=== PATIENT | female | born 1940 | race Caucasian/White ===

== ENCOUNTER → 2018-07-25 | Outpatient (CLI) | payer MEDICARE, BC ==
--- NOTE | 2018-07-26 13:23 | MM ---
Reason for exam: screening (asymptomatic). Last mammogram was performed 1 year and 11 months ago. History: Patient is postmenopausal and has history of breast cancer at age 67. Right breast biopsy 10 years ago invasive cancer. MG 3D Screening Mammo W/Cad Bilateral CC and MLO view(s) were taken. Prior study comparison: August 30, 2016, mammogram. There are scattered fibroglandular densities. No significant changes when compared with prior studies. ASSESSMENT: Benign, BI-RAD 2 RECOMMENDATION: Routine screening mammogram of both breasts in 1 year.
== END | disposition home or self-care (01) ==
LOC: RADMAMWWP 11:01
PROVIDERS: ATTEND Family Medicine
DX: Z12.31 Encounter for screening mammogram for malignant neoplasm of breast (principal)
CPT/HCPCS: 77063; 77067

== ENCOUNTER → 2019-06-04 | Outpatient (CLI) | payer BC, MEDICARE ==
--- NOTE | 2019-06-06 12:16 | P.ARTDOP ---
Arterial Doppler LOWER EXTREMITY ARTERIAL DOPPLER: DATE OF SERVICE: 06/04/2019 Reason for study: Claudication right hip and buttocks. Doppler waveforms: Multiphasic throughout on the left. Multiphasic at the right femoral popliteal as well as the dorsalis pedis. Digital waveform somewhat blunted in the right. Pulse volume recording: Digital waveforms flattened bilaterally. Pressure gradients: Above the low thigh on the right and only at the foot level on the left. Also at the foot level on the right.. Ankle-brachial indices: 0.78 on the right and one on the left.. Toe pressures: 9 on the right, 44 on the left Impression: Suggests moderate right iliofemoral disease. Toe waveforms and pressures suggest either severe vasospastic phenomenon, especially on the right or less likely distal disease. Clinical correlation recommended.
== END | disposition home or self-care (01) ==
LOC: RADUSWWP 13:18
PROVIDERS: ATTEND Family Medicine
DX: I73.9 Peripheral vascular disease, unspecified (principal)
CPT/HCPCS: 93923

== ENCOUNTER → 2019-08-26 | Outpatient (CLI) | payer MEDICARE ==
--- NOTE | 2019-08-27 11:31 | MM ---
Reason for exam: screening (asymptomatic). Last mammogram was performed 1 year and 1 month ago. History: Patient is postmenopausal and has history of breast cancer at age 67. Lumpectomy of the right breast, 2008. Radiation therapy of the right breast, 2008. Physical Findings: A clinical breast exam by your physician is recommended on an annual basis and results should be correlated with mammographic findings. MG 3D Screening Mammo W/Cad Bilateral CC and MLO view(s) were taken. Prior study comparison: July 25, 2018, bilateral MG 3d screening mammo w/cad. August 30, 2016, mammogram. The breast tissue is heterogeneously dense. This may lower the sensitivity of mammography. Finding #1: Architectural distortion in the upper outer quadrant of the right breast consistent with known lumpectomy and treatment changes. Finding #2: There are typically benign dystrophic, round calcifications in both breasts. There is no discrete abnormality. ASSESSMENT: Benign, BI-RAD 2 RECOMMENDATION: Routine screening mammogram of both breasts in 1 year. Manage on a clinical basis with regard to right nipple itching.
== END | disposition home or self-care (01) ==
LOC: RADMAMWWP 12:45
PROVIDERS: ATTEND Family Medicine
DX: Z12.31 Encounter for screening mammogram for malignant neoplasm of breast (principal)
CPT/HCPCS: 77063; 77067

== ENCOUNTER → 2021-02-11 | Outpatient (CLI) | payer MEDICARE ==
--- NOTE | 2021-02-15 09:48 | MM ---
Reason for exam: screening (asymptomatic). Last mammogram was performed 1 year and 6 months ago. History: Patient is postmenopausal and has history of breast cancer at age 67. Lumpectomy of the right breast, 2008. Radiation therapy of the right breast, 2008. Physical Findings: A clinical breast exam by your physician is recommended on an annual basis and results should be correlated with mammographic findings. MG 3D Screening Mammo W/Cad Bilateral CC and MLO view(s) were taken. Prior study comparison: August 26, 2019, bilateral MG 3d screening mammo w/cad. July 25, 2018, bilateral MG 3d screening mammo w/cad. There are scattered fibroglandular densities. Stable right lumpectomy and radiation change. Dystrophic calcifications right breast benign appearing. ASSESSMENT: Benign, BI-RAD 2 RECOMMENDATION: Routine screening mammogram of both breasts.
== END | disposition home or self-care (01) ==
LOC: RADMAMWWP 11:00
PROVIDERS: ATTEND Family Medicine
DX: Z12.31 Encounter for screening mammogram for malignant neoplasm of breast (principal); Z85.3 Personal history of malignant neoplasm of breast; Z78.0 Asymptomatic menopausal state
CPT/HCPCS: 77063; 77067

== ENCOUNTER → 2021-05-28 | Outpatient (CLI) | payer MEDICARE ==
--- NOTE | 2021-05-31 09:37 | CT ---
EXAMINATION TYPE: CT urogram wo/w con DATE OF EXAM: 05/28/2021 COMPARISON: None INDICATION: kamini DLP: 1489.9 mGycm, Automated exposure control for dose reduction was used. CONTRAST: 80 mL of Isovue 300. Study performed without Oral Contrast TECHNIQUE: Axial images were obtained from above the diaphragm to the pubic rami in the axial plane a t 5 mm thick sections. Reconstructed images are reviewed on the computer in the coronal plane. FINDINGS: Limited CT sections are obtained the lung bases. There is a spiculated 1.9 cm area within the right lung base. The major fissure. Complete CT chest recommended for additional evaluation. Infiltrate and neoplasm are within the differential.. CT ABDOMEN: Liver: Normal Spleen: Normal Pancreas: Normal Adrenal glands: The adrenal glands are normal. Gallbladder: Normal Kidneys: No masses are evident. No hydronephrosis is present. There is a 1.1 cm cyst on the superio r pole left kidney. Delayed images were obtained through the kidneys, which remain unremarkable. Three-D reconstructed images and delayed images were obtained in separate computer by the technologis t presented. There is mild prominence of the right ureter. No obstruction is evident. Small kink may be near the proximal right ureter. There is a sectional left ureter not visualized during this exam. Aorta: Vascular calcification is within the aorta. Aorta measures transverse 2.8 cm within the midpo rtion this terminates above the bifurcation. Inferior vena cava: Normal. CT PELVIS: Loops of bowel within the abdomen and pelvis are normal. Diverticulosis without acute diverticulitis is present. There are loops of bowel which are incompletely distended or lack oral contrast limiti ng their evaluation. Appendix: Normal as visualized. Urinary bladder: Normal. No intraluminal masses are evident. Wall appears normal. Genitourinary structures: Uterus is normal. Adnexal regions are clear. Osseous structures: No suspicious lytic or sclerotic lesions. Degenerative changes are through the nichole mbar spine. IMPRESSIONS: 1. Mild right hydroureter of uncertain etiology. 2. No suspicious filling defects within the renal collecting system evident. 3. Suspicious spiculated area within the right lung base. Additional workup with CT chest is recommen ded. 4. Diverticulosis without acute diverticulitis.
== END | disposition home or self-care (01) ==
LOC: RADCTMAIN 15:13
PROVIDERS: ATTEND Urology
DX: N13.30 Unspecified hydronephrosis (principal); K57.30 Diverticulosis of large intestine without perforation or abscess without bleeding
CPT/HCPCS: 82565; 84520; 74178; 36415; 74400; Q9967

== ENCOUNTER → 2021-07-12 | Outpatient (CLI) | payer MEDICARE ==
--- NOTE | 2021-07-12 12:20 | CT ---
EXAMINATION TYPE: CT chest w con DATE OF EXAM: 07/12/2021 COMPARISON: No prior CT chest available for review HISTORY: nodules CT DLP: 232.9 mGycm Automated exposure control for dose reduction was used. CONTRAST: CT scan of the chest is performed with IV Contrast, patient injected with 100 mL of Isovue 300. FINDINGS: LUNGS: Biapical parenchymal scarring right greater than left. More of a masslike area right apical re gion measures 3 cm in greatest dimension. Additional nodular pleural thickening right upper lobe late rally measures 1.3 cm. Pulmonary nodule left upper lobe measures 5.1 mm image 32. Within the right lo wer lobe spiculated density measures 1.4 cm. While the findings are likely postinflammatory in nature I cannot exclude malignancy. PET CT recommended for further evaluation. Hyperinflation compatible wi th COPD. MEDIASTINUM: There are no greater than 1 cm hilar or mediastinal lymph nodes. No pericardial effusi on is seen. Thoracic aorta is of normal caliber. The heart is not enlarged. UPPER ABDOMEN: No significant abnormality appreciated. OTHER: No additional significant abnormality is seen. IMPRESSION: Scattered areas of pulmonary nodularity as discussed felt to reflect postinflammatory change however malignancy is not excluded. Correlate with PET/CT.
== END | disposition home or self-care (01) ==
LOC: RADCTMAIN 11:10
PROVIDERS: ATTEND Internal Medicine
DX: R91.8 Other nonspecific abnormal finding of lung field (principal)
CPT/HCPCS: 82565; 84520; 71260; 36415; Q9967

== ENCOUNTER → 2021-08-13 | Outpatient (CLI) | payer MEDICARE ==
--- NOTE | 2021-08-16 08:26 | PE ---
EXAMINATION TYPE: PET CT fusion skull to thigh DATE OF EXAM: 08/13/2021 COMPARISON: Chest CT July 12, 2021 HISTORY: Solitary pulmonary nodule, abnormal CT. TECHNIQUE: Following the intravenous administration of 10.94 mCi of F-18 FDG, whole body images are performed from the skull base to the midthigh. Images are reviewed on the computer in the coronal, a xial, and sagittal planes. Reconstructed rotating images are created on independent workstation and reviewed on the computer. A localization and attenuation correction CT is performed in conjunction with the PET scan. Blood glucose level is 106. SCAN: Initial Scan FINDINGS: SKULL BASE AND NECK: No abnormal hypermetabolic uptake. CHEST, MEDIASTINUM, AND HILAR REGION: Back wall mild to moderate underlying emphysematous changes red emonstrated with [id number] biapical pleural/parenchymal scarring extending posteriorly and i nferiorly redemonstrated. No abnormal hypermetabolic uptake. Scattered [id number] parenchymal s carring including focal scarring lower lobe axial image #1 redemonstrated. No abnormal hypermetabolic uptake. ABDOMEN AND PELVIS: Normal excretion. No abnormal hypermetabolic uptake. OSSEOUS STRUCTURES: No abnormal metabolic uptake. OTHER CT: Multiple moderate calcified plaque bilateral carotid bulb level. Mild cardiomegaly with mod erate to severe right atrial dilatation. Moderate to severe three-vessel coronary artery calcificatio n. Moderate to severe atherosclerotic changes in the ectatic abdominal aorta extending into iliac branch vessels. Sigmoid colonic diverticulosis. Underlying scoliosis in the lumbar spine. Loss of normal nichole mbar lordosis on the sagittal images. Multilevel moderate spurring. IMPRESSION: No suspicious hypermetabolic uptake to suggest malignancy. Findings are consistent with p ostinflammatory scarring.
== END | disposition home or self-care (01) ==
LOC: RADPETMAIN 11:48
PROVIDERS: ATTEND Internal Medicine Critical Care Medicine
DX: R91.1 Solitary pulmonary nodule (principal)
CPT/HCPCS: 78815; A9552

== ENCOUNTER → 2022-02-17 | Outpatient (CLI) | payer MEDICARE ==
--- NOTE | 2022-02-18 07:55 | BD ---
EXAMINATION TYPE: Axial Bone Density DATE OF EXAM: 02/17/2022 COMPARISON: NONE CLINICAL HISTORY: 81 year old Female. ICD-10 CODE: [id number] OSTEOPOROSIS Height: 65 Weight: 149.0 FRAX RISK QUESTIONS: Alcohol (3 or more units per day): no Family History (Parent hip fracture): no Glucocorticoids (More than 3mos): no (Ex: prednisone, prednisolone, methylprednisolone, dexamethasone, and hydrocortisone). History of Fracture in Adulthood: no Secondary Osteoporosis: 1. Type 1 Diabetes: no 2. Hyperthyroidism: no 3. Menopause before 45: no 4. Malnutrition: no 5. Chronic liver disease: no Rheumatoid Arthritis: no Current Tobacco Use: no RISK FACTORS HISTORY OF: Surgery to Spine/Hip(right/left)/Wrist (right/left): no Family History of Osteoporosis: no Active: no Diet low in dairy products/other sources of calcium: yes Postmenopausal woman: yes Lost more than 2 inches in height since high school: no MEDICATIONS: Additional History: EXAM MEASUREMENTS: Bone mineral densitometry was performed using the [employer] System. Bone mineral density as measured about the Lumbar spine is: ----- L1-L4(G/cm2): 1.371 T Score Values are as follows: ----- L1: 0.1 ----- L2: 1.3 ----- L3: 2.5 ----- L4: 2.6 ----- L1-L4: 1.6 Bone mineral density : baseline Bone mineral density about the R hip (g/cm2): 0.805 Bone mineral density about the L hip (g/cm2): 0.776 T Score values are as follows: -----R Neck: -1.7 -----L Neck: -1.9 -----R Total: -1.3 -----L Total: -1.3 Bone mineral density : baseline FRAX%s: The graph provided illustrates a 15.2% chance for a major osteoporotic fx and a 4.2% chance f or the hips probability for fx in 10 years time. IMPRESSION: Osteopenia (T Score between -2.5 and -1). There is slightly increased risk of fracture and the patient may be considered for treatment. Re-Screen 2-5 years. NOTE: T-SCORE=SD OF THE YOUNG ADULT MEAN.
== END | disposition home or self-care (01) ==
LOC: RADBDWWP 18:07
PROVIDERS: ATTEND Internal Medicine
DX: M85.89 Other specified disorders of bone density and structure, multiple sites (principal)
CPT/HCPCS: 77080

== ENCOUNTER → 2022-02-24 | Outpatient (CLI) | payer MEDICARE ==
--- NOTE | 2022-02-24 13:37 | MM ---
Reason for Exam: Screening (asymptomatic). Last mammogram was performed 1 year(s) and 1 month(s) ago. Patient History: Menarche at age 14. First Full-Term at age 23. Postmenopausal. Breast cancer, right, age 67. 02/07/2000, Benign MG pre op needle loc LT - 2 on the left side. 2008, Lumpectomy on the Right side. 2008, Radiation Therapy on the right side. Prior Study Comparison: 07/25/2018 Bilateral Screening Mammogram, [facility]. 08/26/2019 Bilateral Screening Mammogram, [facility]. 02/11/2021 Bilateral Screening Mammogram, [facility]. Tissue Density: There are scattered fibroglandular densities. Findings: Analyzed By CAD. Diminished size with distortion and dystrophic calcification of posterior upper outer aspect right breast redemonstrated. Occasional scattered benign-appearing round calcifications throughout both breasts are again seen. There is new 7 mm oval circumscribed lesion in the middle depth upper outer quadrant just anterior to the dystrophic calcification roughly 5 cm distance from nipple that warrants follow-up in the right breast. Overall Assessment: Incomplete: need additional imaging evaluation, BI-RAD 0 Management: Diagnostic Breast Ultrasound of the right breast. Targeted ultrasound right breast. Electronically signed and approved by: Jamari Mckenzie M.D.
== END | disposition home or self-care (01) ==
LOC: RADMAMWWP 11:34
PROVIDERS: ATTEND Internal Medicine
DX: Z12.31 Encounter for screening mammogram for malignant neoplasm of breast (principal); Z78.0 Asymptomatic menopausal state
CPT/HCPCS: 77063; 77067

== ENCOUNTER → 2022-03-22 | Outpatient (CLI) | payer MEDICARE ==
--- NOTE | 2022-03-22 15:03 | USB ---
Reason for Exam: Additional evaluation requested from prior study. Patient History: Menarche at age 14. First Full-Term at age 23. Postmenopausal. Breast cancer, right, age 67. 02/07/2000, Benign MG pre op needle loc LT - 2 on the left side. 2008, Lumpectomy on the Right side. 2008, Radiation Therapy on the right side. Prior Study Comparison: 08/26/2019 Bilateral Screening Mammogram, [facility]. 02/11/2021 Bilateral Screening Mammogram, [facility]. 02/24/2022 Bilateral MG 3D screening mammo w/cad, [facility]. Findings: The upper outer quadrant of the right breast, the axilla of the right breast and the retroareolar of the right breast were scanned. Targeted right breast ultrasound upper outer quadrant from 9:00 to 11:00 including the subareolar region and axilla. At the 10:00 position 3 cm from the nipple, there is a 6 x 6 x 4 mm circumscribed oval hypoechoic lesion with posterior through transmission. This could represent a debris-filled cyst and should be reassessed in 6 months. Possible mammographic correlate. Hypoechoic shadowing scar is noted at the 10:00 position. At 11:00, 7 cm from the nipple, there is an 8 x 7 x 5 mm hypoechoic area with slightly irregular borders. No internal vascularity or posterior shadowing. Given the slightly irregular contour and patient's history of prior breast cancer, biopsy is recommended. Some trace fluid behind the nipple is nonspecific. Overall Assessment: Suspicious, BI-RAD 4 Management: Ultrasound Core Biopsy of the right breast. 1. Ultrasound-guided core needle biopsy 11:00, 8 mm lesion within the right breast. 2. Additional 6 month follow-up right breast ultrasound for the 6 mm 10:00 lesion, possible debris-filled cyst. Results were given to the patient verbally at the time of exam. Electronically signed and approved by: Jeana Leiva M.D. Radiologist
== END | disposition home or self-care (01) ==
LOC: RADUSWWP 13:51
PROVIDERS: ATTEND Internal Medicine
DX: N64.89 Other specified disorders of breast (principal); Z85.3 Personal history of malignant neoplasm of breast

== ENCOUNTER → 2022-04-12 | Day surgery (SDC) | payer MEDICARE ==
--- NOTE | 2022-04-15 11:19 | MM ---
Reason for Exam: Post Procedure Mammogram. Last screening mammogram was performed 1 month(s) ago. Patient History: Menarche at age 14. First Full-Term at age 23. Postmenopausal. Breast cancer, right, age 67. 02/07/2000, Benign MG pre op needle loc LT - 2 on the left side. 2008, Lumpectomy on the Right side. 2008, Radiation Therapy on the right side. Prior Study Comparison: 08/26/2019 Bilateral Screening Mammogram, [facility]. 02/11/2021 Bilateral Screening Mammogram, [facility]. 02/24/2022 Bilateral MG 3D screening mammo w/cad, [facility]. Tissue Density: Right: There are scattered fibroglandular densities. Pathology Description: Location: 11 o'clock. Marker Left Behind. Cores: 7 Skin Nicks: 1 Gauge: 14 The procedure was explained to the patient. The risks, complications, benefits and alternatives were discussed and any questions were answered. Informed consent was obtained. Patient was placed supine on the ultrasound table and prepped and draped in the usual sterile fashion. Utilizing a 14 gauge needle, five passes were made into the requested lesion. Surgical clip placed post procedure. Mammogram images demonstrate ideal placement of the clip. Patient was stable throughout the procedure. Pathology is pending. All elements of maximal barrier technique were utilized. IMPRESSION: 1. Successful ultrasound guided core biopsy right breast. Pathology Results: Result: Benign, Fat necrosis. RIGHT BREAST, 11:00 POSITION, CORE BIOPSY: Benign breast tissue with fibrous scar, fat necrosis and focal microcalcification (see note). Overall Assessment: Benign Assessment: MG diagnostic mammo RT wo CAD - Right: Benign, BI-RAD 2. Management: Diagnostic Breast Ultrasound of the right breast in 6 months. Electronically signed and approved by: Luis Quintero M.D. Radiologis
== END ==
LOC: RADUSWWP 12:19
PROVIDERS: ATTEND Surgery
DX: R92.0 Mammographic microcalcification found on diagnostic imaging of breast (principal); L90.5 Scar conditions and fibrosis of skin; Z85.3 Personal history of malignant neoplasm of breast; Z78.0 Asymptomatic menopausal state; Z92.3 Personal history of irradiation
CPT/HCPCS: 88305; 77065; 19083; A4648

== ENCOUNTER 2023-03-26 07:19 | Emergency (ER) | payer MEDICARE ==
[2023-03-26 07:26] VITALS: TEMP 99.4
[2023-03-26 08:18] LABS: Basophils % (A) 0 %; Eosinophils # (A) 0.1 k/uL (0-0.7); Eosinophils % (A) 1 %; HGB 14.8 gm/dL (11.4-16.0); Lymphocytes # (A) 0.7 k/uL (1.0-4.8); Lymphocytes % (A) 10 %; MCH 33.1 pg (25.0-35.0); MCHC 32.9 g/dL (31.0-37.0); MCV 100.6 fL (80.0-100.0); Macrocytosis Slight; Mean Platelet Volume 7.7; Monocytes # (A) 0.5 k/uL (0-1.0); Monocytes % (A) 7 %; Neutrophils # (A) 5.5 k/uL (1.3-7.7); Neutrophils % (A) 81 %; Platelet Count 172 k/uL (150-450); RBC 4.48 m/uL (3.80-5.40); RDW 14.2 % (11.5-15.5); WBC 6.8 k/uL (3.8-10.6)
[2023-03-26 08:27] LABS: INR 0.9 (<1.2); Partial Thromboplastin Time 22.8 sec (22.0-30.0); Prothrombin Time 9.9 sec (9.0-12.0)
[2023-03-26 08:28] LABS: ALT 22 U/L (4-34); AST 38 U/L (14-36); African American GFR (CKD) 83 (>60 ml/min/1.73 sqM); Albumin 3.9 g/dL (3.5-5.0); Alkaline Phosphatase 77 U/L (38-126); Anion Gap 8 mmol/L; Blood Urea Nitrogen 20 mg/dL (7-17); Calcium 8.9 mg/dL (8.4-10.2); Carbon Dioxide 22 mmol/L (22-30); Chloride 108 mmol/L (98-107); Creatine Kinase 139 U/L (30-135); Glucose 100 mg/dL (74-99); Non-African American GFR(CKD) 72 (>60 ml/min/1.73 sqM); Potassium 3.6 mmol/L (3.5-5.1); Sodium 138 mmol/L (137-145); Total Bilirubin 0.6 mg/dL (0.2-1.3); Total Protein 7.5 g/dL (6.3-8.2)
--- NOTE | 2023-03-26 08:34 | XR ---
EXAMINATION TYPE: XR chest 2V DATE OF EXAM: 03/26/2023 COMPARISON: None INDICATION: Altered mental status, fall TECHNIQUE: Frontal and lateral views of the chest are obtained. FINDINGS: The heart size is normal. The pulmonary vasculature is normal. The lungs are clear. No pneumothorax is evident. No displaced rib fractures are identified. IMPRESSION: 1. No acute pulmonary process.
--- NOTE | 2023-03-26 08:41 | ED ---
General Adult HPI - General Chief complaint: Fall Stated complaint: falling Time Seen by Provider: 03/26/23 07:25 Source: patient Mode of arrival: wheelchair - History of Present Illness Initial comments: 82-year-old female past medical history of breast cancer in remission, diabetes, hypertension who presents to the emergency department with altered gait. States that she's been having several falls recently. Patient had a fall 3 weeks ago where she landed on her right chest wall. Denies hitting her head or losing consciousness. The patient then ended up having a fall again last night and one at 4 AM this morning. States that over the past 12 hours she's had significant inability to ambulate and continues to feel like she is falling off to the right. She does not take any blood thinners. Does take a baby aspirin daily. Last dose was yesterday. She denies any headaches or visual changes. No speech deficit. A confusion from the patient. Denies any lateralizing weakness. She does present to the emergency department accompanied by her daughter. Denies an y neck or back pain. No other alleviating, precipitating or modifying factors - Related Data Home Medications Medication Instructions Recorded Confirmed Acetaminophen Tab [Tylenol] 650 mg PO Q4H PRN 03/24/22 03/24/22 Aspirin EC [Ecotrin Low Dose] 81 mg PO DAILY 03/24/22 03/24/22 B,C/Folic/Zinc/Copper Ox/Vit E 1 each PO DAILY 03/24/22 03/24/22 [Stress B-Complex Tablet] Calcium Carbonate [Calcium] 600 mg PO BID 03/24/22 03/24/22 Celecoxib [Celebrex] 400 mg PO DAILY 03/24/22 03/24/22 Meloxicam [Mobic] 15 mg PO DAILY 03/24/22 03/24/22 Multivitamins, Thera [Multivitamin 1 tab PO DAILY 03/24/22 03/24/22 (formulary)] Pravastatin Sodium [Pravachol] 40 mg PO DAILY 03/24/22 03/24/22 Vit C/E/Zn/Coppr/Lutein/Zeaxan 1 each PO DAILY 03/24/22 03/24/22 [Preservision Areds 2 Softgel] atenoloL [Tenormin] 25 mg PO DAILY 03/24/22 03/24/22 clonazePAM [KlonoPIN] 1 mg PO BID 03/24/22 03/24/22 Allergies Allergy/AdvReac Type Severity Reaction Status Date / Time No Known Allergies Allergy Verified 03/26/23 07:25 Review of Systems ROS Statement: Those systems with pertinent positive or pertinent negative responses have been documented in the HPI. ROS Other: All systems not noted in ROS Statement are negative. Past Medical History Past Medical History: Cancer, Diabetes Mellitus, Hyperlipidemia, Hypertension, Osteoarthritis (OA), Thyroid Disorder Additional Past Medical History / Comment(s): macular degeneration. Hx of breast cancer right breast 2006 History of Any Multi-Drug Resistant Organisms: None Reported Past Surgical History: Breast Surgery Additional Past Surgical History / Comment(s): bilat toe surgery? Pneumothorax 50 years ago Past Anesthesia/Blood Transfusion Reactions: No Reported Reaction Past Psychological History: No Psychological Hx Reported Smoking Status: Current every day smoker Past Alcohol Use History: None Reported Past Drug Use History: None Reported General Exam General appearance: alert, in no apparent distress Head exam: Present: atraumatic, normocephalic, normal inspection Eye exam: Present: normal appearance, PERRL, EOMI. Absent: scleral icterus, conjunctival injection, periorbital swelling ENT exam: Present: normal exam, mucous membranes moist Neck exam: Present: normal inspection. Absent: tenderness, meningismus, lymphadenopathy Respiratory exam: Present: normal lung sounds bilaterally. Absent: respiratory distress, wheezes, rales, rhonchi, stridor Cardiovascular Exam: Present: regular rate, normal rhythm, normal heart sounds. Absent: systolic murmur, diastolic murmur, rubs, gallop, clicks GI/Abdominal exam: Present: soft, normal bowel sounds. Absent: distended, tenderness, guarding, rebound, rigid Extremities exam: Present: normal inspection, full ROM, normal capillary refill. Absent: tenderness, pedal edema, joint swelling, calf tenderness Back exam: Present: normal inspection Neurological exam: Present: alert, oriented X3, CN II-XII intact, other (Finger to nose is symmetric bilaterally. [id number]-qr-[id number] is weaker on the left. She has equal special equipment technician strength. Face is symmetric. Tongue is midline. Speech is clear. Significant ataxia upon ambulation) Psychiatric exam: Present: normal affect, normal mood Skin exam: Present: warm, dry, intact, normal color. Absent: rash Course Vital Signs 07/11/1703/26/23 03/26/23 07:20 09:00 10:00 Temperature 99.4 F Pulse Rate 81 64 66 Respiratory 18 16 18 Rate Blood Pressure 178/88 178/111 179/98 O2 Sat by Pulse 98 98 95 Oximetry 03/26/23 03/26/23 10:32 10:53 Temperature Pulse Rate 60 62 Respiratory 16 15 Rate Blood Pressure 179/93 155/82 O2 Sat by Pulse 95 Oximetry - Reevaluation(s) Reevaluation #1: Calling [facility] for transfer 03/26/23 09:45 Medical Decision Making - Medical Decision Making Was pt. sent in by a medical professional or institution (, PA, SOURCING INTERN, urgent care, hospital, or halfway...) When possible be specific @ -No Did you speak to anyone other than the patient for history (EMS, parent, family, police, friend...)? What history was obtained from this source @ -Daughter helps provide history Did you review nursing and triage notes (agree or disagree)? Why? @ -I reviewed and agree with nursing and triage notes Were old charts reviewed (outside hosp., previous admission, EMS record, old EKG, old radiological studies, urgent care reports/EKG's, halfway records)? Report findings @ -No old charts were reviewed Differential Diagnosis (chest pain, altered mental status, abdominal pain women, abdominal pain men, vaginal bleeding, weakness, fever, dyspnea, syncope, headache, dizziness, GI bleed, back pain, seizure, CVA, palpatations, mental health, musculoskeletal)? @ -Differential Altered Mental Status: Hypoglycemia, DKA, hypercapnia, ETOH, overdose, CO poisoning, trauma, myxedema coma, HTN encephalopathy, infection, encephalitis, psychosis, intercranial hemorrhage, hepatic encephalopathy, meningitis, CVA, this is not meant to be an all-inclusive list EKG interpreted by me (3pts min.). @ -Yes and demonstrates hand bradycardia with a rate of 51. TX interval 145. QRS 101. QTC of 490. No acute ST segment elevations or depressions X-rays interpreted by me (1pt min.). @ -None done CT interpreted by me (1pt min.). @ -Yes and demonstrates a subdural hematoma on the right with midline shift 6 mm. Acute to subacute U/S interpreted by me (1pt. min.). @ -None done What testing was considered but not performed or refused? (CT, X-rays, U/S, labs)? Why? @ -None What meds were considered but not given or refused? Why? @ -None Did you discuss the management of the patient with other professionals (professionals i.e. , PA, SOURCING INTERN, lab, RT, psych nurse, social media job titles, junior technical writer, teacher, plant protection officer, egg caser)? Give summary @ -Discuss the case with [facility] however cannot get a hold of their neurosurgeon. Then spoke with Dr. Martin at [facility] who accepted the patient Was smoking cessation discussed for >3mins.? @ -No Was critical care preformed (if so, how long)? @ -45 minutes Were there social determinants of health that impacted care today? How? (Homelessness, low income, unemployed, alcoholism, drug addiction, transportation, low edu. Level, literacy, decrease access to med. care, residential, rehab)? @ -No Was there de-escalation of care discussed even if they declined (Discuss DNR or withdrawal of care, Hospice)? DNR status @ -No What co-morbidities impacted this encounter? (DM, HTN, Smoking, COPD, CAD, Cancer, CVA, ARF, Chemo, Hep., AIDS, mental health diagnosis, sleep apnea, morbid obesity)? @ -hypertension Was patient admitted / discharged? Hospital course, mention meds given and route, prescriptions, significant lab abnormalities, going to OR and other pertinent info. @ -Upon arrival patient was placed into room 15. Thorough history and physical exam was performed. NIH is assessed and the patient scores a 0. Patient does get up to ambulate to the bathroom and is extremely unsteady on her feet. IV is established laboratory studies were conducted. CT is performed the patient's head which demonstrates a large right-sided subdural bleed. Blood pressure is controlled. She is not on any blood thinners. Urine shows UTI. She does get a dose of Rocephin. Called and spoke with [facility]. They did page her neurosurgeon 3 times however they did not receive a call back. At this time [facility] is contacted and does immediately accept the patient. Accepting physician is Dr. Martin. Patient will be taken to the resuscitation bay. She does sign COBRA forms and the patient is transferred in stable condition with a guarded prognosis Undiagnosed new problem with uncertain prognosis? @ -Yes Drug Therapy requiring intensive monitoring for toxicity (Heparin, Nitro, Insulin, Cardizem)? @ -No Were any procedures done? @ -No Diagnosis/symptom? @ -Acute ataxia, acute to subacute subdural hematoma, reported fall without head injury, acute UTI Acute, or Chronic, or Acute on Chronic? @ -Acute Uncomplicated (without systemic symptoms) or Complicated (systemic symptoms)? @ -Complicated Side effects of treatment? @ -No Exacerbation, Progression, or Severe Exacerbation? @ -No Poses a threat to life or bodily function? How? (Chest pain, [place], [place], pneumonia, PE, COPD, DKA, ARF, appy, cholecystitis, CVA, Diverticulitis, Homicidal, Suicidal, threat to staff... and all critical care pts) @ -severe, life threatening risk of due to brain bleed - Lab Data Result diagrams: 03/26/23 08:07 03/26/23 08:07 Lab Results 03/26/23 03/26/23 03/26/23 Range/Units 08:07 08:07 08:07 WBC 6.8 (3.8-10.6) k/uL RBC 4.48 (3.80-5.40) m/uL Hgb 14.8 (11.4-16.0) gm/dL Hct 45.0 (34.0-46.0) % MCV 100.6 H (80.0-100.0) fL MCH 33.1 (25.0-35.0) pg MCHC 32.9 (31.0-37.0) g/dL RDW 14.2 (11.5-15.5) % Plt Count 172 (150-450) k/uL MPV 7.7 Neutrophils % 81 % Lymphocytes % 10 % Monocytes % 7 % Eosinophils % 1 % Basophils % 0 % Neutrophils # 5.5 (1.3-7.7) k/uL Lymphocytes # 0.7 L (1.0-4.8) k/uL Monocytes # 0.5 (0-1.0) k/uL Eosinophils # 0.1 (0-0.7) k/uL Basophils # 0.0 (0-0.2) k/uL Macrocytosis Slight PT 9.9 (9.0-12.0) sec INR 0.9 (<1.2) APTT 22.8 (22.0-30.0) sec Sodium 138 (137-145) mmol/L Potassium 3.6 (3.5-5.1) mmol/L Chloride 108 H (98-107) mmol/L Carbon Dioxide 22 (22-30) mmol/L Anion Gap 8 mmol/L BUN 20 H (7-17) mg/dL Creatinine 0.79 (0.52-1.04) mg/dL Est GFR (CKD-EPI)AfAm 83 (>60 ml/min/1.73 sqM) Est GFR (CKD-EPI)NonAf 72 (>60 ml/min/1.73 sqM) Glucose 100 H (74-99) mg/dL Calcium 8.9 (8.4-10.2) mg/dL Total Bilirubin 0.6 (0.2-1.3) mg/dL AST 38 H (14-36) U/L ALT 22 (4-34) U/L Alkaline Phosphatase 77 (38-126) U/L Creatine Kinase 139 H (30-135) U/L Troponin I (0.000-0.034) ng/mL Total Protein 7.5 (6.3-8.2) g/dL Albumin 3.9 (3.5-5.0) g/dL Urine Color Urine Appearance (Clear) Urine pH (5.0-8.0) Ur Specific [place] (1.001-1.035) Urine Protein (Negative) Urine Glucose (UA) (Negative) Urine Ketones (Negative) Urine Blood (Negative) Urine Nitrite (Negative) Urine Bilirubin (Negative) Urine Urobilinogen (<2.0) mg/dL Ur Leukocyte Esterase (Negative) Urine RBC (0-5) /hpf Urine WBC (0-5) /hpf Urine Bacteria (None) /hpf Urine Mucus (None) /hpf 03/26/23 03/26/23 Range/Units 08:07 09:04 WBC (3.8-10.6) k/uL RBC (3.80-5.40) m/uL Hgb (11.4-16.0) gm/dL Hct (34.0-46.0) % MCV (80.0-100.0) fL MCH (25.0-35.0) pg MCHC (31.0-37.0) g/dL RDW (11.5-15.5) % Plt Count (150-450) k/uL MPV Neutrophils % % Lymphocytes % % Monocytes % % Eosinophils % % Basophils % % Neutrophils # (1.3-7.7) k/uL Lymphocytes # (1.0-4.8) k/uL Monocytes # (0-1.0) k/uL Eosinophils # (0-0.7) k/uL Basophils # (0-0.2) k/uL Macrocytosis PT (9.0-12.0) sec INR (<1.2) APTT (22.0-30.0) sec Sodium (137-145) mmol/L Potassium (3.5-5.1) mmol/L Chloride (98-107) mmol/L Carbon Dioxide (22-30) mmol/L Anion Gap mmol/L BUN (7-17) mg/dL Creatinine (0.52-1.04) mg/dL Est GFR (CKD-EPI)AfAm (>60 ml/min/1.73 sqM) Est GFR (CKD-EPI)NonAf (>60 ml/min/1.73 sqM) Glucose (74-99) mg/dL Calcium (8.4-10.2) mg/dL Total Bilirubin (0.2-1.3) mg/dL AST (14-36) U/L ALT (4-34) U/L Alkaline Phosphatase (38-126) U/L Creatine Kinase (30-135) U/L Troponin I <0.012 (0.000-0.034) ng/mL Total Protein (6.3-8.2) g/dL Albumin (3.5-5.0) g/dL Urine Color Yellow Urine Appearance Cloudy H (Clear) Urine pH 6.5 (5.0-8.0) Ur Specific [place] 1.011 (1.001-1.035) Urine Protein Trace H (Negative) Urine Glucose (UA) 3+ H (Negative) Urine Ketones Negative (Negative) Urine Blood Small H (Negative) Urine Nitrite Negative (Negative) Urine Bilirubin Negative (Negative) Urine Urobilinogen <2.0 (<2.0) mg/dL Ur Leukocyte Esterase Large H (Negative) Urine RBC 16 H (0-5) /hpf Urine WBC >182 H (0-5) /hpf Urine Bacteria Rare H (None) /hpf Urine Mucus Rare H (None) /hpf Disposition Clinical Impression: Fall, Subdural hematoma Disposition: OTHER INSTITUTION NOT DEFINED Condition: Serious Is patient prescribed a controlled substance at d/c from ED?: No Referrals: Symone Pisano MD [Primary Care Provider] - 1-2 days Time of Disposition: 09:59 - Out of Hospital Transfer - Req. Specs Out of Hospital Transfer - Requested Specifics: Other Emergency Center ([facility])
[2023-03-26 09:54] LABS: Appearance,Urine Cloudy (Clear); Bacteria,Urine Rare /hpf; Bilirubin,Urine Negative (Negative); Blood,Urine Small (Negative); Color,Urine Yellow; Glucose,Urine (UA) 3+ (Negative); Ketones,Urine Negative (Negative); Leukocyte Esterase,Urine Large (Negative); Mucus,Urine Rare /hpf; Nitrite,Urine Negative (Negative); PH, Urine 6.5 (5.0-8.0); Protein,Urine Trace (Negative); RBC,Urine 16 /hpf (0-5); Specific Gravity,Urine 1.011 (1.001-1.035); Urobilinogen,Urine <2.0 mg/dL (<2.0); WBC,Urine >182 /hpf (0-5)
--- NOTE | 2023-03-26 09:56 | CT ---
EXAMINATION TYPE: CT brain wo con DATE OF EXAM: 03/26/2023 COMPARISON: None INDICATION: Neuro deficits, acute, stroke suspected DLP: 1507.9 mGycm, Automated exposure control for dose reduction was used. CONTRAST: None CT of the brain is performed utilizing 3 mm thick sections through the posterior fossa and 3 mm thick sections through the remaining calvarium. Study is performed within 24 hours of arrival to the hosp ital. There is a large concentric collection along the right subdural space with a depth of 2.1 cm. Finding s are compatible with an acute to subacute large right subdural hematoma. This has mass effect on the adjacent brain. Subfalcine herniation with midline shift of 0.6 cm is present. Quadrigeminal plate a nd ambient cistern are patent. No subfalcine herniation is evident. Report was called to the emergenc y room physician by Dr. Dillon by telephone at time of preliminary interpretation. No mass lesion is evident. No acute infarcts are evident. Ventricles and sulci are appropriate for the patient age. There is effacement of the sulci on the ri ght subdural hematoma. Paranasal sinuses and mastoid air cells are clear. IMPRESSIONS: 1. Large right subdural hematoma extending from the temporal lobe to the vertex. This is effacing t he right cerebral sulci and has a 0.6 cm subfalcine herniation right to left.
[2023-03-26] MEDS ORDERED: cefTRIAXone IN SWFI 1,000 MG/10 ML SYRINGE IVP STA (10:24)
--- NOTE | 2023-03-26 10:39 | CT ---
EXAMINATION TYPE: CT angio head neck DATE OF EXAM: 03/26/2023 HISTORY: Neuro deficit, acute, stroke suspected COMPARISON: None CT DLP: 1507.9 mGycm. Automated Exposure Control for Dose Reduction was Utilized. TECHNIQUE: CTA scan of the neck is performed without and with IV Contrast, patient injected with 65 ml mL of Isovue 370, axial images are obtained, coronal and sagittal reformatted images are reviewed. Three-D reconstructed images are created on an independent workstation and reviewed. Source images are reviewed. FINDINGS: Carotid/Vascular Structures: May be a common origin of the subclavian and internal carotid artery on the left from the innominate. Atheromatous calcifications at bilateral carotid bifurcations. On the l eft this approaches 45% narrowing at the origin of the internal carotid artery. Significant flow-limi ting stenosis is not evident. Vertebral arteries are codominant. Internal carotid arteries and verteb ral arteries are patent to the skull base. Cervical of [place]: Vertebral basilar system appears normal. Posterior cerebral vasculature is unrema rkable. Internal carotid arteries bifurcate normally into A1 and M1 segments. A2 segments are normal. The anterior communicating artery is patent. Left Posterior communicating artery is patent. Right po sterior communicating artery is absent. Other: Note is made of increased density within the posterior right apex measuring 3.3 x 2.2 cm. Unde rlying mass should be considered. There is similar increased density within the posterior medial left lung measuring 3.3 x 2.0 cm. Some pleural thickening along the upper right chest margins. No active extravasation into this subdural hematoma is evident. Please also see CT brain report same date IMPRESSION: 1. No flow-limiting stenosis bilateral carotid bifurcations. There is mild narrowing on the left appr oaching 45%. 2. Normal [place] of [place]. 3. Large right subdural hematoma with midline shift. Please also see CT brain report same date NASCET criteria was used in interpretation of this exam?
[2023-03-26] MEDS ORDERED: NICOTINE 21MG/24HR PATCH TRANSDERM STA (10:47)
[2023-03-26 10:54] VITALS: BP 155/82; PULSE 62; RESP 15
[2023-03-26] MEDS ORDERED: niCARdipine 20 MG in SODIUM CHLORIDE 0.9% 192 ML IV SCH (11:00)
== END 2023-03-26 11:01 | disposition other institution (70) ==
LOC: SUPCPDRO 07:19 → EC 07:19
DX: S06.5XAA Traumatic subdural hemorrhage with loss of consciousness status unknown, initial encounter (principal); E11.9 Type 2 diabetes mellitus without complications; E78.5 Hyperlipidemia, unspecified; I10 Essential (primary) hypertension; M19.90 Unspecified osteoarthritis, unspecified site; F17.200 Nicotine dependence, unspecified, uncomplicated; Z79.1 Long term (current) use of non-steroidal anti-inflammatories (NSAID); Z79.899 Other long term (current) drug therapy; Z79.82 Long term (current) use of aspirin; W19.XXXA Unspecified fall, initial encounter
CPT/HCPCS: 36415; 93005; 80053; 82550; 84484; 85025; 85610; 85730; 81001; 71046; 70496; 70450; 70498; 99291; 96374; 96375; S4990; J0696; Q9967; 51702

== ENCOUNTER 2023-04-23 11:05 | Observation (INO) | payer MEDICARE ==
[2023-04-23 12:04] LABS: Basophils % (A) 0 %; Eosinophils % (A) 1 %; HCT 42.3 % (34.0-46.0); HGB 14.5 gm/dL (11.4-16.0); Lymphocytes # (A) 0.5 k/uL (1.0-4.8); Lymphocytes % (A) 9 %; MCH 33.3 pg (25.0-35.0); MCHC 34.3 g/dL (31.0-37.0); MCV 97.1 fL (80.0-100.0); Mean Platelet Volume 7.6; Monocytes # (A) 0.5 k/uL (0-1.0); Monocytes % (A) 8 %; Neutrophils # (A) 4.5 k/uL (1.3-7.7); Neutrophils % (A) 80 %; Platelet Count 233 k/uL (150-450); RBC 4.35 m/uL (3.80-5.40); RDW 13.1 % (11.5-15.5); WBC 5.6 k/uL (3.8-10.6)
[2023-04-23 12:18] LABS: Partial Thromboplastin Time 22.3 sec (22.0-30.0); Prothrombin Time 10.7 sec (9.0-12.0)
[2023-04-23 12:31] LABS: ALT 19 U/L (4-34); AST 32 U/L (14-36); African American GFR (CKD) 78 (>60 ml/min/1.73 sqM); Albumin 3.8 g/dL (3.5-5.0); Alkaline Phosphatase 77 U/L (38-126); Anion Gap 10 mmol/L; Blood Urea Nitrogen 19 mg/dL (7-17); Calcium 10.2 mg/dL (8.4-10.2); Carbon Dioxide 25 mmol/L (22-30); Chloride 100 mmol/L (98-107); Glucose 121 mg/dL (74-99); Non-African American GFR(CKD) 68 (>60 ml/min/1.73 sqM); Potassium 3.3 mmol/L (3.5-5.1); Sodium 135 mmol/L (137-145); Total Bilirubin 0.7 mg/dL (0.2-1.3)
--- NOTE | 2023-04-23 12:36 | CT ---
EXAMINATION TYPE: CT brain cspine wo con CT DLP: 1309.5 mGycm, Automated exposure control for dose reduction was used. DATE OF EXAM: 04/23/2023 12:23 PM COMPARISON: 03/26/2023 CLINICAL INDICATION:Female, 82 years old with history of pain; slurred speech, recent falls and recen t brain bleed TECHNIQUE: Brain: Multiple axial CT images of the brain were obtained without IV contrast. Cspine: Axial CT images from the skull base to the inferior aspect of T2 we obtained without intraven ous contrast. Coronal and sagittal reformatted images were also reviewed. FINDINGS: Brain: Extra-axial spaces: Extra-axial fluid collection is heterogenous along the right lateral wall seen on 03/26/2023 has decreased. No measuring up to 9 mm in thickness previously 21 mm in thickness. There is decrease in midline shift on today's exam now measuring 1 to 2 mm, previously up to 6 mm. Ventricular system: Within normal limits Cerebral parenchyma: No acute intraparenchymal hemorrhage or mass effect. The jimenez-white junction is well differentiated. Cerebellum: Unremarkable. Mass effect: No evidence of midline shift. Intracranial vasculature: unremarkable Soft tissues: Sebaceous cyst/calcified granuloma along the left skull. Calvarium/osseous structures: No depressed skull fracture. Craniotomy changes to the right skull. Paranasal sinuses and mastoid air cells: Clear. Visualized orbits: Bilaterally aphakia. Cervical spine: Fracture: None. Osseous structures: Multilevel degenerative disc disease changes with endplate spurring and disc oste ophyte complex's. Vertebral alignment: Within normal limits. Spinal canal/Neural Foramina: No evidence of significant spinal canal narrowing. No evidence for sign ificant neural foraminal stenosis. Neck soft tissues: Prevertebral soft tissues are within normal limits. Other: The airway is patent. Apical scarring in the lung apices. Paraseptal and centrilobular emphyse ma changes are present. Atherosclerosis of the carotid bifurcations. IMPRESSION: 1. Interval decrease in right subdural hemorrhage present on 03/26/2023. The remaining small amount of fluid in the extra-axial space along the right with some areas of higher density suggesting mixed ch ronicity hemorrhage. There is decrease in midline shift seen on prior. 2. No evidence for acute/subacute CVA. The jimenez-white matter junctions appear maintained. 3. No evidence of cervical spine fracture. 4. Moderate multilevel degenerative disc disease.
--- NOTE | 2023-04-23 14:15 | ED ---
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 Per daughter's continues to have intermittent trouble speaking and lightheadedness since her stroke. Per patient, reports that these are unchanged from her usual symptoms. However daughters note that the patient typically takes care of her who has dementia. They are worried that the patient is not able to do so due to her recent stroke however notes that the patient feels that she needs to take care of him even though she is unable to do so and is worried about her safety. Currently, denies any symptoms. Per daughter's currently acting her normal self. Patient denies chest pain or shortness of breath infusion. No other complaints. - Related Data Home Medications Medication Instructions Recorded Confirmed Acetaminophen Tab [Tylenol] 650 mg PO Q4H PRN 03/24/22 03/24/22 Aspirin EC [Ecotrin Low Dose] 81 mg PO DAILY 03/24/22 03/24/22 B,C/Folic/Zinc/Copper Ox/Vit E 1 each PO DAILY 03/24/22 03/24/22 [Stress B-Complex Tablet] Calcium Carbonate [Calcium] 600 mg PO BID 03/24/22 03/24/22 Celecoxib [Celebrex] 400 mg PO DAILY 03/24/22 03/24/22 Meloxicam [Mobic] 15 mg PO DAILY 03/24/22 03/24/22 Multivitamins, Thera [Multivitamin 1 tab PO DAILY 03/24/22 03/24/22 (formulary)] Pravastatin Sodium [Pravachol] 40 mg PO DAILY 03/24/22 03/24/22 Vit C/E/Zn/Coppr/Lutein/Zeaxan 1 each PO DAILY 03/24/22 03/24/22 [Preservision Areds 2 Softgel] atenoloL [Tenormin] 25 mg PO DAILY 03/24/22 03/24/22 clonazePAM [KlonoPIN] 1 mg PO BID 03/24/22 03/24/22 Allergies Allergy/AdvReac Type Severity Reaction Status Date / Time No Known Allergies Allergy Verified 04/23/23 11:13 Review of Systems ROS Statement: Those systems with pertinent positive or pertinent negative responses have been documented in the HPI. ROS Other: All systems not noted in ROS Statement are negative. Past Medical History Past Medical History: Cancer, Diabetes Mellitus, Hyperlipidemia, Hypertension, Osteoarthritis (OA), Thyroid Disorder Additional Past Medical History / Comment(s): macular degeneration. Hx of breast cancer right breast 2005. History of Any Multi-Drug Resistant Organisms: None Reported Past Surgical History: Breast Surgery Additional Past Surgical History / Comment(s): bilat toe surgery? Pneumothorax 50 years ago Past Anesthesia/Blood Transfusion Reactions: No Reported Reaction Past Psychological History: No Psychological Hx Reported Smoking Status: Current every day smoker Past Alcohol Use History: None Reported Past Drug Use History: None Reported General Exam Limitations: no limitations General appearance: alert, in no apparent distress Head exam: Present: atraumatic Eye exam: Present: normal appearance, PERRL, EOMI ENT exam: Present: normal oropharynx, mucous membranes moist Respiratory exam: Present: normal lung sounds bilaterally Cardiovascular Exam: Present: regular rate, normal rhythm GI/Abdominal exam: Present: soft Extremities exam: Present: other (Strength and sensation equal and intact of bilateral upper and lower extremities.) Neurological exam: Present: alert, oriented X3, CN II-XII intact Psychiatric exam: Present: normal affect, normal mood Skin exam: Present: warm, dry Course Vital Signs 04/23/23 04/23/23 04/23/23 11:07 12:00 15:04 Temperature 99.4 F 98.4 F Pulse Rate 61 79 66 Respiratory 18 16 18 Rate Blood Pressure 107/75 110/76 131/75 O2 Sat by Pulse 97 94 L 98 Oximetry Medical Decision Making - Medical Decision Making Was pt. sent in by a medical professional or institution (, PA, PIGMENT PUSHER, urgent care, hospital, or correction...) When possible be specific @ -No Did you speak to anyone other than the patient for history (EMS, parent, family, police, friend...)? What history was obtained from this source @ -Spoke to the patient and her daughters for history. For further details please see HPI. Did you review nursing and triage notes (agree or disagree)? Why? @ -I reviewed and agree with nursing and triage notes Were old charts reviewed (outside hosp., previous admission, EMS record, old EKG, old radiological studies, urgent care reports/EKG's, correction records)? Report findings @ -Old charts reviewed showing SDH with subsequent transfer to [facility]. Differential Diagnosis (chest pain, altered mental status, abdominal pain women, abdominal pain men, vaginal bleeding, weakness, fever, dyspnea, syncope, headache, dizziness, GI bleed, back pain, seizure, CVA, palpatations, mental health, musculoskeletal)? @ -Differential Altered Mental Status: Hypoglycemia, DKA, hypercapnia, ETOH, overdose, CO poisoning, trauma, myxedema coma, HTN encephalopathy, infection, encephalitis, psychosis, intercranial hemorrhage, hepatic encephalopathy, meningitis, CVA, this is not meant to be an all-inclusive list EKG interpreted by me (3pts min.). @ -As above X-rays interpreted by me (1pt min.). @ -None done CT interpreted by me (1pt min.). @ -CT brain and C-spine showed decrease in her right subdural hemorrhage with a small amount of fluid in the extra-axial space along the right with decrease of midline shift. No acute findings U/S interpreted by me (1pt. min.). @ -None done What testing was considered but not performed or refused? (CT, X-rays, U/S, labs)? Why? @ -None What meds were considered but not given or refused? Why? @ -None Did you discuss the management of the patient with other professionals (professionals i.e. , PA, PIGMENT PUSHER, lab, RT, psych nurse, social work lecturer, core rescuer, teacher, child support officer, business case analyst)? Give summary @ -No Was smoking cessation discussed for >3mins.? @ -No Was critical care preformed (if so, how long)? @ -No Were there social determinants of health that impacted care today? How? (Homelessness, low income, unemployed, alcoholism, drug addiction, t ransportation, low edu. Level, literacy, decrease access to med. care, custodial, rehab)? @ -No Was there de-escalation of care discussed even if they declined (Discuss DNR or withdrawal of care, Hospice)? DNR status @ -No What co-morbidities impacted this encounter? (DM, HTN, Smoking, COPD, CAD, Cancer, CVA, ARF, Chemo, Hep., AIDS, mental health diagnosis, sleep apnea, morbid obesity)? @ -CVA Was patient admitted / discharged? Hospital course, mention meds given and route, prescriptions, significant lab abnormalities, going to OR and other pertinent info. @ -Admission. CT brain shows improvement of SDH without acute findings. CBC unremarkable. Chemistry shows slight hypokalemia at 3.3 which was repleted, BUN 20 at baseline. Patient will be admitted to observation with consults to PT, social work lecturer, and neurology. At this time urine pending. Discussed plan of care with patient and family who are in agreement. Undiagnosed new problem with uncertain prognosis? @ -No Drug Therapy requiring intensive monitoring for toxicity (Heparin, Nitro, Insulin, Cardizem)? @ -No Were any procedures done? @ -No Diagnosis/symptom? @ -S/p SDH, hypokalemia Acute, or Chronic, or Acute on Chronic? @ -Acute Uncomplicated (without systemic symptoms) or Complicated (systemic symptoms)? @ -Uncomplicated Side effects of treatment? @ -No Exacerbation, Progression, or Severe Exacerbation? @ -No Poses a threat to life or bodily function? How? (Chest pain, USA, KS, pneumonia, PE, COPD, DKA, ARF, appy, cholecystitis, CVA, Diverticulitis, Homicidal, S uicidal, threat to staff... and all critical care pts) @ -No - Lab Data Result diagrams: 04/23/23 11:53 04/23/23 11:53 Lab Results 04/23/23 04/23/23 04/23/23 Range/Units 11:53 11:53 11:53 WBC 5.6 (3.8-10.6) k/uL RBC 4.35 (3.80-5.40) m/uL Hgb 14.5 (11.4-16.0) gm/dL Hct 42.3 (34.0-46.0) % MCV 97.1 (80.0-100.0) fL MCH 33.3 (25.0-35.0) pg MCHC 34.3 (31.0-37.0) g/dL RDW 13.1 (11.5-15.5) % Plt Count 233 (150-450) k/uL MPV 7.6 Neutrophils % 80 % Lymphocytes % 9 % Monocytes % 8 % Eosinophils % 1 % Basophils % 0 % Neutrophils # 4.5 (1.3-7.7) k/uL Lymphocytes # 0.5 L (1.0-4.8) k/uL Monocytes # 0.5 (0-1.0) k/uL Eosinophils # 0.0 (0-0.7) k/uL Basophils # 0.0 (0-0.2) k/uL PT 10.7 (9.0-12.0) sec INR 1.0 (<1.2) APTT 22.3 (22.0-30.0) sec Sodium 135 L (137-145) mmol/L Potassium 3.3 L (3.5-5.1) mmol/L Chloride 100 (98-107) mmol/L Carbon Dioxide 25 (22-30) mmol/L Anion Gap 10 mmol/L BUN 19 H (7-17) mg/dL Creatinine 0.82 (0.52-1.04) mg/dL Est GFR (CKD-EPI)AfAm 78 (>60 ml/min/1.73 sqM) Est GFR (CKD-EPI)NonAf 68 (>60 ml/min/1.73 sqM) Glucose 121 H (74-99) mg/dL Calcium 10.2 (8.4-10.2) mg/dL Total Bilirubin 0.7 (0.2-1.3) mg/dL AST 32 (14-36) U/L ALT 19 (4-34) U/L Alkaline Phosphatase 77 (38-126) U/L Troponin I (0.000-0.034) ng/mL Total Protein 8.0 (6.3-8.2) g/dL Albumin 3.8 (3.5-5.0) g/dL 04/23/23 Range/Units 11:53 WBC (3.8-10.6) k/uL RBC (3.80-5.40) m/uL Hgb (11.4-16.0) gm/dL Hct (34.0-46.0) % MCV (80.0-100.0) fL MCH (25.0-35.0) pg MCHC (31.0-37.0) g/dL RDW (11.5-15.5) % Plt Count (150-450) k/uL MPV Neutrophils % % Lymphocytes % % Monocytes % % Eosinophils % % Basophils % % Neutrophils # (1.3-7.7) k/uL Lymphocytes # (1.0-4.8) k/uL Monocytes # (0-1.0) k/uL Eosinophils # (0-0.7) k/uL Basophils # (0-0.2) k/uL PT (9.0-12.0) sec INR (<1.2) APTT (22.0-30.0) sec Sodium (137-145) mmol/L Potassium (3.5-5.1) mmol/L Chloride (98-107) mmol/L Carbon Dioxide (22-30) mmol/L Anion Gap mmol/L BUN (7-17) mg/dL Creatinine (0.52-1.04) mg/dL Est GFR (CKD-EPI)AfAm (>60 ml/min/1.73 sqM) Est GFR (CKD-EPI)NonAf (>60 ml/min/1.73 sqM) Glucose (74-99) mg/dL Calcium (8.4-10.2) mg/dL Total Bilirubin (0.2-1.3) mg/dL AST (14-36) U/L ALT (4-34) U/L Alkaline Phosphatase (38-126) U/L Troponin I <0.012 (0.000-0.034) ng/mL Total Protein (6.3-8.2) g/dL Albumin (3.5-5.0) g/dL - EKG Data EKG Comments: EKG shows a sinus rhythm with occasional PVCs at [address] or T- wave changes. KS 138, QRS 90, QT/QTC 395/433. Disposition Clinical Impression: Subdural hematoma Disposition: ADMITTED IP TO THIS [facility] Condition: Good Referrals: Symone Pisano MD [Primary Care Provider] - 1-2 days Time of Disposition: 14:45
[2023-04-23] MEDS ORDERED: NALOXONE 0.4 MG/ML 1 ML VIAL IV PRN (15:20)
[2023-04-23] MEDS ORDERED: ONDANSETRON 4 MG/2 ML VIAL IVP PRN (15:20)
[2023-04-23] MEDS ORDERED: ACETAMINOPHEN TAB 325 MG TAB PO PRN (15:20)
[2023-04-23] MEDS ORDERED: HYDROmorphone 1 MG/ML 1 ML SYRINGE IVP PRN (15:20)
[2023-04-23] MEDS ORDERED: POTASSIUM CHLORIDE ER 20 MEQ TAB.ER PO STA (15:31)
[2023-04-23 15:39] LABS: Glucose,Whole Blood 88 mg/dL (70-110)
[2023-04-23 15:44] LABS: Bilirubin,Urine Negative (Negative); Color,Urine Yellow; Glucose,Urine (UA) Negative (Negative); Ketones,Urine Negative (Negative); Protein,Urine Negative (Negative); Specific Gravity,Urine 1.015 (1.001-1.035)
[2023-04-23 15:45] LABS: Blood,Urine Negative (Negative); Leukocyte Esterase,Urine Moderate (Negative); Nitrite,Urine Negative (Negative); Urobilinogen,Urine <2.0 mg/dL (<2.0)
[2023-04-23 15:49] LABS: Appearance,Urine Slightly Cloudy (Clear)
[2023-04-23 16:31] LABS: Bacteria,Urine Few /hpf; Squamous Epithelial Cell,Urine 2 /hpf (0-4); WBC,Urine 20 /hpf (0-5)
[2023-04-23 16:58] LABS: Glucose,Whole Blood 73 mg/dL (70-110)
--- NOTE | 2023-04-23 17:30 | CT ---
EXAMINATION TYPE: CT brain wo con CT DLP: 1099.4 mGycm, Automated exposure control for dose reduction was used. DATE OF EXAM: 04/23/2023 5:18 PM COMPARISON: CT brain C-spine 04/23/2023, CT brain 03/26/2023 CLINICAL INDICATION:Female, 82 years old with history of expressive aphasia, expressive aphasia TECHNIQUE: Brain: Multiple axial CT images of the brain were obtained without IV contrast. Coronal and sagittal reformats reviewed. FINDINGS: Brain: Extra-axial spaces: Trace pneumocephalus redemonstrated demonstrated. No stomach and change in extra- axial fluid collection along the right cerebral convexity with heterogenous attenuation with a maximu m thickness of 8 mm. Ventricular system: Within normal limits Cerebral parenchyma: Cerebral atrophy. No acute intraparenchymal hemorrhage or mass effect. The jimenez -white junction is well differentiated. Scattered hypoattenuating areas are seen within the white mat ter. Cerebellum: Unremarkable. Mass effect: Stable 1 mm midline shift to the left. Intracranial vasculature: Atherosclerotic calcifications of the intracranial vessels. Soft tissues: Sebaceous cyst/counseling granuloma along the left posterior parietal soft tissues. Calvarium/osseous structures: No depressed skull fracture. Benign hyperostosis frontalis noted. Right parietal craniotomy maribell holes redemonstrated. Paranasal sinuses and mastoid air cells: Clear Visualized orbits: Bilateral aphakia IMPRESSION: 1. Overall stable examination from earlier today with similar right subdural hematoma and 1 mm of mi dline shift to the right and trace pneumocephalus status post maribell holes. 2. No evidence for acute/subacute CVA. 3. Nonspecific white matter changes likely related to small vessel ischemic disease.
--- NOTE | 2023-04-23 18:16 | CT ---
EXAMINATION TYPE: CT angio head neck CT DLP: 469.9 mGycm, Automated exposure control for dose reduction was used. DATE OF EXAM: 04/23/2023 5:44 PM COMPARISON: CT brain 04/23/2023, CT brain C-spine 04/23/2023, CT brain 03/26/2023, CTA head neck 03/26/2023 , PET/CT 07/13/2021 CLINICAL INDICATION:Female, 82 years old with history of expressive aphasia; PHH, expressive aphasia TECHNIQUE: Axially acquired helical CT angiogram of the head and neck was obtained with contrast util izing 65 cc of Isovue-370 administered intravenously. Axial images are supplemented with 3D reconstru ctions which were post-processed at an independent workstation. NASCET criteria used. FINDINGS: Please refer to dedicated CT brain of the same day for findings. CTA HEAD: The visualized portions of the internal carotid arteries, middle cerebral arteries, anterior cerebral arteries, and diminutive posterior cerebral arteries are patent. Left MCA M2 segment fusiform aneury sm measuring up to 3.6 mm (series 406, image 34). No significant change from prior exam. The basilar and vertebral arteries are patent. Dominant left vertebral artery. CTA NECK: Right Carotid System: The common carotid artery and external carotid artery are patent. Mild atherosclerotic plaque at the right bulb without hemodynamic significant stenosis. The remaining portions of the internal carotid a rtery demonstrate normal size without significant narrowing. Left Carotid System: The common carotid artery and external carotid artery are patent. Mild atelectatic plaque at the iniguez tid bifurcation with less than 50% stenosis. The remaining portions of the internal carotid artery de monstrate normal size without significant narrowing. Vertebral arteries are patent without evidence hemodynamically significant stenosis. There is a three-vessel aortic arch. The origins of the great vessels are patent. Moderate stenosis a t the origin of the right subclavian artery secondary to calcified plaque. Centrilobular emphysematous changes. Biapical pleural-parenchymal scarring redemonstrated with previo usly questioned right apical masslike region being stable from prior PET/CT with no FDG activity and consistent with scarring. IMPRESSION: 1. No evidence of dissection of the cervical internal carotid arteries or vertebral arteries. Less th an 50% stenosis of the origin of the left internal carotid artery secondary to calcified plaque. No h emodynamically stenosis of the right internal carotid artery. 2. No evidence of high-grade intracranial stenosis. 3. 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 4. 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
[2023-04-23] MEDS: SODIUM CHLORIDE 0.9% 1,000 ML IV SCH (18:21)
[2023-04-23 18:36] LABS: Glucose,Whole Blood 71 mg/dL (70-110)
[2023-04-23] MEDS ORDERED: levETIRAcetam IV 500 MG/5 ML VIAL IVP STA (19:06)
[2023-04-23 21:22] LABS: Glucose,Whole Blood 123 mg/dL (70-110)
[2023-04-23] MEDS: NICOTINE 21MG/24HR PATCH TRANSDERM SCH (21:36)
[2023-04-23] MEDS: HYDROmorphone 0.5 MG/0.5 ML SYRINGE IVP PRN (22:43)
[2023-04-24] MEDS: SODIUM CHLORIDE 0.9% 1,000 ML IV SCH ×2 (05:03→21:34)
[2023-04-24] MEDS: NICOTINE 21MG/24HR PATCH TRANSDERM SCH ×2 (08:22→20:17)
[2023-04-24] MEDS ORDERED: HYDROcodone/APAP 5-325MG 1 EACH TAB PO PRN (10:34)
--- NOTE | 2023-04-24 11:42 | P.CNNES ---
History of Present Illness Consult date: 04/24/23 Requesting physician: Sivakumar Madden Reason for Consult: s/p SDH History of Present Illness: This is an 82-year-old woman with recent subdural hemorrhage over the right hemisphere status post maribell hole in the beginning of February 2023, ex tobacco use who presented emergency department because of repeated speech difficulty. Patient's daughters are at bedside Y also help with the history. It seems that the patient had a recent multiple falls in the beginning of March 2023. Patient stated that she was in the beginning of March 2023 and she she felt her gait has been unsteady and her gait being unsteady has been going on for some time and a result she fell. She had further falls after that as a result she isn't sure f acility on 03/26/[address] of the head which showed the right subdural hemorrhage with midline shift of 6 mm and as a result she was transferred to [facility] and she had evacuation of her bleed. According to the daughter works there will recall that she had MRI and was told to follow-up with the stroke attending as an outpatient for further investigation. She was discharged to rehab and then she was discharged home. She has been home for the last 2 weeks and according to her daughter's she has episodes where she's trying to talk but cannot get her words out and there is only sound and she looks dazed. No shaking of any extremities or foaming around the mouth. And after the episode she is completely tired. She had multiple episodes like this in the last 2 weeks. Patient resides with her as well as dementia and she takes care of him. Prior to the bleed in the beginning of March 2023 she was on low-dose aspirin but she has a not been on any antiplatelets or anticoagulation. She has stopped smoking in the beginning of March 2023. Then she feels her gait is unsteady and the patient feels her right leg is weaker than the left again is been going on recently but unsure and possibly few month. He stated that she was seen by her felled seam operator chainstitch Dr. Wagner and was notified by him that she need to stop smoking or amputation of extremity will occur according to the daughter especially since she had the dark coloration of her right lower extremity and has stopped with the stopping smoking. She denies any history of ischemic stroke to her knowledge and denies being on any anticoagulation. Denies any history of seizure. Denies being on any antiepileptic drug prior to this. Patient denies of any headache currently. Denies of any numbness. Denies of any neck pain. She states she has old sciatica in the past. Some of the workup during this hospital visit consisted of: CT of the head and CT cervical spine is reported as interval decrease in the right subdural hemorrhage present on 03/26/2023. The remaining small amount of fluid in the extra-axial space along the right with some area of high density suggest mixed chronicity hemorrhage. There is decrease in midline shift as seen on prior. No evidence for acute/subacute CVA. The ijmenez-white matter junction appears maintained. No evidence of cervical spine fracture. Moderate the multilevel degenerative disc disease. Repeat CT of the head on 04/23/2023 as reported as overall stable examination from earlier today was similar right subdural hematoma and 1 mm midline shift to the right and trace pneumocephalus status post maribell hole. No evidence of acute/subacute CVA. Nonspecific white matter changes likely related to small vessel ischemic disease. CT angiography of the head and neck was reported as no evidence of dissection of the cervical internal carotid artery or vertebral artery. Less than 50% of the origin of the left internal carotid artery segment to calcified plaque. No hemodynamically stenosis of the right internal carotid artery. No evidence of high-grade intracranial stenosis. 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 Dr. Herron (neurologist) was called about her overnight and she felt possible seizure and ordered bolus Keppra 500mg and ordered EEG Review of Systems Review of system: The 12 point system was reviewed and apparent positive and negative per HPI. Past Medical History Past Medical History: Cancer, Diabetes Mellitus, Hyperlipidemia, Hypertension, Osteoarthritis (OA), Thyroid Disorder Additional Past Medical History / Comment(s): macular degeneration. Hx of breast cancer right breast 2005. History of Any Multi-Drug Resistant Organisms: None Reported Past Surgical History: Breast Surgery Additional Past Surgical History / Comment(s): bilat toe surgery? Pneumothorax 50 years ago Past Anesthesia/Blood Transfusion Reactions: No Reported Reaction Past Psychological History: No Psychological Hx Reported Smoking Status: Current every day smoker Past Alcohol Use History: None Reported Past Drug Use History: None Reported Medications and Allergies Home Medications Medication Instructions Recorded Confirmed Type Calcium Carbonate [Calcium] 600 mg PO DAILY 03/24/22 04/23/23 History Pravastatin Sodium [Pravachol] 40 mg PO HS 03/24/22 04/23/23 History Vit C/E/Zn/Coppr/Lutein/Zeaxan 1 cap PO BID 03/24/22 04/23/23 History [Preservision Areds 2 Softgel] clonazePAM [KlonoPIN] 1 mg PO BID 03/24/22 04/23/23 History Acetaminophen Tab [Tylenol Tab] 500 - 1,000 mg PO Q6HR PRN 04/23/23 04/23/23 History Cranberry Fruit Extract [Cranberry] 500 mg PO DAILY 04/23/23 04/23/23 History Dapagliflozin Propanediol [Farxiga] 5 mg PO DAILY 04/23/23 04/23/23 History Docusate [Colace] 100 mg PO BID 04/23/23 04/23/23 History HYDROcodone/APAP 5-325MG [[place] 1 tab PO Q4HR PRN 04/23/23 04/23/23 History 5-325] Nicotine 21Mg/24Hr Patch [Habitrol] 1 patch TRANSDERM HS 04/23/23 04/23/23 History Cascade-3 Fatty Acids [Cascade-3] 1,000 mg PO DAILY 04/23/23 04/23/23 History Triamterene-Hctz 37.5-25Mg 1 tab PO DAILY 04/23/23 04/23/23 History [Maxzide 37.5-25] Umeclidinium [place] [Incruse 1 puff INHALATION RT-DAILY 04/23/23 04/23/23 History Ellipta] levETIRAcetam [Keppra] 500 mg PO Q12H 04/23/23 04/23/23 History Allergies Allergy/AdvReac Type Severity Reaction Status Date / Time No Known Allergies Allergy Verified 04/23/23 19:22 Physical Examination - Vital Signs Vital Signs: Vital Signs Temp Pulse Resp BP Pulse Ox 04/24/23 10:00 98.3 F 70 18 117/67 97 04/24/23 07:22 58 L 19 133/90 94 L 04/24/23 03:26 62 20 112/61 04/24/23 00:49 61 16 113/69 92 L 04/23/23 20:49 65 18 121/69 93 L 04/23/23 19:45 69 18 138/92 04/23/23 18:59 98.7 F 67 18 120/69 98 04/23/23 18:30 73 20 124/83 96 04/23/23 18:28 66 18 143/92 96 04/23/23 16:55 151/85 98 04/23/23 16:48 75 130/100 96 04/23/23 15:04 98.4 F 66 18 131/75 98 04/23/23 12:00 79 16 110/76 94 L GENERAL: The patient is lying in bed and is not in acute distress. CHEST: The heart rate is regular rate rhythm. No murmurs to auscultation. . NEUROLOGICAL: Higher mental function: The patient is awake, alert, oriented to self, place and time. She was able to name the current states, city able to identify objects as as pen and watch. She switched the names of her 2 daughters that were in the room. Patient is following simple commands. No aphasia and no neglect. Cranial nerves: The pupils are round, equal and reactive to light and accommodation. Visual gary are full to confrontation throughout. Extraocular movement is intact no nystagmus is noted. Facial sensation is normal to touch throughout. The facial strength is normal throughout. Hearing is mildly dec reased bilaterally to hand rub. Tongue is midline and moved [id number] without any difficulty. No dysarthria is noted. Shoulder shrug is normal bilaterally. Motor: The strength is left lower extremity is 4+. Otherwise 5 over 5 throughout. Normal tone and bulk. Cerebellum: Normal finger to nose bilaterally. Sensation: Decrease Sensation to touch over the left upper and lower. Reflexes (right/left): 2+ throughout except ankles are 1+ Plantars are mute bilaterally. Results - Laboratory Findings CBC and BMP: 04/23/23 11:53 04/24/23 18:07 Abnormal Lab Findings: Abnormal Labs 04/23/23 04/23/23 04/23/23 11:53 11:53 14:33 Lymphocytes # 0.5 L Sodium 135 L Potassium 3.3 L BUN 19 H Glucose 121 H POC Glucose (mg/dL) Urine Appearance Slightly Cloudy H Urine WBC 20 H Urine Bacteria Few H 07/30/23 21:19 Lymphocytes # Sodium Potassium BUN Glucose POC Glucose (mg/dL) 123 H Urine Appearance Urine WBC Urine Bacteria Assessment and Plan Assessment: This is an 82-year-old woman who had recurrent falls in the beginning of March 2023 at present our facility in 03/26/2023 initially and had a significant right subdural and was transferred to [place] for evacuation then eventually she was discharged home for the past 2 weeks while she was a home she had difficulty getting her words out with blank stares lasting for about 5 minutes then was sleepy and tired after the episode. Repeated episode of speech difficulty with blank stares probably new onset seizure especially the with her recent subdural possibly irritating the brain. Left lower extremity weakness with numbness rule out any acute or subacute ischemia or an any mass. Recent history of right hemispheric subdural due to falls status post maribell hole at [place] on 03/26/2023. Unsure exactly cause of the patient repeated falls if was the due to her peripheral vascular disease or she had a stroke or other causes. 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 peripheral vascular disease. Tobacco use and stopped beginning of March 2023 Plan: Patient was given Keppra 500 mg once. It seems because of a bleed she was discharged on Keppra 500 mg every [address] Herron recommended Keppra level. I increased the Keppra from 500 to 1000mg every 12 hours. An EEG is ordered pending I ordered MRI Brain w/ and w/o. Avoid antiplatelets because of a recent subdural and the risk outweighed the benefit for now Every 4 hours neuro checks Seizure precaution Seizure pads PT is consulted and I also consulted OT for gait training. I ordered TSH, vitamin B-12, folate, hemoglobin A1c. 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 Morales) as outpatient for surveillance and any intervention if needed. Recommend normotensive blood pressure and will defer management to primary team. For DVT prophylaxis use SCDs Plan was discussed with the patient's 2 daughters were at bedside as well as the patient Thank you for the consultation Time with Patient: Greater than 30
[2023-04-24] MEDS ORDERED: levETIRAcetam 500 MG TAB PO SCH (11:45)
[2023-04-24] MEDS: IPRATROPIUM 0.5 MG/2.5 ML NEBU INHALATION SCH ×3 (13:30→20:04)
[2023-04-24 18:32] LABS: African American GFR (CKD) >90 (>60 ml/min/1.73 sqM); Anion Gap 7 mmol/L; Blood Urea Nitrogen 11 mg/dL (7-17); Carbon Dioxide 24 mmol/L (22-30); Chloride 107 mmol/L (98-107); Glucose 106 mg/dL (74-99); Non-African American GFR(CKD) 87 (>60 ml/min/1.73 sqM); Potassium 4.1 mmol/L (3.5-5.1); Sodium 138 mmol/L (137-145)
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
[2023-04-24] MEDS: clonazePAM 1 MG TAB PO SCH (20:17)
[2023-04-24] MEDS: PRAVASTATIN SODIUM 40 MG TAB PO SCH (20:17)
[2023-04-24] MEDS: levETIRAcetam 500 MG TAB PO SCH (20:17)
[2023-04-24] MEDS: DOCUSATE 100 MG CAP PO SCH (20:17)
--- NOTE | 2023-04-24 20:43 | EEG ---
ELECTROENCEPHALOGRAM REPORT CLINICAL HISTORY: This is an 82-year-old woman with history of recent right subdural, status post maribell hole, who has recurrent speech difficulty and blank stares. The video EEG is obtained to evaluate for seizure epileptiform activity. RELEVANT MEDICATION: Keppra. EEG TYPE: A routine 21-channel EEG is performed with video using the 10/20 electrode placement system. DESCRIPTION: Wakefulness is only obtained. The background consists of [id number] voltage of 8 to 8.5 hertz activity. There is no physiological stage 2 sleep architecture. There is no focal slowing. Interictal and ictal is none. ACTIVATION PROCEDURE: Photic stimulation did not evoke a posterior driving response. There is no abnormality during the photic stimulation. Hyperventilation is not performed. CLINICAL INTERPRETATION: This is a normal routine EEG. There is no focal slowing, epileptiform discharge, or seizure on the EEG. A normal routine EEG does not rule out underlying epilepsy. Clinical correlation is recommended. MMATILIO / MARYELLENN: [id number] / [email or web address]
[2023-04-24] MEDS: HYDROmorphone 0.5 MG/0.5 ML SYRINGE IVP PRN (21:35)
[2023-04-24] MEDS: VIT A,C & E-LUTEIN-MINERALS 1 EACH TAB PO SCH (23:27)
[2023-04-25] MEDS: SODIUM CHLORIDE 0.9% 1,000 ML IV SCH ×2 (05:42→20:22)
[2023-04-25 06:07] LABS: Glucose,Whole Blood 92 mg/dL (70-110)
[2023-04-25] MEDS: IPRATROPIUM 0.5 MG/2.5 ML NEBU INHALATION SCH ×4 (08:07→19:56)
[2023-04-25 08:11] LABS: ALT 15 U/L (4-34); AST 32 U/L (14-36); African American GFR (CKD) >90 (>60 ml/min/1.73 sqM); Albumin 3.1 g/dL (3.5-5.0); Alkaline Phosphatase 59 U/L (38-126); Anion Gap 11 mmol/L; Blood Urea Nitrogen 14 mg/dL (7-17); Calcium 8.8 mg/dL (8.4-10.2); Carbon Dioxide 21 mmol/L (22-30); Chloride 105 mmol/L (98-107); Glucose 92 mg/dL (74-99); Non-African American GFR(CKD) 81 (>60 ml/min/1.73 sqM); Potassium 3.5 mmol/L (3.5-5.1); Sodium 137 mmol/L (137-145); Total Bilirubin 0.5 mg/dL (0.2-1.3); Total Protein 6.7 g/dL (6.3-8.2)
[2023-04-25 08:26] LABS: Basophils % (A) 0 %; Eosinophils # (A) 0.1 k/uL (0-0.7); Eosinophils % (A) 1 %; HCT 43.5 % (34.0-46.0); HGB 13.9 gm/dL (11.4-16.0); Hypochromasia Slight; Lymphocytes # (A) 0.4 k/uL (1.0-4.8); Lymphocytes % (A) 9 %; MCH 32.8 pg (25.0-35.0); MCHC 32.1 g/dL (31.0-37.0); Macrocytosis Slight; Mean Platelet Volume 7.7; Monocytes # (A) 0.4 k/uL (0-1.0); Monocytes % (A) 9 %; Neutrophils # (A) 3.8 k/uL (1.3-7.7); Neutrophils % (A) 79 %; Platelet Count 193 k/uL (150-450); RBC 4.25 m/uL (3.80-5.40); RDW 13.1 % (11.5-15.5); WBC 4.9 k/uL (3.8-10.6)
[2023-04-25 08:29] LABS: MCV 102.3 fL (80.0-100.0)
[2023-04-25] MEDS: atenoloL 25 MG TAB PO SCH (09:16)
[2023-04-25] MEDS: DAPAGLIFLOZIN PROPANEDIOL 5 MG TABLET PO SCH (09:16)
[2023-04-25] MEDS: levETIRAcetam 500 MG TAB PO SCH ×2 (09:17→20:21)
[2023-04-25] MEDS: VIT A,C & E-LUTEIN-MINERALS 1 EACH TAB PO SCH ×2 (09:17→20:21)
[2023-04-25] MEDS: DOCUSATE 100 MG CAP PO SCH ×2 (09:17→20:21)
[2023-04-25] MEDS: clonazePAM 1 MG TAB PO SCH ×2 (09:17→20:21)
[2023-04-25] MEDS: CALCIUM CARBONATE 500 MG CHEWABLE PO SCH (09:17)
[2023-04-25] MEDS: TRIAMTERENE-HCTZ 37.5-25MG 1 EACH TAB PO SCH (09:17)
[2023-04-25 11:39] LABS: Glucose,Whole Blood 112 mg/dL (70-110)
--- NOTE | 2023-04-25 13:03 | CA ---
Transthoracic Echo Report Name: Christy Dhaliwal Age: 82 Gender: F : 1940 Exam Date: 04/25/2023 08:28 Exam Location: [facility] Ht (in): 66 Wt (lb): 141 Ordering Physician: Elpidio Barnett MD Attending/Referring Phys: Plate Cutter Alla Uribe RDCS Procedure CPT: Indications: stroke Cardiac Hx: Technical Quality: Fair Contrast 1: Total Dose (mL): Contrast 2: Total Dose (mL): MEASUREMENTS (Male / Female) Normal Values 2D ECHO LV Diastolic Diameter PLAX 3.0 cm 4.2 - 5.9 / 3.9 - 5.3 cm LV Systolic Diameter PLAX 1.9 cm IVS Diastolic Thickness 1.3 cm 0.6 - 1.0 / 0.6 - 0.9 cm LVPW Diastolic Thickness 1.3 cm 0.6 - 1.0 / 0.6 - 0.9 cm LV Relative Wall Thickness 0.9 RV Internal Dim ED PLAX 2.9 cm LA Systolic Diameter LX 3.0 cm 3.0 - 4.0 / 2.7 - 3.8 cm LV Diastolic Volume MOD 4C 26.5 cm??? LV Systolic Volume MOD 4C 10.4 cm??? LV Ejection Fraction MOD 4C 60.8 % LV Cardiac Index MOD 4C 718.9 cm???/min???m??? LV Diastolic Length 4C 6.6 cm LV Systolic Length 4C 6.4 cm LV Diastolic Volume MOD 2C 62.7 cm??? LV Systolic Volume MOD 2C 19.1 cm??? LV Ejection Fraction MOD 2C 69.6 % LV Cardiac Index MOD 2C 1943.8 cm???/min???m??? LV Diastolic Length 2C 7.7 cm LV Systolic Length 2C 6.6 cm LA Volume 28.3 cm??? 18 - 58 / 22 - 52 cm??? M-MODE Aortic Root Diameter MM 3.3 cm MV E Point Septal Separation 0.3 cm AV Cusp Separation MM 1.9 cm DOPPLER AV Peak Velocity 143.1 cm/s AV Peak Gradient 8.2 mmHg MV Area PHT 2.4 cm??? Mitral E Point Velocity 80.4 cm/s Mitral A Point Velocity 83.1 cm/s Mitral E to A Ratio 1.0 MV Deceleration Time 316.2 ms FINDINGS Left Ventricle Left ventricular ejection fraction is estimated at 60-65 %. Small left ventricular cavity. Mildly increased septal wall thickness. Moderately increased posterior wall thickness. Right Ventricle Normal right ventricular size and function. Unable to estimate the right ventricular systolic pressure. Right Atrium Normal right atrial size. Left Atrium Normal left atrial size. Mitral Valve Structurally normal mitral valve. No mitral stenosis, regurgitation or prolapse. Aortic Valve Trileaflet aortic valve. No aortic valve stenosis or regurgitation. Tricuspid Valve Structurally normal tricuspid valve. No tricuspid regurgitation. Pulmonic Valve Structurally normal pulmonic valve. No pulmonic regurgitation. Pericardium Normal pericardium. No pericardial effusion. Aorta Normal size aortic root and proximal ascending aorta. CONCLUSIONS Left ventricular ejection fraction 60-65% Mild increased left ventricular wall thickness No mitral regurgitation No pericardial effusion Previewed by: Dr. Dre Jimenez DO (Electronically Signed) Final Date: 25 April 2023 13:01
--- NOTE | 2023-04-25 13:26 | P.PN ---
Subjective Progress Note Date: 04/25/23 HISTORY OF PRESENT ILLNESS: this is an 82-year-old female with a previous medical history signi ficant for hypertension and hypertensive cardio vascular disease, hyperlipidemia, diabetes mellitus type 2, osteoarthritis, history of chronic tobacco use and dependence, PAD, has been under the care of Dr. 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, history of right hemispheric subdural hematoma after a fall back in 03/26/2023 for which she was transferred to [facility] [place] she was seen and evaluated by neurosurgery underwent maribell hole evacuation, and the patient was discharged to subacute rehabilitation at [facility] on the [place] she was left there and she has been home for about a week or so, patient apparently has been having issues with finding the words starting on Monday night and on Monday night developed to have a significant slurred speech and she could not find the right words, patient has been complaining minimal weakness in the left lower extremity, patient has been having issues with falls prior to her subdural hematoma, [facility] for evaluation of slurred speech, had a computed tomography scan of the brain that did show evidence of improvement of the subdural hematoma and midline shift, she did have a CT angiography of the carotid and the brain that showed moderate plaque formation in the carotid artery less than 50% with left middle cerebral artery and to segment 3.6 mm stable aneurysm, patient was evaluated by neurology she was started on Keppra 500 mg that was increased to thousand grams orally twice every day, patient was seen in consultation by neurology today, and he was recommended for the patient to stay on Keppra 1000 g orally twice every day, MRI of the brain with and without gadolinium was obtained, recommended no antiplatelet agents at this time, due to the risks outweigh benefits, physical therapy evaluation, seizure precautions, high school social studies tutor consultation for discharge planning. 04/25: Patient is seen today in follow-up. She has been seen by neurology and tez lemons for MRI of the brain sometime today. Other studies completed including EEG which was normal. Echocardiogram revealed EF of 60-65%, mild increased left and really wall thickness, no mitral regurgitation, no pericardial effusion. Keppra has been increased from 500-1000 mg every 12 hours. Patient has had no seizure activity noted by staff. Her heart rate is in the 60s to 80s, blood pressure 132/83, pulse ox 95% on room air. REVIEW OF SYSTEMS: Constitutional: No documented fever, no chills, no night sweats. No weight change. No weakness, fatigue or lethargy. No daytime sleepiness. HEENT: No headache. No blurred vision or double vision, no loss of vision. No loss of Hearing, no ringing in the ears, no dizziness. No nasal drainage or congestion. No epistaxis. No sore throat. Lungs: No shortness of breath, no cough, no sputum production. No wheezing. Reports dyspnea with activity. Cardiovascular: No chest pain, no lower extremity edema. No palpitations. No paroxysmal nocturnal dyspnea. No orthopnea. No lightheadedness or dizziness. No syncopal episodes. Abdominal: Reports no abdominal pain. No nausea, vomiting. No diarrhea. No constipation. No bloody or tarry stools reports loss of appetite. Genitourinary: No dysuria, increased frequency, urgency. No urinary retention. Musculoskeletal: No myalgias. No muscle weakness, no gait dysfunction, no frequ ent falls. No back pain. No neck pain. Integumentary: No wounds, no lesions. No rash or pruritus. No unusual bruising. No change in hair or nails. Neurologic: No aphasia. No facial droop. No change in mentation. No head injury. No headache. No paralysis. No paresthesia. Psychiatric: No depression. No anxiety. No mood swings. Endocrine: No abnormal blood sugars. No weight change. We'll PHYSICAL EXAMINATION: General: 82-year-old female laying down in bed in no apparent distre ss. HEENT: Head is atraumatic, normocephalic, pupils were equal round reactive to light and recommendation, extraocular muscle movement were intact, sclera nonicteric, conjunctivae were pale, mucous membranes of the mouth are somewhat dry. Neck: Supple, no JVP, normal carotid upstroke bilaterally, no lymphadenopathy. Chest: Decreased breath sounds at the bases, few rhonchi, no expiratory wheezes, no chest wall tenderness, no intercostal retractions. Heart: First heart sound is normal, second heart sounds normal there is systolic ejection murmur 2/6 located in the left sternal border. Abdomen: Soft, nontender, nondistended, positive bowel sounds. Extremities: There is no edema no calf tenderness DP +1 bilaterally. Neurologic examination: Patient is awake alert and oriented X 3, cranial nerves II-12 appear grossly intact, muscle power were 5 out of 5 in upper extremities and 5 out of 5 in bilateral lower extremities, deep tendon reflexes normal bilaterally. ASSESSMENT AND PLAN: 1. TIA rule out acute CVA. Rule out seizure. 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 Also computed tomography scan did show an improvement of the subdural hematoma as well as the midline shift. EEG did not reveal seizure activity. 2. Hypertension and hypertensive cardiovascular disease.continue patient on triamterene 37.5/25 mg orally once every day continue atenolol 25 mg orally once every day, monitor the patient blood pressure very closely . 3. Hyperlipidemia. Continue patient on pravastatin 40 mg at bedtime, monitor the patient lipid panel, keep LDL 55-70. 4. diabetes mellitus type 2. Continue Farxiga 5 mg orally once every day . 5. anxiety disorder. Continue Klonopin 1 mg orally twice every day. 6. Osteoarthritis. Continue Tylenol as needed. 7. Recurrent falls . Physical therapy evaluation. 8. DVT prophylaxis. Bilateral knee-high CANDIDO hose. 9. Macular degeneration. Stable. 10. admit to inpatient. Estimated length of stay 2 midnights per he 11. Full code. Impression and plan of care have been directed as dictated by the signing physician. Yolis Gibbs nurse practitioner acting as scribe for signing physician. Objective - Vital Signs Vital signs: Vital Signs Temp 98.3 F 04/25/23 09:00 Pulse 64 04/25/23 11:43 Resp 18 04/25/23 09:00 BP 132/83 04/25/23 09:00 Pulse Ox 95 04/25/23 09:00 FiO2 Intake & Output 04/24/23 04/25/23 04/25/23 18:59 06:59 18:59 Intake Total 325 240 180 Output Total 300 Balance 25 240 180 Weight 63.957 kg Intake: IV 75 Sodium Chloride 0.9% 1, 75 000 ml @ 75 mls/hr IV . [id number] [facility] Rx#:[id number] Oral 250 240 180 Output: Urine 300 Other: # Voids 1 - Labs CBC & Chem 7: 04/25/23 06:44 04/25/23 06:44 Labs: Abnormal Lab Results - Last 24 Hours (Table) 04/23/23 04/24/23 04/25/23 Range/Units 11:47 18:07 06:44 MCV 102.3 H D (80.0-100.0) fL Lymphocytes # 0.4 L (1.0-4.8) k/uL Carbon Dioxide (22-30) mmol/L Glucose 106 H (74-99) mg/dL POC Glucose (mg/dL) (70-110) mg/dL Albumin (3.5-5.0) g/dL Vitamin B12 1253.0 H (200.0-944.0) pg/mL 04/25/23 04/25/23 Range/Units 06:44 11:38 MCV (80.0-100.0) fL Lymphocytes # (1.0-4.8) k/uL Carbon Dioxide 21 L (22-30) mmol/L Glucose (74-99) mg/dL POC Glucose (mg/dL) 112 H (70-110) mg/dL Albumin 3.1 L (3.5-5.0) g/dL Vitamin B12 (200.0-944.0) pg/mL
--- NOTE | 2023-04-25 14:06 | MR ---
EXAMINATION TYPE: MR brain wo/w con DATE OF EXAM: 04/25/2023 COMPARISON: CT brain 04/23/2023, 03/26/2023, CTA head neck 04/23/2023 HISTORY: Left leg arm weakness/numbness. TECHNIQUE: Multiplanar, multisequence images of the brain and brainstem is performed without and with IV contras t, utilizing 6.5 mL intravenous Gadavist . FINDINGS: Diffusion weighted images demonstrate no evidence of a recent infarct. Redemonstration of r ight subdural hematoma overlying the right frontoparietal convexity. There is adjacent mass effect wi th some effacement of the peripheral sulci. This measures 8 mm in thickness which is stable from prio r CT. There is heterogenous signal with dural thin rim enhancement. Trace T1 hyperintensity with smal l hematocrit level. This is most consistent with subacute to chronic subdural hematoma. There is shadia esponding susceptibility artifact related to blood products. Few scattered periventricular white salina er changes identified. Stable 1 mm of midline shift to the left. Postsurgical changes with 2 right-si ded maribell holes in the parietal region. No intraparenchymal enhancement. The basal cisterns and ventri cular system are within normal limits. Bilateral aphakia. The paranasal sinuses unremarkable. IMPRESSION: 1. No evidence for acute/subacute infarct. 2. 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 There is c orresponding dural enhancement. 3. No parenchymal abnormal enhancement.
[2023-04-25 16:49] LABS: Glucose,Whole Blood 128 mg/dL (70-110)
--- NOTE | 2023-04-25 17:20 | P.PN ---
Subjective Progress Note Date: 04/25/23 The patient seen at bedside and she is accompanied with her sister. Patient denies any headache, focal weakness, numbness, visual disturbance, any further episodes of of speech difficulty was blank episodes. She feels she is back at baseline. She denies of any nausea vomiting. She stated that she had history of right breast cancer and she required chemotherapy 15 years ago or may be more and she had repeated mammograms this year and no cancer she stated. Objective - Vital Signs Vital signs: Vital Signs Temp 98.9 F 04/25/23 12:00 Pulse 72 04/25/23 15:35 Resp 18 04/25/23 12:00 BP 145/83 04/25/23 12:00 Pulse Ox 98 04/25/23 12:00 FiO2 Intake & Output 04/24/23 04/25/23 04/25/23 18:59 06:59 18:59 Intake Total 325 240 960 Output Total 300 Balance 25 240 960 Weight 63.957 kg Intake: IV 75 600 Sodium Chloride 0.9% 1, 75 600 000 ml @ 75 mls/hr IV . [id number] [facility] Rx#:[id number] Oral 250 240 360 Output: Urine 300 Other: # Voids 1 - Exam GENERAL: The patient is lying in bed and is not in acute distress. NEUROLOGICAL: Higher mental function: The patient is awake, alert, oriented to self, place and time. She was able to name the current states, city able to identify objects as as pen and watch. She switched the names of her 2 daughters that were in the room. Patient is following simple commands. No aphasia and no neglect. Cranial nerves: The pupils are round, equal and reactive to light and accommodation. Visual gary are full to confrontation throughout. Extraocular movement is intact no nystagmus is noted. Facial sensation is normal to touch throughout. The facial strength is normal throughout. Hearing is mildly decreased bilaterally to hand rub. Tongue is midline and moved [id number] without any difficulty. No dysarthria is noted. Shoulder shrug is normal bilaterally. Motor: The strength is left lower extremity is 4+. Otherwise 5 over 5 throughout. Normal tone and bulk. Cerebellum: Normal finger to nose bilaterally. Sensation: Decrease Sensation to touch over the left upper and lower. Reflexes (right/left): 2+ throughout except ankles are 1+ Plantars are mute bilaterally. Some of the workup during this hospital visit consisted of: Vitamin B-12 was 1253 Folate is 29.[address] of the head and CT cervical spine is reported as interval decrease in the right subdural hemorrhage present on 03/26/2023. The remaining small amount of fluid in the extra-axial space along the right with some area of high density suggest mixed chronicity hemorrhage. There is decrease in midline shift as seen on prior. No evidence for acute/subacute CVA. The jimenez-white matter junction appears maintained. No evidence of cervical spine fracture. Moderate the multilevel degenerative disc disease. Repeat CT of the head on 04/23/2023 as reported as overall stable examination from earlier today was similar right subdural hematoma and 1 mm midline shift to the right and trace pneumocephalus status post maribell hole. No evidence of acut e/subacute CVA. Nonspecific white matter changes likely related to small vessel ischemic disease. CT angiography of the head and neck was reported as no evidence of dissection of the cervical internal carotid artery or vertebral artery. Less than 50% of the origin of the left internal carotid artery segment to calcified plaque. No hemodynamically stenosis of the right internal carotid artery. No evidence of high-grade intracranial stenosis. 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 Routine EEG: Normal. There is no focal slowing, epileptiform discharges or seizure on the EEG. MRI of the brain with and without is reported as no evidence for acute/subacute infarct. 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 There is corresponding dural enhancement. No parenchymal abnormal enhancement. I personally reviewed the MRI and agreed there is no acute or subacute ischemia and I agree there is a dural enhancement on the right hemisphere. 2-D echo was reported as left ventricular ejection fraction was 66 5%. - Labs CBC & Chem 7: 04/25/23 06:44 04/25/23 06:44 Labs: Abnormal Lab Results - Last 24 Hours (Table) 04/23/23 04/24/23 04/25/23 Range/Units 11:47 18:07 06:44 MCV 102.3 H D (80.0-100.0) fL Lymphocytes # 0.4 L (1.0-4.8) k/uL Carbon Dioxide (22-30) mmol/L Glucose 106 H (74-99) mg/dL POC Glucose (mg/dL) (70-110) mg/dL Albumin (3.5-5.0) g/dL Vitamin B12 1253.0 H (200.0-944.0) pg/mL 04/25/23 04/25/23 04/25/23 Range/Units 06:44 11:38 16:48 MCV (80.0-100.0) fL Lymphocytes # (1.0-4.8) k/uL Carbon Dioxide 21 L (22-30) mmol/L Glucose (74-99) mg/dL POC Glucose (mg/dL) 112 H 128 H (70-110) mg/dL Albumin 3.1 L (3.5-5.0) g/dL Vitamin B12 (200.0-944.0) pg/mL Assessment and Plan Assessment: This is an 82-year-old woman who had recurrent falls in the beginning of March 2023 at present our facility in 03/26/2023 initially and had a significant right subdural and was transferred to [facility] for evacuation then eventually she was discharged home for the past 2 weeks while she was a home she had difficulty getting her words out with blank stares lasting for about 5 minutes then was sleepy and tired after the episode. Repeated episode of speech difficulty with blank stares probably new onset seizure especially the with her recent subdural possibly irritating the brain. MRI the brain was negative for acute or subacute ischemia but has dural enhancement over the right hemisphere. And has stable subdural hematoma. The enhancement of the dural unsure if it's due to the recent subdural with surgery given the at the enhancement. Patient does not have any current headaches and no focal deficit she feels back to baseline currently. EEG is normal. Left lower extremity weakness with numbness rule out any acute or subacute ischemia or an any mass. Recent history of right hemispheric subdural due to falls status post maribell hole at [facility] on 03/26/2023. Unsure exactly cause of the patient repeated falls if was the due to her peripheral vascular disease or she had a stroke or other causes. She was complaining of unsteady gait and per family she had discoloration of the right lower extremity in which she followed up with waiver analyst and he recommended for tobacco cessation or can lead to amputation of her right lower extremity so unsure if she has Stable left MCA M2 segment 3.6 mm aneurysm on CTA. peripheral vascular disease. History of right breast cancer about 15 years ago status post radiation Tobacco use and stopped beginning of March 2023 Plan: Patient home Keppra was increased from 500 mg twice a day 2000 mg twice a day for concern for her seizure orthosis repeated episodes patient difficulty and blank stares. Currently the her symptoms are stable and has not had any further episodes. Routine EEG is normal Regarding the enhancement of the dura on the right hemisphere possibly due to the recent subdural as well as the surgery that cannot rule out any other underlying causes. Currently patient has no headache no focal deficits no fevers. I highly recommend a repeat MRI within 6-8 weeks as outpatient to assess the she continues to have the enhancement of the right dura. Avoid antiplatelets because of a recent subdural and the risk outweighed the benefit for now Every 4 hours neuro checks Seizure precaution Seizure pads PT OT are consulted Stable left MCA M2 segment 3.6 mm aneurysm on CTA: Recommend to follow-up with neurointerventionalist (Dr. Morales) as outpatient for surveillance and any intervention if needed. Patient has history of right breast cancer about 15 years ago rate and had radiation and she states that that she get surveillance mammograms and was told that it's the negative. Recommend the patient to follow-up with the an oncologist for surveillance. Recommend normotensive blood pressure and will defer management to primary team. For DVT prophylaxis use SCDs Upon discharge recommend the patient to follow-up with her neurologist as an outpatient within 1-2 weeks. Plan was discussed with the patient, her sister was at bedside and her nurse There is no further neurological workup. Please notify neurology team of any further concerns. Time with Patient: Less than 30
[2023-04-25] MEDS: PRAVASTATIN SODIUM 40 MG TAB PO SCH (20:21)
[2023-04-25] MEDS: NICOTINE 21MG/24HR PATCH TRANSDERM SCH (20:21)
[2023-04-25 20:26] LABS: Glucose,Whole Blood 122 mg/dL (70-110)
[2023-04-26 06:19] LABS: Glucose,Whole Blood 107 mg/dL (70-110)
[2023-04-26 09:19] VITALS: BP 124/73; RESP 18; TEMP 98
[2023-04-26] MEDS: SODIUM CHLORIDE 0.9% 1,000 ML IV SCH (09:19)
[2023-04-26] MEDS: atenoloL 25 MG TAB PO SCH (09:24)
[2023-04-26] MEDS: DAPAGLIFLOZIN PROPANEDIOL 5 MG TABLET PO SCH (09:24)
[2023-04-26] MEDS: CALCIUM CARBONATE 500 MG CHEWABLE PO SCH (09:24)
[2023-04-26] MEDS: IPRATROPIUM 0.5 MG/2.5 ML NEBU INHALATION SCH ×2 (09:24→12:47)
[2023-04-26] MEDS: TRIAMTERENE-HCTZ 37.5-25MG 1 EACH TAB PO SCH (09:24)
[2023-04-26] MEDS: levETIRAcetam 500 MG TAB PO SCH (09:24)
[2023-04-26] MEDS: VIT A,C & E-LUTEIN-MINERALS 1 EACH TAB PO SCH (09:24)
[2023-04-26] MEDS: DOCUSATE 100 MG CAP PO SCH (09:25)
[2023-04-26] MEDS: clonazePAM 1 MG TAB PO SCH (09:25)
[2023-04-26 09:40] VITALS: PULSE 74
[2023-04-26 11:11] LABS: Glucose,Whole Blood 74 mg/dL (70-110)
--- NOTE | 2023-04-26 13:21 | P.DS ---
Providers Date of admission: 04/23/23 15:45 Expected date of discharge: 04/26/23 Attending physician: Symone Pisano Consults: 04/23/23 15:20 Consult Physician Urgent Consulting Provider: Emy Herron Consult Reason/Comments: s/p SDH Do you want consulting provider notified?: Yes Primary care physician: Symone Pisano Hospital Course: HISTORY OF PRESENT ILLNESS: this is an 82-year-old female with a previous medical history significant for hypertension and hypertensive cardio vascular disease, hyperlipidemia, diabetes mellitus type 2, osteoarthritis, history of chronic tobacco use and dependence, PAD, has been under the care of Dr. 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, history of right hemispheric subdural hematoma after a fall back in 03/26/2023 for which she was transferred to [facility] [facility] [place] she was seen and evaluated by neurosurgery underwent maribell hole evacuation, and the patient was discharged to subacute rehabilitation at [facility] on the [place] she was left there and she has been home for about a week or so, patient apparently has been having issues with finding the words starting on Monday night and on Monday night developed to have a significant slurred speech and she could not find the right words, patient has been complaining minimal weakness in the left lower extremity, patient has been having issues with falls prior to her subdural hematoma, patient ended up coming to the emergency department at [facility] for evaluation of slurred speech, had a computed tomography scan of the brain that did show evidence of improvement of the subdural hematoma and midline shift, she did have a CT angiography of the carotid and the brain that showed moderate plaque formation in the carotid artery less than 50% with left middle cerebral artery and to segment 3.6 mm stable aneurysm, patient was evaluated by neurology she was started on Keppra 500 mg that was increased to thousand grams orally twice every day, patient was seen in consultation by neurology today, and he was recommended for the patient to stay on Keppra 1000 g orally twice every day, MRI of the brain with and without gadolinium was obtained, recommended no antiplatelet agents at this time, due to the risks outweigh benefits, physical therapy evaluation, seizure precautions, older adult social work specialist consultation for discharge planning. 04/25: Patient is seen today in follow-up. She has been seen by neurology and scheduled for MRI of the brain sometime today. Other studies completed including EEG which was normal. Echocardiogram revealed EF of 60-65%, mild increased left and really wall thickness, no mitral regurgitation, no pericardial effusion. Keppra has been increased from 500-1000 mg every 12 hours. Patient has had no seizure activity noted by staff. Her heart rate is in the 60s to 80s, blood pressure 132/83, pulse ox 95% on room air. 04/26: MRI of the brain reveals no evidence of acute or subacute infarct. Subtle subacute or chronic right subdural hematoma with 1 mm midline shift to the left. There is corresponding dural enhancement. No prior mild abnormal enhancement. Patient has been seen and followed by neurology and Keppra had been increased to 1000 mg twice a day. Neurology recommended a repeat MRI in 6-8 weeks as an outpatient regarding the enhancement of the right dura. Avoid antiplatelets because of recent subdural. Patient has been afebrile, heart rate in the 70s and 80s, blood pressure 124/73, pulse ox 93% on room air. Capillary blood glucose running between 74 and 128. Discharge plan is treat her return home with residential home care. Patient will be discharged today in stable condition. DISCHARGE DIAGNOSES: 1. TIA rule out acute CVA. Rule out seizure. 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 Also computed tomography scan did show an improvement of the subdural hematoma as well as the midline shift. EEG did not reveal seizure activity. 2. Hypertension and hypertensive cardiovascular disease. 3. Hyperlipidemia. 4. Diabetes mellitus type 2. 5. Generalized anxiety disorder. 6. Osteoarthritis. 7. Recurrent falls . 8. Macular degeneration. Stable. Greater than 35 minutes was utilized and coordinating patient's discharge. Impression and plan of care have been directed as dictated by the signing physician. Yolis Gibbs nurse practitioner acting as scribe for signing physician. Patient Condition at Discharge: Good Plan - Discharge Summary Discharge Rx Participant: No New Discharge Prescriptions: New atenoloL [Tenormin] 25 mg PO DAILY #30 tab Continue Pravastatin Sodium [Pravachol] 40 mg PO HS Nicotine 21Mg/24Hr Patch [Habitrol] 1 patch TRANSDERM HS Acetaminophen Tab [Tylenol] 500 - 1,000 mg PO Q6HR PRN PRN Reason: Pain Umeclidinium [place] [Incruse Ellipta] 1 puff INHALATION RT-DAILY Marengo-3 Fatty Acids [[place]arengo-3] 1,000 mg PO DAILY Cranberry Fruit Extract [Cranberry] 500 mg PO DAILY Dapagliflozin Propanediol [Farxiga] 5 mg PO DAILY clonazePAM [KlonoPIN] 1 mg PO BID Vit C/E/Zn/Coppr/Lutein/Zeaxan [Preservision Areds 2 Softgel] 1 cap PO BID Calcium Carbonate [Calcium] 600 mg PO DAILY Triamterene-Hctz 37.5-25Mg [Maxzide 37.5-25] 1 tab PO DAILY HYDROcodone/APAP 5-325MG [Norwood 5-325] 1 tab PO Q4HR PRN PRN Reason: pain Docusate [Colace] 100 mg PO BID Changed levETIRAcetam [Keppra] 1,000 mg PO Q12H #120 tab Discharge Medication List Calcium Carbonate [Calcium] 600 mg PO DAILY 03/24/22 [History] Pravastatin Sodium [Pravachol] 40 mg PO HS 03/24/22 [History] Vit C/E/Zn/Coppr/Lutein/Zeaxan [Preservision Areds 2 Softgel] 1 cap PO BID 03/24/22 [History] clonazePAM [KlonoPIN] 1 mg PO BID 03/24/22 [History] Acetaminophen Tab [Tylenol] 500 - 1,000 mg PO Q6HR PRN 04/23/23 [History] Cranberry Fruit Extract [Cranberry] 500 mg PO DAILY 04/23/23 [History] Dapagliflozin Propanediol [Farxiga] 5 mg PO DAILY 04/23/23 [History] Docusate [Colace] 100 mg PO BID 04/23/23 [History] HYDROcodone/APAP 5-325MG [Norwood 5-325] 1 tab PO Q4HR PRN 04/23/23 [History] Nicotine 21Mg/24Hr Patch [Habitrol] 1 patch TRANSDERM HS 04/23/23 [History] Marengo-3 Fatty Acids [[place]go-3] 1,000 mg PO DAILY 04/23/23 [History] Triamterene-Hctz 37.5-25Mg [Maxzide 37.5-25] 1 tab PO DAILY 04/23/23 [History] Umeclidinium [place] [Incruse Ellipta] 1 puff INHALATION RT-DAILY 04/23/23 [History] atenoloL [Tenormin] 25 mg PO DAILY #30 tab 04/26/23 [Rx] levETIRAcetam [Keppra] 1,000 mg PO Q12H #120 tab 04/26/23 [Rx] Follow up Appointment(s)/Referral(s): Residential Home,Health [NON-STAFF] - Symone Pisano MD [Primary Care Provider] - 1 Week Patient Instructions/Handouts: Epilepsy (DC), Intracranial Hematoma (GEN)
== END 2023-04-26 15:38 | disposition home or self-care (01) ==
LOC: EC 11:05 → 6NMEDSUR 15:45 → INTOOBSV 15:45 → OBSVTOIN 15:45 → 5NMEDONC 16:35 → 3SCARD 17:29 → UNDODISIN 04-26 15:38
PROVIDERS: ADMIT Internal Medicine; ATTEND Internal Medicine
DX: S06.5XAA Traumatic subdural hemorrhage with loss of consciousness status unknown, initial encounter (principal); R47.01 Aphasia; E11.51 Type 2 diabetes mellitus with diabetic peripheral angiopathy without gangrene; E78.5 Hyperlipidemia, unspecified; F41.1 Generalized anxiety disorder; F32.A Depression, unspecified; I11.9 Hypertensive heart disease without heart failure; M19.90 Unspecified osteoarthritis, unspecified site; R29.6 Repeated falls; H35.30 Unspecified macular degeneration; F17.200 Nicotine dependence, unspecified, uncomplicated; Z85.3 Personal history of malignant neoplasm of breast; Z79.82 Long term (current) use of aspirin; Z79.1 Long term (current) use of non-steroidal anti-inflammatories (NSAID); Z79.899 Other long term (current) drug therapy; Z79.84 Long term (current) use of oral hypoglycemic drugs; W19.XXXA Unspecified fall, initial encounter
CPT/HCPCS: 96376 ×2; 96361 ×3; 96374; 96375; 99285; 36415; 94640 ×3; 95816; 93005; 93306; 97163; 97167; 80053 ×2; 80048; 80177; 84443; 82607; 82746; 84484; 85025 ×2; 85610; 85730; 81001; 72125; 70496; 70450; 70498; 70553; G0378 ×4; S4990 ×3; J1170 ×3; J1953; Q9967; A9585

== ENCOUNTER → 2023-07-24 | Outpatient (CLI) | payer MEDICARE ==
--- NOTE | 2023-07-24 13:27 | CT ---
EXAMINATION TYPE: CT brain wo con CT DLP: 1121 mGycm, Automated exposure control for dose reduction was used. DATE OF EXAM: 07/24/2023 1:19 PM COMPARISON: Prior CT brain 04/23/2023, MRI brain 04/25/2023 CLINICAL INDICATION:Female, 82 years old with history of S06.%XXA subdural hematoma, Subdural hematom a TECHNIQUE: Brain: Multiple axial CT images of the brain were obtained without IV contrast. Coronal and sagittal reformats reviewed. FINDINGS: Brain: Extra-axial spaces: Decreased trace right frontal convexity subdural hematoma with a maximum thicknes s of 3 mm, previously measured up to 10 mm. Ventricular system: Within normal limits Cerebral parenchyma: Cerebral atrophy. No acute intraparenchymal hemorrhage or mass effect. The jimenez -white junction is well differentiated. Scattered hypoattenuating areas are seen within the white mat ter. Cerebellum: Unremarkable. Mass effect: No midline shift. Intracranial vasculature: Atherosclerotic calcifications of the intracranial vessels. Redemonstration of left MCA M2 segment 3.6 mm aneurysm. Soft tissues: Sebaceous cyst/calcified granuloma along the left posterior parietal soft tissues. Calvarium/osseous structures: No depressed skull fracture. Benign hyperostosis frontalis noted. Right frontal craniotomy maribell holes redemonstrated. Paranasal sinuses and mastoid air cells: Clear Visualized orbits: Bilateral aphakia IMPRESSION: 1. Decreased right frontal subdural hematoma with thin nectar thickness of 3 mm, previously 10 mm. 2. Nonspecific white matter changes likely related to small vessel ischemic disease. 3. Redemonstration of left MCA M2 segment 3.6 mm aneurysm.
== END | disposition home or self-care (01) ==
LOC: RADCTMAIN 12:55
PROVIDERS: ATTEND Internal Medicine
DX: S06.5XAA Traumatic subdural hemorrhage with loss of consciousness status unknown, initial encounter (principal); R90.82 White matter disease, unspecified
CPT/HCPCS: 70450

== ENCOUNTER 2023-10-19 13:59 | Emergency (ER) | payer MEDICARE ==
[2023-10-19 14:18] VITALS: RESP 16; TEMP 98.3
[2023-10-19] MEDS ORDERED: SODIUM CHLORIDE 0.9% 1,000 ML IV STA (15:30)
[2023-10-19 16:16] LABS: Sodium 138 mmol/L (137-145)
[2023-10-19 16:19] LABS: ALT 27 U/L (4-34); AST 39 U/L (14-36); African American GFR (CKD) 71 (>60 ml/min/1.73 sqM); Albumin 4.1 g/dL (3.5-5.0); Alkaline Phosphatase 119 U/L (38-126); Anion Gap 6 mmol/L; Blood Urea Nitrogen 21 mg/dL (7-17); Calcium 9.6 mg/dL (8.4-10.2); Carbon Dioxide 32 mmol/L (22-30); Chloride 100 mmol/L (98-107); Glucose 103 mg/dL (74-99); Non-African American GFR(CKD) 61 (>60 ml/min/1.73 sqM); Phosphorus 3.6 mg/dL (2.5-4.5); Potassium 2.8 mmol/L (3.5-5.1); Total Bilirubin 0.7 mg/dL (0.2-1.3); Total Protein 7.8 g/dL (6.3-8.2)
--- NOTE | 2023-10-19 16:23 | XR ---
EXAMINATION TYPE: XR chest 2V DATE OF EXAM: 10/19/2023 4:19 PM CLINICAL INDICATION:Female, 82 years old with history of dizziness; [facility] COMPARISON: Chest radiographs from 03/26/2023 TECHNIQUE: XR chest 2V Frontal and lateral views of the chest. FINDINGS: Lungs/Pleura: There is no evidence of pleural effusion, focal consolidation, or pneumothorax. Pulmonary vascularity: Unremarkable. Heart/mediastinum: Cardiomediastinal silhouette is unremarkable. Musculoskeletal: No acute osseous pathology. IMPRESSION: 1. No acute cardiopulmonary disease process. 2. COPD changes.
[2023-10-19 16:24] LABS: HCT 42.2 % (34.0-46.0); HGB 14.9 gm/dL (11.4-16.0); MCHC 35.4 g/dL (31.0-37.0); MCV 96.2 fL (80.0-100.0); Platelet Count 179 k/uL (150-450); RBC 4.39 m/uL (3.80-5.40); RDW 13.7 % (11.5-15.5); WBC 7.1 k/uL (3.8-10.6)
--- NOTE | 2023-10-19 16:34 | ED ---
General Adult HPI - General Chief complaint: Nausea/Vomiting/Diarrhea Stated complaint: Fall Time Seen by Provider: 10/19/23 15:05 Source: patient, family, RN notes reviewed Mode of arrival: wheelchair Limitations: no limitations - History of Present Illness Initial comments: Patient is an 82-year-old female presented to the ER with a chief complaint of dizziness. Patient states she was going to get into the shower this morning and felt extremely dizzy as if the room was spinning and her legs gave out from underneath her. Patient denies any head injury, loss of consciousness, blood thinner use. Denies any injuries. Patient reports as she collapsed she did have an episode of diarrhea. Patient states she was too weak to get up. She denies any chest pain, shortness of breath prior to collapse. She was recently hospitalized and treated for subdural hematoma and reports that these were similar symptoms of hematoma. Patient is being monitored outpatient. Daughters report that she has had recent medication changes. They report she has been on Farxiga 5 mg which was recently increased to 10 mg. Patient is also taking furosemide. Patient is reporting suprapubic abdominal pain. Patient denies any current headache, double blurry vision, cough, fevers, chills, night sweats, chest pain, shortness of breath, urinary symptoms. - Related Data Home Medications Medication Instructions Recorded Confirmed Pravastatin Sodium [Pravachol] 40 mg PO HS 03/24/22 10/19/23 Vit C/E/Zn/Coppr/Lutein/Zeaxan 1 cap PO BID 03/24/22 10/19/23 [Preservision Areds 2 Softgel] clonazePAM [KlonoPIN] 1 mg PO BID 03/24/22 10/19/23 Dapagliflozin Propanediol [Farxiga] 5 mg PO DAILY 04/23/23 10/19/23 Docusate [Colace] 100 mg PO DAILY PRN 04/23/23 10/19/23 HYDROcodone/APAP 5-325MG [[place] 1 tab PO BID PRN 04/23/23 10/19/23 5-325] Calcium Carbonate/Vitamin D3 1 tab PO BID 10/19/23 10/19/23 [Caltrate 600 Plus D3 20 Mcg (800 Iu)] Cholecalciferol [Vitamin D3 (25 50 mcg PO DAILY 10/19/23 10/19/23 Mcg = 1000 Iu)] Citalopram Hydrobromide [CeleXA] 30 mg PO DAILY 10/19/23 10/19/23 Citalopram Hydrobromide [CeleXA] 40 mg PO DIRECTED 10/19/23 10/19/23 Ezetimibe [Zetia] 10 mg PO DAILY 10/19/23 10/19/23 Multivitamins, Thera [Multivitamin 1 tab PO DAILY 10/19/23 10/19/23 (formulary)] Potassium Chloride ER [K-Dur 20] 20 meq PO DAILY 10/19/23 10/19/23 levETIRAcetam [Keppra] 500 mg PO Q12HR 10/19/23 10/19/23 Previous Rx's Medication Instructions Recorded atenoloL [Tenormin] 25 mg PO DAILY #30 tab 04/26/23 Allergies Allergy/AdvReac Type Severity Reaction Status Date / Time No Known Allergies Allergy Verified 10/19/23 16:12 Review of Systems ROS Statement: Those systems with pertinent positive or pertinent negative responses have been documented in the HPI. ROS Other: All systems not noted in ROS Statement are negative. Past Medical History Past Medical History: Cancer, Diabetes Mellitus, Hyperlipidemia, Hypertension, Osteoarthritis (OA), Thyroid Disorder Additional Past Medical History / Comment(s): macular degeneration. Hx of breast cancer right breast 2005. History of Any Multi-Drug Resistant Organisms: None Reported Past Surgical History: Breast Surgery Additional Past Surgical History / Comment(s): bilat toe surgery? Pneumothorax 50 years ago Past Anesthesia/Blood Transfusion Reactions: No Reported Reaction Past Psychological History: No Psychological Hx Reported Smoking Status: Current every day smoker Past Alcohol Use History: None Reported Past Drug Use History: None Reported General Exam Limitations: no limitations General appearance: alert, in no apparent distress Head exam: Present: atraumatic, normocephalic, normal inspection Eye exam: Present: normal appearance, PERRL, EOMI. Absent: scleral icterus, conjunctival injection, periorbital swelling Pupils: Present: normal accommodation ENT exam: Present: normal exam, normal oropharynx, mucous membranes moist, TM's normal bilaterally Respiratory exam: Present: normal lung sounds bilaterally. Absent: respiratory distress, wheezes, rales, rhonchi, stridor Cardiovascular Exam: Present: regular rate, normal rhythm, normal heart sounds. Absent: systolic murmur, diastolic murmur, rubs, gallop, clicks GI/Abdominal exam: Present: soft, normal bowel sounds. Absent: distended, tenderness, guarding, rebound, rigid Neurological exam: Present: alert, oriented X3, CN II-XII intact Psychiatric exam: Present: normal affect, normal mood Skin exam: Present: warm, dry, intact, normal color. Absent: rash Course Vital Signs 10/19/23 10/19/23 10/19/23 14:02 17:38 18:35 Temperature 98.3 F Pulse Rate 57 L 52 L 59 L Respiratory 16 16 16 Rate Blood Pressure 125/65 161/69 168/85 O2 Sat by Pulse 95 96 Oximetry Medical Decision Making - Medical Decision Making Was pt. sent in by a medical professional or institution (DAQUAN Lipscomb, BSA/AML COMPLIANCE OFFICER, urgent care, hospital, or custodial...) When possible be specific @ -No Did you speak to anyone other than the patient for history (EMS, parent, family, police, friend...)? What history was obtained from this source @ -Family providing some past medical history Did you review nursing and triage notes (agree or disagree)? Why? @ -I reviewed and agree with nursing and triage notes Were old charts reviewed (outside hosp., previous admission, EMS record, old EKG, old radiological studies, urgent care reports/EKG's, custodial records)? Report findings @ -No old charts were reviewed Differential Diagnosis (chest pain, altered mental status, abdominal pain women, abdominal pain men, vaginal bleeding, weakness, fever, dyspnea, syncope, headache, dizziness, GI bleed, back pain, seizure, CVA, palpatations, mental health, musculoskeletal)? @ -Differential Dizziness: Benign paroxysmal positional Vertigo, Menieres disease, otitis media, acoustic neuroma, vertebrobasilar insufficiency, cerebellar stroke, encephalitis, hypovolemic, arrhythmia, coronary artery syndrome, anemia, this is not meant to be an all-inclusive list EKG interpreted by me (3pts min.). @ -As above X-rays interpreted by me (1pt min.). @ -Chest x-ray interpreted by me shows no acute process. CT interpreted by me (1pt min.). @ -CT brain interpreted by me showed no acute changes. U/S interpreted by me (1pt. min.). @ -None done What testing was considered but not performed or refused? (CT, X-rays, U/S, labs)? Why? @ -None What meds were considered but not given or refused? Why? @ -None Did you discuss the management of the patient with other professionals (professionals i.e. , PA, BSA/AML COMPLIANCE OFFICER, lab, RT, psych nurse, social services specialist, accountant clerk, teacher, restoration officer, casework specialist)? Give summary @ -No Was smoking cessation discussed for >3mins.? @ -No Was critical care preformed (if so, how long)? @ -No Were there social determinants of health that impacted care today? How? (Homelessness, low income, unemployed, alcoholism, drug addiction, transportation, low edu. Level, literacy, decrease access to med. care, longterm, r ehab)? @ -No Was there de-escalation of care discussed even if they declined (Discuss DNR or withdrawal of care, Hospice)? DNR status @ -No What co-morbidities impacted this encounter? (DM, HTN, Smoking, COPD, CAD, Cancer, CVA, ARF, Chemo, Hep., AIDS, mental health diagnosis, sleep apnea, morbid obesity)? @ -Diabetes mellitus, thyroid disorder, hypertension Was patient admitted / discharged? Hospital course, mention meds given and route, prescriptions, significant lab abnormalities, going to OR and other pertinent info. @ -Discharge. Patient is an 82-year-old female presented to the ER with a chief complaint of dizziness. Vital stable. History and physical exam were completed. Patient was in no signs of acute distress with no acute neurological findings. Labs obtained in the ER significant for potassium of 2.8 otherwise unremarkable. COVID-19 positive. RSV, influenza negative. EKG without signs of acute ischemia or infarct. Chest x-ray interpreted by me shows no acute process. CT brain shows no acute process. Patient recieved PO potassium and IV fluids in the ER. I discussed lab and imaging findings with patient. All questions answered. Return parameters were discussed. Patient will be discharged in stable condition with follow up to PCP. Patient and family, at bedside, expressed understanding and agreement with care plan. Undiagnosed new problem with uncertain prognosis? @ -No Drug Therapy requiring intensive monitoring for toxicity (Heparin, Nitro, Insulin, Cardizem)? @ -No Were any procedures done? @ -No Diagnosis/symptom? @ -COVID19/hypokalemia Acute, or Chronic, or Acute on Chronic? @ -Acute Uncomplicated (without systemic symptoms) or Complicated (systemic symptoms)? @ -Uncomplicated Side effects of treatment? @ -No Exacerbation, Progression, or Severe Exacerbation? @ -No Poses a threat to life or bodily function? How? (Chest pain, [place], [place], pneumonia, PE, COPD, DKA, ARF, appy, cholecystitis, CVA, Diverticulitis, Homicidal, Suicidal, threat to staff... and all critical care pts) @ -No - Lab Data Result diagrams: 10/19/23 15:38 10/19/23 15:38 Lab Results 10/19/23 10/19/23 10/19/23 Range/Units 15:38 15:38 15:38 WBC 7.1 (3.8-10.6) k/uL RBC 4.39 (3.80-5.40) m/uL Hgb 14.9 (11.4-16.0) gm/dL Hct 42.2 (34.0-46.0) % MCV 96.2 (80.0-100.0) fL MCH 34.0 (25.0-35.0) pg MCHC 35.4 (31.0-37.0) g/dL RDW 13.7 (11.5-15.5) % Plt Count 179 (150-450) k/uL MPV 8.0 Sodium 138 (137-145) mmol/L Potassium 2.8 L (3.5-5.1) mmol/L Chloride 100 (98-107) mmol/L Carbon Dioxide 32 H (22-30) mmol/L Anion Gap 6 mmol/L BUN 21 H (7-17) mg/dL Creatinine 0.89 (0.52-1.04) mg/dL Est GFR (CKD-EPI)AfAm 71 (>60 ml/min/1.73 sqM) Est GFR (CKD-EPI)NonAf 61 (>60 ml/min/1.73 sqM) Glucose 103 H (74-99) mg/dL Calcium 9.6 (8.4-10.2) mg/dL Phosphorus 3.6 (2.5-4.5) mg/dL Magnesium 2.0 (1.6-2.3) mg/dL Total Bilirubin 0.7 (0.2-1.3) mg/dL AST 39 H (14-36) U/L ALT 27 (4-34) U/L Alkaline Phosphatase 119 (38-126) U/L Total Protein 7.8 (6.3-8.2) g/dL Albumin 4.1 (3.5-5.0) g/dL Influenza Type A (PCR) Not Detected (Not Detectd) Influenza Type B (PCR) Not Detected (Not Detectd) RSV (PCR) Not Detected (Not Detectd) SARS-CoV-2 (PCR) Detected A (Not Detectd) - EKG Data -: EKG Interpreted by Vt EKG Comments: EKG taken at 15: 23 shows sinus bradycardia with no acute ST segment abnormalities. Ventricular rate 52, KS interval 142, QRS duration 81, QT/QTc 276/257. - Radiology Data Radiology results: report reviewed, image reviewed Disposition Clinical Impression: COVID-19, Hypokalemia Disposition: HOME SELF-CARE Condition: Stable Instructions (If sedation given, give patient instructions): COVID-19 (Coronavirus Disease 2019) (ED) Additional Instructions: Please use [id number] Tylenol or Motrin for fever and pain control. Follow-up with PCP. Return to ER for any new or worsening symptoms. Is patient prescribed a controlled substance at d/c from ED?: No Referrals: Symone Pisano MD [Primary Care Provider] - 1-2 days Time of Disposition: 17:54
[2023-10-19] MEDS ORDERED: POTASSIUM BICARBONATE/CIT AC 20 MEQ TABLET.EFF PO ONE ×2 (18:00→20:00)
--- NOTE | 2023-10-19 18:15 | CT ---
EXAMINATION TYPE: CT brain wo con DATE OF EXAM: 10/19/2023 COMPARISON: 07/24/2023 INDICATION: fall, weakness DLP: 1083.4 mGycm, Automated exposure control for dose reduction was used. CONTRAST: None CT of the brain is performed utilizing 3 mm thick sections through the posterior fossa and 3 mm thick sections through the remaining calvarium. Study is performed within 24 hours of arrival to the hosp ital. No abnormal hyperdensity is present to suggest an acute intracranial hemorrhage. No mass lesion is evident. No acute infarcts are evident. Mild periventricular white matter hypodensity is present, likely on th e basis of chronic white matter ischemic changes. Ventricles and sulci are prominent for the patient age. Paranasal sinuses and mastoid air cells within the [id number] are clear. IMPRESSION: 1. Atrophy with mild chronic appearing periventricular white matter ischemic-type changes.
[2023-10-19 18:43] VITALS: BP 168/85; PULSE 59
== END 2023-10-19 18:45 | disposition home or self-care (01) ==
LOC: EC 13:59
DX: U07.1 COVID-19 (principal); E87.6 Hypokalemia; R00.1 Bradycardia, unspecified; J44.9 Chronic obstructive pulmonary disease, unspecified; E11.9 Type 2 diabetes mellitus without complications; I10 Essential (primary) hypertension; E78.5 Hyperlipidemia, unspecified; M19.90 Unspecified osteoarthritis, unspecified site; F17.200 Nicotine dependence, unspecified, uncomplicated; Z79.899 Other long term (current) drug therapy; Z79.1 Long term (current) use of non-steroidal anti-inflammatories (NSAID); Z79.84 Long term (current) use of oral hypoglycemic drugs
CPT/HCPCS: 36415; 70450; 71046; 80053; 80177; 83735; 84100; 85027; 87636; 93005; 96360; 99285

== ENCOUNTER → 2024-04-18 | Outpatient (CLI) | payer MEDICARE ==
--- NOTE | 2024-04-18 09:39 | US ---
EXAMINATION TYPE: US liver DATE OF EXAM: 04/18/2024 COMPARISON: NONE CLINICAL INDICATION: Female, 83 years old with history of R74.01 ELEVATION LFT'S; Abnormal labs. TECHNIQUE: Multiple sonographic images of the right upper quadrant are obtained. FINDINGS: EXAM MEASUREMENTS: Liver Length: 13.2 cm Gallbladder Wall: 0.1 cm CBD: 0.6 cm Right Kidney: 8.7 x 3.9 x 4.3 cm Pancreas: Echogenic in appearance. Main pancreatic duct- 4.1 mm Liver: wnl Gallbladder: No stones or wall thickening Evidence for sonographic Shah's sign: neg CBD: wnl Right Kidney: Cortical thinning. Lower pole nonshadowing echogenic focus = 0.3 cm IMPRESSION: Nonobstructing nephrolithiasis right kidney.
== END | disposition home or self-care (01) ==
LOC: RADUSWWP 09:04
PROVIDERS: ATTEND Internal Medicine
DX: N20.0 Calculus of kidney (principal); R74.01 Elevation of levels of liver transaminase levels
CPT/HCPCS: 76705

== ENCOUNTER → 2024-04-18 | Outpatient (CLI) | payer MEDICARE ==
--- NOTE | 2024-04-18 11:55 | BD ---
EXAMINATION TYPE: Axial Bone Density DATE OF EXAM: 04/18/2024 CLINICAL HISTORY: 83 years old Female. ICD-10 CODE: M81.0 OSTEOPOROSIS Height: 64.5 Weight: 151 FRAX RISK QUESTIONS: Family History (Parent hip fracture): no History of Fracture in Adulthood: no Secondary Osteoporosis: no RISK FACTORS HISTORY OF: Surgery to Spine/Hip(right/left)/Wrist (right/left): no MEDICATIONS: Thyroid Medications: no Osteoporosis Medications: no EXAM MEASUREMENTS: Bone mineral densitometry was performed using the Videoflow System. Bone mineral density as measured about the Lumbar spine is: ----- L1-L4(G/cm2): 1.333 T Score Values are as follows: ----- L1: -0.5 ----- L2: 0.7 ----- L3: 2.4 ----- L4: 2.3 ----- L1-L4: 1.3 Z Score Values are as follows: ----- L1: 1.3 ----- L2: 2.5 ----- L3: 4.1 ----- L4: 4.0 ----- L1-L4: 3.0 Bone mineral density has: Decreased -1.1% since study of: 02-17-2022 Bone mineral density about the R hip (g/cm2): 0.837 Bone mineral density about the L hip (g/cm2): 0.846 T Score values are as follows: -----R Neck: -1.6 -----L Neck: -1.7 -----R Total: -1.4 -----L Total: -1.3 Z Score values are as follows: -----R Neck: 0.5 -----L Neck: 0.4 -----R Total: 0.6 -----L Total: 0.7 Bone mineral density has: Decreased -0.4% since study of: 02-17-2022 FRAX%s: The graph provided illustrates a 14.9% chance for a major osteoporotic fx and a 4.2% chance f or the hips probability for fx in 10 years time. IMPRESSION: Osteopenia (T Score between -2.5 and -1). There is slightly increased risk of fracture and the patient may be considered for treatment. Re-Screen 2-5 years. NOTE: T-SCORE=SD OF THE YOUNG ADULT MEAN.
--- NOTE | 2024-04-22 11:02 | MM ---
Reason for Exam: Screening (asymptomatic). Last screening mammogram was performed 12 month(s) ago. Patient History: Menarche at age 14. First Full-Term at age 23. Postmenopausal. Breast cancer, right, age 67. 04/12/2022, Benign US biopsy breast VAD RT on the right side. 02/07/2000, Benign MG pre op needle loc LT - 2 on the left side. 2008, Lumpectomy on the Right side. 2008, Radiation Therapy on the right side. Prior Study Comparison: 08/30/2016 Screening Mammogram, Unknown. 07/25/2018 Bilateral Screening Mammogram, [facility]. 08/26/2019 Bilateral Screening Mammogram, [facility]. 02/11/2021 Bilateral Screening Mammogram, [facility]. 02/24/2022 Bilateral MG 3D screening mammo w/cad, [facility]. 04/12/2022 Right MG diagnostic mammo RT wo CAD, [facility]. 04/14/2023 Bilateral MG 3D diag mammo w/cad [facility], [facility]. Tissue Density: There are scattered areas of fibroglandular density. Findings: Analyzed By CAD. Right breast: There is no suspicious group of microcalcifications or new suspicious mass. Benign-appearing calcifications right breast. Left breast: There is no suspicious group of microcalcifications or new suspicious mass. Overall Assessment: Benign, BI-RAD 2 Management: Screening Mammogram of both breasts in [address] [facility] will attempt to contact patient to return for supplemental views and ultrasound if indicated. Patient should continue monthly self-breast exams. A clinical breast exam by your physician is recommended on an annual basis. This exam should not preclude additional follow-up of suspicious palpable abnormalities. Note on Shwetha scores and lifetime risk: 1. A Shwetha score greater than 3% is considered moderate risk. If this is the case, consider specialist referral to assess eligibility for a risk reducing agent. 2. If overall lifetime risk for the development of breast cancer is 20% or higher, the patient may qualify for future screening with alternating mammogram and breast MRI. Electronically signed and approved by: Alex You DO
== END | disposition home or self-care (01) ==
LOC: RADMAMWWP 09:06
PROVIDERS: ATTEND Internal Medicine
DX: Z12.31 Encounter for screening mammogram for malignant neoplasm of breast (principal); M81.0 Age-related osteoporosis without current pathological fracture; M85.89 Other specified disorders of bone density and structure, multiple sites; R92.323 Mammographic fibroglandular density, bilateral breasts; Z78.0 Asymptomatic menopausal state
CPT/HCPCS: 77063; 77067; 77080

== ENCOUNTER 2025-02-03 12:57 | Inpatient (IN) | payer MEDICARE ==
--- NOTE | 2025-02-03 15:29 | ED ---
Skin/Abscess/FB HPI - General Chief complaint: Skin/Abscess/Foreign Body Stated complaint: R leg issue Time Seen by Provider: 02/03/25 15:19 Source: patient, RN notes reviewed Mode of arrival: ambulatory Limitations: no limitations - History of Present Illness Initial comments: 84-year-old female presenting for right leg wound x 1 week. States she tripped and fell in her bedroom 1 week ago, cutting the lateral aspect of her left leg on her bed frame. She was seen from urgent care who prescribed her an antibiotic. She took the course of antibiotics and was seen at urgent care again today for a checkup where they told her the infection looked worse and sent her to the ER for further evaluation. She does have a history of diabetes, states she is unsure if it is type I or type II. States she lives in an assisted living facility. Denies fevers, chills, nausea, vomiting. - Related Data Home Medications Medication Instructions Recorded Confirmed Pravastatin Sodium [Pravachol] 40 mg PO HS 03/24/22 10/19/23 Vit C/E/Zn/Coppr/Lutein/Zeaxan 1 cap PO BID 03/24/22 10/19/23 [Preservision Areds 2 Softgel] clonazePAM [KlonoPIN] 1 mg PO BID 03/24/22 10/19/23 Dapagliflozin Propanediol [Farxiga] 5 mg PO DAILY 04/23/23 10/19/23 Docusate [Colace] 100 mg PO DAILY PRN 04/23/23 10/19/23 HYDROcodone/APAP 5-325MG [Nelson 1 tab PO BID PRN 04/23/23 10/19/23 5-325] Calcium Carbonate/Vitamin D3 1 tab PO BID 10/19/23 10/19/23 [Caltrate 600 Plus D3 20 Mcg (800 Iu)] Cholecalciferol [Vitamin D3 (25 50 mcg PO DAILY 10/19/23 10/19/23 Mcg = 1000 Iu)] Citalopram Hydrobromide [CeleXA] 30 mg PO DAILY 10/19/23 10/19/23 Citalopram Hydrobromide [CeleXA] 40 mg PO DIRECTED 10/19/23 10/19/23 Ezetimibe [Zetia] 10 mg PO DAILY 10/19/23 10/19/23 Multivitamins, Thera [Multivitamin 1 tab PO DAILY 10/19/23 10/19/23 (formulary)] Potassium Chloride ER [K-Dur 20] 20 meq PO DAILY 10/19/23 10/19/23 levETIRAcetam [Keppra] 500 mg PO Q12HR 10/19/23 10/19/23 Previous Rx's Medication Instructions Recorded atenoloL [Tenormin] 25 mg PO DAILY #30 tab 04/26/23 Allergies Allergy/AdvReac Type Severity Reaction Status Date / Time No Known Allergies Allergy Verified 02/03/25 13:32 Review of Systems ROS Statement: Those systems with pertinent positive or pertinent negative responses have been documented in the HPI. ROS Other: All systems not noted in ROS Statement are negative. Past Medical History Past Medical History: Cancer, Diabetes Mellitus, Hyperlipidemia, Hypertension, Osteoarthritis (OA), Thyroid Disorder Additional Past Medical History / Comment(s): macular degeneration. Hx of breast cancer right breast 2005. History of Any Multi-Drug Resistant Organisms: MRSA Date of last positivie culture/infection: 06/24/24 MDRO Source:: urine Past Surgical History: Breast Surgery Additional Past Surgical History / Comment(s): bilat toe surgery? Pneumothorax 50 years ago Past Anesthesia/Blood Transfusion Reactions: No Reported Reaction Past Psychological History: No Psychological Hx Reported Smoking Status: Current every day smoker Past Alcohol Use History: None Reported Past Drug Use History: None Reported General Exam Limitations: no limitations General appearance: alert, in no apparent distress Head exam: Present: atraumatic, normocephalic, normal inspection Right Knee exam: Present: normal inspection, full ROM. Absent: tenderness, swelling Lower Leg exam: Present: full ROM, tenderness, swelling, erythema. Absent: normal inspection (There is a 4 cm grade 2 diabetic ulceration present on the lateral aspect of lower right leg. There is surrounding erythema extending to ventral right lower leg and ventral right foot), abrasion Ankle exam: Present: full ROM, swelling. Absent: normal inspection, tenderness Foot/Toe exam: Present: full ROM. Absent: normal inspection, tenderness, swelling Neurovascular tendon exam: Present: no vascular compromise. Absent: pulse deficit, abnormal cap refill, motor deficit Neurological exam: Present: alert, oriented X3 Psychiatric exam: Present: normal affect, normal mood Skin exam: Present: warm, dry, intact, normal color. Absent: rash Course Vital Signs 02/03/25 13:23 Temperature 97.8 F Pulse Rate 99 Respiratory 18 Rate Blood Pressure 147/79 O2 Sat by Pulse 90 L Oximetry Medical Decision Making - Medical Decision Making Was pt. sent in by a medical professional or institution (, DAQUAN, DIRECTOR DATA, urgent care, hospital, or prison...) When possible be specific @ -No Did you speak to anyone other than the patient for history (EMS, parent, family, police, friend...)? What history was obtained from this source @ -No Did you review nursing and triage notes (agree or disagree)? Why? @ -I reviewed and agree with nursing and triage notes Were old charts reviewed (outside hosp., previous admission, EMS record, old EKG, old radiological studies, urgent care reports/EKG's, prison records)? Report findings @ -No old charts were reviewed Differential Diagnosis (chest pain, altered mental status, abdominal pain women, abdominal pain men, vaginal bleeding, weakness, fever, dyspnea, syncope, headache, dizziness, GI bleed, back pain, seizure, CVA, palpatations, mental health, musculoskeletal)? @ -Differential Musculoskeletal Muscular strain, contusion, ligament sprain, fracture, arthritis, septic arthritis, bursitis, cellulitis, muscle spasm, nerve compression, DVT, arterial occlusion, herpes zoster, electrolyte abnormality, tumor.... This is not meant to be in all inclusive list EKG interpreted by me (3pts min.). @ -None X-rays interpreted by me (1pt min.). @ -x-ray right tib-fib shows no sign of osteomyelitis CT interpreted by me (1pt min.). @ -None done U/S interpreted by me (1pt. min.). @ -None done What testing was considered but not performed or refused? (CT, X-rays, U/S, labs)? Why? @ -None What meds were considered but not given or refused? Why? @ -None Did you discuss the management of the patient with other professionals (professionals i.e. DAQUAN Lipscomb, DIRECTOR DATA, lab, RT, psych nurse, geriatric social work professor, fashion consultant selling, teacher, seismology technical officer, case aide)? Give summary @-I spoke with patient's primary care physician Dr. Pisano who accepts admission and requests ID consult Was smoking cessation discussed for >3mins.? @ -No Was critical care preformed (if so, how long)? @ -No Were there social determinants of health that impacted care today? How? (Homelessness, low income, unemployed, alcoholism, drug addiction, transportation, low edu. Level, literacy, decrease access to med. care, long term, rehab)? @ -No Was there de-escalation of care discussed even if they declined (Discuss DNR or withdrawal of care, Hospice)? DNR status @ -No What co-morbidities impacted this encounter? (DM, HTN, Smoking, COPD, CAD, Cancer, CVA, ARF, Chemo, Hep., AIDS, mental health diagnosis, sleep apnea, morbid obesity)? @ -None Was patient admitted / discharged? Hospital course, mention meds given and route, prescriptions, significant lab abnormalities, going to OR and other pertinent info. @ -Admitted. 84-year-old female presenting for right leg wound x 1 week. Patient reports mechanical trip and fall, cutting her right lower leg on her bed frame last week. Patient was given a course of antibiotics from urgent care however was sent back to the ER after recheck for concern of worsening infection. Patient is afebrile. There is a 4 cm ulceration on right lateral lower leg with surrounding erythema. Neurovascularly intact. Lab work rem arkable for CRP 2.5, white blood cell count 4.4. X-ray negative for osteomyelitis. Blood cultures were taken and patient was started on IV antibiotics. Patient will be admitted to medicine with ID consult. Case was discussed with my ED attending Dr. Akhtar. Undiagnosed new problem with uncertain prognosis? @ -No Drug Therapy requiring intensive monitoring for toxicity (Heparin, Nitro, Insulin, Cardizem)? @ -No Were any procedures done? @ -No Diagnosis/symptom? @ -Right leg diabetic ulceration, failed outpatient therapy Acute, or Chronic, or Acute on Chronic? @ -Acute Uncomplicated (without systemic symptoms) or Complicated (systemic symptoms)? @ -Uncomplicated Side effects of treatment? @ -No Exacerbation, Progression, or Severe Exacerbation? @ -No Poses a threat to life or bodily function? How? (Chest pain, [place], [place], pneumonia, PE, COPD, DKA, ARF, appy, cholecystitis, CVA, Diverticulitis, Homicidal, Suicidal, threat to staff... and all critical care pts) @ -Yes - Lab Data Result diagrams: 02/03/25 15:22 02/03/25 15:22 Lab Results 02/03/25 02/03/25 02/03/25 Range/Units 15:22 15:22 15:22 WBC 4.41 L (4.50-10.00) 10*3/uL RBC 4.26 (4.10-5.20) 10*6/uL Hgb 14.1 (12.0-15.0) g/dL Hct 41.4 (37.2-46.3) % MCV 97.2 H (80.0-97.0) fL MCH 33.1 H (27.0-32.0) pg MCHC 34.1 (32.0-37.0) g/dL Plt Count 145 (140-440) 10*3/uL MPV 9.4 L (9.5-12.2) fL Immature Gran % (Auto) 0.2 % Neutrophils % 73.7 % Lymphocytes % 12.0 % Monocytes % 12.5 % Eosinophils % 1.4 % Basophils % 0.2 % Immature Gran # 0.01 (0.00-0.04) 10*3/uL Neutrophils # 3.25 (1.80-7.70) 10*3/uL Lymphocytes # 0.53 L (0.90-5.00) 10*3/uL Monocytes # 0.55 (0.20-1.00) 10*3/uL Eosinophils # 0.06 (0.04-0.35) 10*3/uL Basophils # 0.01 (0.00-0.10) 10*3/uL Sodium 136 L (137-145) mmol/L Potassium 4.2 (3.5-5.1) mmol/L Chloride 99 (98-107) mmol/L Carbon Dioxide 30 (22-30) mmol/L Anion Gap 7 mmol/L BUN 15 (7-17) mg/dL Creatinine 0.81 (0.52-1.04) mg/dL Est GFR (CKD-EPI)AfAm 79 (>60 ml/min/1.73 sqM) Est GFR (CKD-EPI)NonAf 68 (>60 ml/min/1.73 sqM) Glucose 118 H (74-99) mg/dL Plasma Lactic Acid Colby 1.0 (0.7-2.0) mmol/L Calcium 9.6 (8.4-10.2) mg/dL Total Bilirubin 0.8 (0.2-1.3) mg/dL AST 46 H (14-36) U/L ALT 31 (4-34) U/L Alkaline Phosphatase 115 (38-126) U/L C-Reactive Protein 2.5 H (<1.0) mg/dL Total Protein 7.1 (6.3-8.2) g/dL Albumin 3.4 L (3.5-5.0) g/dL Disposition Clinical Impression: Diabetic ulcer of lower leg Disposition: ADMITTED IP TO THIS HOSP Referrals: Symone Pisano MD [Primary Care Provider] - 1-2 days Time of Disposition: 17:33
[2025-02-03 15:40] LABS: Basophils # (A) 0.01 10*3/uL (0.00-0.10); Basophils % (A) 0.2 %; Eosinophils # (A) 0.06 10*3/uL (0.04-0.35); Eosinophils % (A) 1.4 %; HCT 41.4 % (37.2-46.3); HGB 14.1 g/dL (12.0-15.0); Lymphocytes # (A) 0.53 10*3/uL (0.90-5.00); MCH 33.1 pg (27.0-32.0); MCHC 34.1 g/dL (32.0-37.0); MCV 97.2 fL (80.0-97.0); Mean Platelet Volume 9.4 fL (9.5-12.2); Monocytes # (A) 0.55 10*3/uL (0.20-1.00); Monocytes % (A) 12.5 %; Neutrophils # (A) 3.25 10*3/uL (1.80-7.70); Neutrophils % (A) 73.7 %; Platelet Count 145 10*3/uL (140-440); RBC 4.26 10*6/uL (4.10-5.20); RDW 14.7 % (11.5-14.5); WBC 4.41 10*3/uL (4.50-10.00)
--- NOTE | 2025-02-03 15:57 | XR ---
EXAMINATION TYPE: XR tibia fibula RT DATE OF EXAM: 02/03/2025 3:50 PM COMPARISON: None CLINICAL INDICATION: Female, 84 years old with history of right leg infection; PHH, pain TECHNIQUE: 2 views FINDINGS: Generalized subcutaneous soft tissue swelling throughout the leg down to include the ankle. [id number] sized plantar spur incidentally noted. Some popliteal artery calcifications behind the knee. Osteopenia. No periostitis or osteolysis. No acute fracture is seen. IMPRESSION: Diffuse subcutaneous soft tissue swelling could be due to soft tissue edema or cellulitis. No underly ing acute osseous abnormality seen. [facility], Workstation: [facility], 02/03/2025 3:55 PM
[2025-02-03 16:02] LABS: ALT 31 U/L (4-34); AST 46 U/L (14-36); African American GFR (CKD) 79 (>60 ml/min/1.73 sqM); Albumin 3.4 g/dL (3.5-5.0); Alkaline Phosphatase 115 U/L (38-126); Anion Gap 7 mmol/L; Blood Urea Nitrogen 15 mg/dL (7-17); C Reactive Protein 2.5 mg/dL (<1.0); Calcium 9.6 mg/dL (8.4-10.2); Carbon Dioxide 30 mmol/L (22-30); Chloride 99 mmol/L (98-107); Glucose 118 mg/dL (74-99); Non-African American GFR(CKD) 68 (>60 ml/min/1.73 sqM); Potassium 4.2 mmol/L (3.5-5.1); Sodium 136 mmol/L (137-145); Total Bilirubin 0.8 mg/dL (0.2-1.3); Total Protein 7.1 g/dL (6.3-8.2)
[2025-02-03] MEDS ORDERED: NALOXONE 0.4 MG/ML 1 ML VIAL IV PRN (17:27)
[2025-02-03] MEDS ORDERED: ONDANSETRON 4 MG/2 ML VIAL IVP PRN (17:27)
[2025-02-03] MEDS ORDERED: ACETAMINOPHEN TAB 325 MG TAB PO PRN (17:27)
[2025-02-03] MEDS: SODIUM CHLORIDE 0.9% 1,000 ML IV SCH (18:44)
[2025-02-03] MEDS: ceFAZolin 2 GM in DEXTROSE 5% IN WATER 50 ML IVPB ONE (18:44)
[2025-02-03] MEDS ORDERED: DOCUSATE 100 MG CAP PO PRN (18:46)
--- NOTE | 2025-02-03 18:49 | P.HPIM ---
History of Present Illness H&P Date: 02/03/25 Chief Complaint: Right lower extremity cellulitis with arterial ulcer. HISTORY OF PRESENT ILLNESS: this is an 84-year-old female with a previous medical history sig nificant for hypertension and hypertensive cardio vascular disease, hyperlipidemia, diabetes mellitus type 2, osteoarthritis, history of chronic tobacco use and dependence, PAD, has been under the care of Dr. 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 Brain aneurysm, history of right hemispheric subdural hematoma after a fall back in 03/26/2023 for which she was transferred to [facility] [place] she was seen and evaluated by neurosurgery underwent maribell hole evacuation, and the patient was discharged to subacute rehabilitation at [facility], subsequently she was recovered very well, and she was living home her normal life, patient apparently had fallen at home after she tripped and hit her lateral aspect of the right leg on the bed frame, she ended up going to the urgent care, she was prescribed some oral antibiotic the patient does not recall the name, and she went back today for recheck and she was told that she need to go to the ER because the infection got worse, patient was seen in the emergency department at [facility], and I was called to admit the patient because of failed outpatient management of right lower extremity cellulitis with laceration of the right lower extremity, patient did have an x-ray of the right lower extremity that did not show evidence of acute osteomyelitis, did show soft tissue edema due to the cellulitis, blood cultures were done, wound culture aerobic and anaerobic, patient will be started on IV antibiotic in the form of Ancef 1 g IV piggyback every 6 hours. Infectious disease consultation will be obtained from Dr. Gomez. REVIEW OF SYSTEMS: Constitutional: No documented fever, no chills, no night sweats. No weight conley ge. No weakness, fatigue or lethargy. No daytime sleepiness. HEENT: No headache. No blurred vision or double vision, no loss of vision. No loss of Hearing, no ringing in the ears, no dizziness. No nasal drainage or congestion. No epistaxis. No sore throat. Lungs: No shortness of breath, no cough, no sputum production. No wheezing. Reports dyspnea with activity. Cardiovascular: No chest pain, no lower extremity edema. No palpitations. No paroxysmal nocturnal dyspnea. No orthopnea. No lightheadedness or dizziness. No syncopal episodes. Abdominal: Reports no abdominal pain. No nausea, vomiting. No diarrhea. No constipation. No bloody or tarry stools reports loss of appetite. Genitourinary: No dysuria, increased frequency, urgency. No urinary retention. Musculoskeletal: No myalgias. No muscle weakness, positive for gait dysfunction, no frequent falls. No back pain. No neck pain. Integumentary: Positive for right lateral lower extremity with elongated wound with an eschar with cellulitis and erythema. No lesions. No rash or pruritus. No unusual bruising. No change in hair or nails. Neurologic: No aphasia. No facial droop. No change in mentation. No head injury. No headache. No paralysis. No paresthesia. Psychiatric: Positive for depression. Positive for anxiety. No mood swings. Endocrine: No abnormal blood sugars. No weight change. PAST MEDICAL HISTORY: hypertension and hypertensive cardiovascular disease per Hyperlipidemia. Diabetes mellitus type 2. History of right hemispheric subdural hematoma status post bur hole evacuation. Peripheral artery disease. 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 Anxiety. Depressive disorder. Recurrent falls Macular degeneration. 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 Vitamin D deficiency. PAST SURGICAL HISTORY: right hemispheric maribell hole evacuation for subdural hematoma. Right breast lumpectomy. Bilateral toe surgery. SOCIAL HISTORY: patient smoked about half a pack every other day since she was a teenager, and she quit smoking at the beginning of the month. She denies any alcohol ingestion she denies any drug use or abuse, she lives with her who was diagnosed with vascular dementia and she is the primary caregiver for him. FAMILY HISTORY: father at age of 99 from old age, mother at age 57 from brain hemorrhage patient had 4 brothers 2 brothers were one from brain hemorrhage and one from colon cancer the other 2 brothers are healthy patient has 2 sisters both are healthy and she has 3 daughters PHYSICAL EXAMINATION: General: 84-year-old female laying down in bed in no apparent distress. HEENT: Head is atraumatic, normocephalic, pupils were equal round reactive to light and recommendation, extraocular muscle movement were intact, sclera nonicteric, conjunctivae were pale, mucous membranes of the mouth are somewhat dry. Neck: Supple, no JVP, normal carotid upstroke bilaterally, no lymphadenopathy. Chest: Decreased breath sounds at the bases, few rhonchi, no expiratory wheezes, no chest wall tenderness, no intercostal retractions. Heart: First heart sound is normal, second heart sounds normal there is systolic ejection murmur 2/6 located in the left sternal border. Abdomen: Soft, nontender, nondistended, positive bowel sounds. Extremities: There is increased edema with erythema of the lateral aspect of the right lower extremity with elongated wound with an eschar and cellulitis dorsalis pedis +1 bilaterally. Neurologic examination: Patient is awake alert and oriented X 3, cranial nerves II-12 appear grossly intact, muscle power were 4 out of 5 in upper extremities and 4 out of 5 in bilateral lower extremities, deep tendon reflexes normal bilaterally. ASSESSMENT AND PLAN: 1. Right lower extremity cellulitis with elongated wound that has an eschar with SIRS due to recent injury that failed outpatient management. Check blood culture, wound culture aerobic and anaerobic, start the patient on Ancef 2 g piggyback every 8 hours, infectious's consultation, monitor the patient's symptoms very closely 2. Hypertension and hypertensive cardiovascular disease.continue patient on atenolol 25 mg orally once every day, monitor the patient blood pressure very closely 3. Hyperlipidemia. Continue patient on atorvastatin 40 mg at bedtime along with Zetia 10 mg once every day monitor the patient lipid panel, keep LDL 55- 70. 4. diabetes mellitus type 2. Continue Farxiga 10 mg orally once every day . Start the patient on sliding scale insulin blood glucose level before each meal at bedtime. 5. anxiety disorder. Continue citalopram 20 mg once every day along with Klonopin 1 mg orally twice every day. 6. Osteoarthritis. Continue Tylenol as needed. 7. Recurrent falls . Physical therapy evaluation. 8. History of subdural hematoma status post bur hole evacuation with seizure prophylaxis continue patient on Keppra 500 mg orally twice every day 9. DVT prophylaxis. Bilateral knee-high CANDIDO hose. Start the patient on heparin 5000 units subcutaneously every 12 hours. 10. Macular degeneration. Stable. 11. admit to inpatient. Estimated length of stay 2 midnights 12. Full code. Past Medical History Past Medical History: Cancer, Diabetes Mellitus, Hyperlipidemia, Hypertension, Osteoarthritis (OA), Thyroid Disorder Additional Past Medical History / Comment(s): macular degeneration. Hx of breast cancer right breast 2005. History of Any Multi-Drug Resistant Organisms: MRSA Date of last positivie culture/infection: 06/24/24 MDRO Source:: urine Past Surgical History: Breast Surgery Additional Past Surgical History / Comment(s): bilat toe surgery? Pneumothorax 50 years ago Past Anesthesia/Blood Transfusion Reactions: No Reported Reaction Past Psychological History: No Psychological Hx Reported Smoking Status: Current every day smoker Past Alcohol Use History: None Reported Past Drug Use History: None Reported Medications and Allergies Home Medications Medication Instructions Recorded Confirmed Type Vit C/E/Zn/Coppr/Lutein/Zeaxan 1 cap PO BID 03/24/22 02/03/25 History [Preservision Areds 2 Softgel] clonazePAM [KlonoPIN] 1 mg PO BID 03/24/22 02/03/25 History Docusate [Colace] 100 mg PO DAILY PRN 04/23/23 02/03/25 History HYDROcodone/APAP 5-325MG [Mason 1 tab PO BID PRN 04/23/23 02/03/25 History 5-325] atenoloL [Tenormin] 25 mg PO DAILY #30 tab 04/26/23 02/03/25 Rx Calcium Carbonate/Vitamin D3 1 tab PO BID 10/19/23 02/03/25 History [Caltrate 600 Plus D3 20 Mcg (800 Iu)] Ezetimibe [Zetia] 10 mg PO DAILY 10/19/23 02/03/25 History Multivitamins, Thera [Multivitamin 1 tab PO DAILY 10/19/23 02/03/25 History (formulary)] Atorvastatin [Lipitor] 40 mg PO HS 02/03/25 02/03/25 History Cephalexin [Keflex] 500 mg PO Q8HR 02/03/25 02/03/25 History Cholecalciferol (Vitamin D3) 50 mcg PO DAILY 02/03/25 02/03/25 History [Vitamin D3 (50 Mcg = 2000 Iu)] Citalopram Hydrobromide [CeleXA] 20 mg PO DAILY 02/03/25 02/03/25 History Clobetasol Propionate [Temovate 1 applic TOPICAL BID 02/03/25 02/03/25 History 0.05% Cream] Dapagliflozin Propanediol [Farxiga] 10 mg PO DAILY 02/03/25 02/03/25 History Furosemide [Lasix] 20 mg PO DAILY 02/03/25 02/03/25 History levETIRAcetam [Keppra] 500 mg PO BID 02/03/25 02/03/25 History Allergies Allergy/AdvReac Type Severity Reaction Status Date / Time No Known Allergies Allergy Verified 02/03/25 18:16 Physical Exam Vitals: Vital Signs Temp Pulse Resp BP Pulse Ox 02/03/25 13:23 97.8 F 99 18 147/79 90 L Intake and Output 02/03/25 02/03/25 02/03/25 06:59 14:59 22:59 Other: Weight 73.482 kg Results CBC & Chem 7: 02/03/25 15:22 02/03/25 15:22 Labs: Abnormal Lab Results - Last 24 Hours (Table) 02/03/25 02/03/25 Range/Units 15:22 15:22 WBC 4.41 L (4.50-10.00) 10*3/uL MCV 97.2 H (80.0-97.0) fL MCH 33.1 H (27.0-32.0) pg MPV 9.4 L (9.5-12.2) fL Lymphocytes # 0.53 L (0.90-5.00) 10*3/uL Sodium 136 L (137-145) mmol/L Glucose 118 H (74-99) mg/dL AST 46 H (14-36) U/L C-Reactive Protein 2.5 H (<1.0) mg/dL Albumin 3.4 L (3.5-5.0) g/dL
[2025-02-03] MEDS: HYDROcodone/APAP 5-325MG 1 EACH TAB PO PRN (19:38)
[2025-02-03] MEDS: clonazePAM 1 MG TAB PO SCH (20:11)
[2025-02-03] MEDS: levETIRAcetam 500 MG TAB PO SCH (20:11)
[2025-02-03] MEDS: HEPARIN SODIUM,PORCINE 5,000 UNIT/ML 1 ML VIAL SQ SCH (20:12)
[2025-02-03] MEDS: CALCIUM CARB-VIT D 500 MG-5 MCG TAB PO SCH (20:12)
[2025-02-03] MEDS: ATORVASTATIN 40 MG TAB PO SCH (20:12)
[2025-02-03] MEDS ORDERED: NON FORMULARY DRUG (Vit C/E/Zn/Coppr/Lutein/Zeaxan [Preservision Areds 2 Softgel] 1 EACH C PO SCH (21:00)
[2025-02-03] MEDS: HYDROmorphone 1 MG/ML 1 ML SYRINGE IVP PRN (22:35)
[2025-02-04] MEDS: ceFAZolin 2 GM in DEXTROSE 5% IN WATER 50 ML IVPB SCH (01:07)
[2025-02-04 06:21] LABS: Glucose,Whole Blood 109 mg/dL (70-110)
[2025-02-04 07:22] LABS: ALT 27 U/L (4-34); AST 45 U/L (14-36); African American GFR (CKD) 89 (>60 ml/min/1.73 sqM); Albumin 2.9 g/dL (3.5-5.0); Alkaline Phosphatase 117 U/L (38-126); Anion Gap 6 mmol/L; Blood Urea Nitrogen 13 mg/dL (7-17); Calcium 8.7 mg/dL (8.4-10.2); Carbon Dioxide 27 mmol/L (22-30); Chloride 104 mmol/L (98-107); Glucose 108 mg/dL (74-99); Non-African American GFR(CKD) 77 (>60 ml/min/1.73 sqM); Potassium 3.6 mmol/L (3.5-5.1); Sodium 137 mmol/L (137-145); Total Bilirubin 0.5 mg/dL (0.2-1.3); Total Protein 6.4 g/dL (6.3-8.2)
[2025-02-04 07:28] LABS: Basophils # (A) 0.02 10*3/uL (0.00-0.10); Basophils % (A) 0.5 %; Eosinophils # (A) 0.08 10*3/uL (0.04-0.35); Eosinophils % (A) 2.1 %; HGB 13.8 g/dL (12.0-15.0); Lymphocytes # (A) 0.56 10*3/uL (0.90-5.00); Lymphocytes % (A) 14.5 %; MCH 33.3 pg (27.0-32.0); MCHC 34.5 g/dL (32.0-37.0); MCV 96.6 fL (80.0-97.0); Mean Platelet Volume 9.7 fL (9.5-12.2); Monocytes # (A) 0.62 10*3/uL (0.20-1.00); Monocytes % (A) 16.1 %; Neutrophils # (A) 2.54 10*3/uL (1.80-7.70); Platelet Count 149 10*3/uL (140-440); RBC 4.14 10*6/uL (4.10-5.20); RDW 14.7 % (11.5-14.5); WBC 3.85 10*3/uL (4.50-10.00)
[2025-02-04] MEDS: INSULIN LISPRO (HumaLOG) 100 UNIT/ML 10 mL VL SQ SCH (07:31)
[2025-02-04] MEDS: CITALOPRAM HYDROBROMIDE 20 MG TAB PO SCH (09:07)
[2025-02-04] MEDS: MULTIVITAMINS, THERA 1 EACH TAB PO SCH (09:07)
[2025-02-04] MEDS: PANTOPRAZOLE 40 MG TABLET PO SCH (09:07)
[2025-02-04] MEDS: FUROSEMIDE 20 MG TAB PO SCH (09:07)
[2025-02-04] MEDS: CHOLECALCIFEROL 25 MCG (1000 IU) TABLET PO SCH (09:07)
[2025-02-04] MEDS: atenoloL 25 MG TAB PO SCH (09:08)
[2025-02-04] MEDS: DAPAGLIFLOZIN PROPANEDIOL 10 MG TABLET PO SCH (09:08)
[2025-02-04] MEDS: EZETIMIBE 10 MG TAB PO SCH (09:08)
[2025-02-04 11:09] LABS: Glucose,Whole Blood 108 mg/dL (70-110)
--- NOTE | 2025-02-04 12:47 | P.PN ---
Subjective Progress Note Date: 02/04/25 HISTORY OF PRESENT ILLNESS: this is an 84-year-old female with a previous medical history signi ficant for hypertension and hypertensive cardio vascular disease, hyperlipidemia, diabetes mellitus type 2, osteoarthritis, history of chronic tobacco use and dependence, PAD, has been under the care of Dr. 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 Brain aneurysm, history of right hemispheric subdural hematoma after a fall back in 03/26/2023 for which she was transferred to [facility] [place] at [place] she was seen and evaluated by neurosurgery underwent maribell hole evacuation, and the patient was discharged to subacute rehabilitation at [facility], subsequently she was recovered very well, and she was living home her normal life, patient apparently had fallen at home after she tripped and hit her lateral aspect of the right leg on the bed frame, she ended up going to the urgent care, she was prescribed some oral antibiotic the patient does not recall the name, and she went back today for recheck and she was told that she need to go to the ER because the infection got worse, patient was seen in the emergency department at [facility], and I was called to admit the patient because of failed outpatient management of right lower extremity cellulitis with laceration of the right lower extremity, patient did have an x-ray of the right lower extremity that did not show evidence of acute osteomyelitis, did show soft tissue edema due to the cellulitis, blood cultures were done, wound culture aerobic and anaerobic, patient will be started on IV antibiotic in the form of Ancef 1 g IV piggyback every 6 hours. Infectious disease consultation will be obtained from Dr. Gomez. 02/04: Patient is sitting up in bed in no apparent distress, she denies any fever or chills at this time, she denies any sore throat, she has no diarrhea, no abdominal pain nausea vomiting or diarrhea, she has no other issues, she has been getting Ancef 2 g IV piggyback every 8 hours, her right lower extremity continues to be swollen, minimal erythema, better than yesterday, an elongated wound to the lateral aspect of the right leg with an eschar/scab, no evidence of drainage at this point in time. Will continue current treatment plan, follow-up with the patient very closely. REVIEW OF SYSTEMS: Constitutional: No documented fever, no chills, no night sweats. No weight change. No weakness, fatigue or lethargy. No daytime sleepiness. HEENT: No headache. No blurred vision or double vision, no loss of vision. No loss of Hearing, no ringing in the ears, no dizziness. No nasal drainage or congestion. No epistaxis. No sore throat. Lungs: No shortness of breath, no cough, no sputum production. No wheezing. Reports dyspnea with activity. Cardiovascular: No chest pain, no lower extremity edema. No palpitations. No paroxysmal nocturnal dyspnea. No orthopnea. No lightheadedness or dizziness. No syncopal episodes. Abdominal: Reports no abdominal pain. No nausea, vomiting. No diarrhea. No constipation. No bloody or tarry stools reports loss of appetite. Genitourinary: No dysuria, increased frequency, urgency. No urinary retention. Musculoskeletal: No myalgias. No muscle weakness, positive for gait dysfunction, no frequent falls. No back pain. No neck pain. Integumentary: Positive for right lateral lower extremity with elongated wound with an eschar with cellulitis and erythema. No lesions. No rash or pruritus. No unusual bruising. No change in hair or nails. Neurologic: No aphasia. No facial droop. No change in mentation. No head injury. No headache. No paralysis. No paresthesia. Psychiatric: Positive for depression. Positive for anxiety. No mood swings. Endocrine: No abnormal blood sugars. No weight change. PHYSICAL EXAMINATION: General: 84-year-old female laying down in bed in no apparent distress. HEENT: Head is atraumatic, normocephalic, pupils were equal round reactive to light and recommendation, extraocular muscle movement were intact, sclera nonicteric, conjunctivae were pale, mucous membranes of the mouth are somewhat dry. Neck: Supple, no JVP, normal carotid upstroke bilaterally, no lymphadenopathy. Chest: Decreased breath sounds at the bases, few rhonchi, no expiratory wheezes, no chest wall tenderness, no intercostal retractions. Heart: First heart sound is normal, second heart sounds normal there is systolic ejection murmur 2/6 located in the left sternal border. Abdomen: Soft, nontender, nondistended, positive bowel sounds. Extremities: There is increased edema with erythema of the lateral aspect of the right lower extremity with elongated wound with an eschar and cellulitis dorsalis pedis +1 bilaterally. Neurologic examination: Patient is awake alert and oriented X 3, cranial nerves II-12 appear grossly intact, muscle power were 4 out of 5 in upper extremities and 4 out of 5 in bilateral lower extremities, deep tendon reflexes normal bilaterally. ASSESSMENT AND PLAN: 1. Right lower extremity cellulitis with elongated wound that has an eschar with SIRS due to recent injury that failed outpatient management. Continue cefazolin 2 g IV piggyback every 8 hours, continue local skin care, infectious's consultation appreciated, blood cultures pending, wound culture still pending. 2. Hypertension and hypertensive cardiovascular disease.continue patient on atenolol 25 mg orally once every day, monitor the patient blood pressure very closely 3. Hyperlipidemia. Continue patient on atorvastatin 40 mg at bedtime along with Zetia 10 mg once every day monitor the patient lipid panel, keep LDL 55- 70. 4. diabetes mellitus type 2. Continue Farxiga 10 mg orally once every day . Start the patient on sliding scale insulin blood glucose level before each meal at bedtime. 5. anxiety disorder. Continue citalopram 20 mg once every day along with Klonopin 1 mg orally twice every day. 6. Osteoarthritis. Continue Tylenol as needed. 7. Recurrent falls . Physical therapy evaluation. 8. History of subdural hematoma status post bur hole evacuation with seizure prophylaxis continue patient on Keppra 500 mg orally twice every day 9. DVT prophylaxis. Bilateral knee-high CANDIDO hose. Start the patient on heparin 5000 units subcutaneously every 12 hours. 10. Macular degeneration. Stable. 11. PT OT evaluation. 12. spool worker consultation for discharge planning. Objective - Vital Signs Vital signs: Vital Signs Temp 98.9 F 02/04/25 07:00 Pulse 56 L 02/04/25 07:00 Resp 18 02/04/25 07:00 BP 125/61 02/04/25 07:00 Pulse Ox 96 02/04/25 07:00 FiO2 Intake & Output 02/03/25 02/04/25 02/04/25 18:59 06:59 18:59 Intake Total 610 250 Balance 610 250 Weight 73.482 kg 73.482 kg Intake: Intake, IV Titration 250 Amount Sodium Chloride 0.9% 1, 200 000 ml @ 20 mls/hr IV . Q24H [facility] Rx#:[id number] ceFAZolin 2 gm In 50 Dextrose 5% in Water 50 ml @ 100 mls/hr IVPB Q8H [facility] Rx#:[id number] Oral 360 250 Other: Voiding Method Toilet # Voids 1 # Bowel Movements 1 - Labs CBC & Chem 7: 02/04/25 06:20 02/04/25 06:20 Labs: Abnormal Lab Results - Last 24 Hours (Table) 02/03/25 02/03/25 02/04/25 Range/Units 15:22 15:22 06:20 WBC 4.41 L 3.85 L (4.50-10.00) 10*3/uL MCV 97.2 H (80.0-97.0) fL MCH 33.1 H 33.3 H (27.0-32.0) pg MPV 9.4 L (9.5-12.2) fL Lymphocytes # 0.53 L 0.56 L (0.90-5.00) 10*3/uL Sodium 136 L (137-145) mmol/L Glucose 118 H (74-99) mg/dL AST 46 H (14-36) U/L C-Reactive Protein 2.5 H (<1.0) mg/dL Albumin 3.4 L (3.5-5.0) g/dL 02/04/25 Range/Units 06:20 WBC (4.50-10.00) 10*3/uL MCV (80.0-97.0) fL MCH (27.0-32.0) pg MPV (9.5-12.2) fL Lymphocytes # (0.90-5.00) 10*3/uL Sodium (137-145) mmol/L Glucose 108 H (74-99) mg/dL AST 45 H (14-36) U/L C-Reactive Protein (<1.0) mg/dL Albumin 2.9 L (3.5-5.0) g/dL
[2025-02-04 16:42] LABS: Glucose,Whole Blood 138 mg/dL (70-110)
[2025-02-04 20:20] LABS: Glucose,Whole Blood 101 mg/dL (70-110)
--- NOTE | 2025-02-04 21:26 | P.CONS ---
History of Present Illness - Reason for Consult Consult date: 02/04/25 Right lower extremity diabetic ulceration Requesting physician: Lyric Amaya - Chief Complaint Right leg wound swelling and redness x days - History of Present Illness Patient is 84-year-old female with a past medical history significant for diabetes mellitus hypertension hyperlipidemia osteoarthritis history of breast cancer, presenting to the hospital for evaluation of right lower extremity wound swelling and redness apparently the patient did fell in her bedroom about a week ago and did have a laceration to the right lower leg from the bed frame patient did went to the urgent care with some local dressing was applied and she has been treated with a course of oral antibiotic patient subsequently went back to the urgent care for follow-up as she was noticed to have worsening of the right lower extremity for the patient was advised to go to the hospital patient denies high-grade fever or chills denies any headache chest pain shortness of breath or cough no nausea vomiting abdominal pain or diarrhea has been complaining of pain to right lower extremity mostly dull aching mild to moderate intense without radiation with associated swelling redness and denies any foul-smelling drainage patient on presentation to the hospital was afebrile patient was not tachycardic hypotensive or hypoxic she did have white count of 4.41 creatinine 0.81 electrolyte has been normal AST was mildly elevated patient did have x-ray of the tibia-fibula negative for any fracture patient was started on cefazolin infectious disease was consulted for further management of antibiotic therapy Review of Systems Positive point and negatives has been mentioned in the HPI, complete review of systems was performed and all other systems are negative Past Medical History Past Medical History: Cancer, Diabetes Mellitus, Hyperlipidemia, Hypertension, Osteoarthritis (OA), Thyroid Disorder Additional Past Medical History / Comment(s): macular degeneration. Hx of breast cancer right breast 2005. History of Any Multi-Drug Resistant Organisms: MRSA Year Discovered:: 06/24/24 MDRO Source:: urine Past Surgical History: Breast Surgery Additional Past Surgical History / Comment(s): bilat toe surgery, Pneumothorax 50 years ago Past Anesthesia/Blood Transfusion Reactions: No Reported Reaction Past Psychological History: No Psychological Hx Reported Smoking Status: Current every day smoker Past Alcohol Use History: None Reported Past Drug Use History: None Reported Medications and Allergies Home Medications Medication Instructions Recorded Confirmed Type Vit C/E/Zn/Coppr/Lutein/Zeaxan 1 cap PO BID 03/24/22 02/03/25 History [Preservision Areds 2 Softgel] clonazePAM [KlonoPIN] 1 mg PO BID 03/24/22 02/03/25 History Docusate [Colace] 100 mg PO DAILY PRN 04/23/23 02/03/25 History HYDROcodone/APAP 5-325MG [[place] 1 tab PO BID PRN 04/23/23 02/03/25 History 5-325] atenoloL [Tenormin] 25 mg PO DAILY #30 tab 04/26/23 02/03/25 Rx Calcium Carbonate/Vitamin D3 1 tab PO BID 10/19/23 02/03/25 History [Caltrate 600 Plus D3 20 Mcg (800 Iu)] Ezetimibe [Zetia] 10 mg PO DAILY 10/19/23 02/03/25 History Multivitamins, Thera [Multivitamin 1 tab PO DAILY 10/19/23 02/03/25 History (formulary)] Atorvastatin [Lipitor] 40 mg PO HS 02/03/25 02/03/25 History Cephalexin [Keflex] 500 mg PO Q8HR 02/03/25 02/03/25 History Cholecalciferol (Vitamin D3) 50 mcg PO DAILY 02/03/25 02/03/25 History [Vitamin D3 (50 Mcg = 2000 Iu)] Citalopram Hydrobromide [CeleXA] 20 mg PO DAILY 02/03/25 02/03/25 History Clobetasol Propionate [Temovate 1 applic TOPICAL BID 02/03/25 02/03/25 History 0.05% Cream] Dapagliflozin Propanediol [Farxiga] 10 mg PO DAILY 02/03/25 02/03/25 History Furosemide [Lasix] 20 mg PO DAILY 02/03/25 02/03/25 History levETIRAcetam [Keppra] 500 mg PO BID 02/03/25 02/03/25 History Allergies Allergy/AdvReac Type Severity Reaction Status Date / Time No Known Allergies Allergy Verified 02/03/25 18:16 Physical Exam Vitals: Vital Signs Temp Pulse Pulse Resp BP BP Pulse Ox 02/04/25 07:00 98.9 F 56 L 18 125/61 96 02/04/25 01:13 98.8 F 86 18 131/72 96 02/03/25 19:20 98.2 F 81 16 139/82 97 02/03/25 19:06 99.0 F 51 L 20 148/69 95 02/03/25 13:23 97.8 F 99 18 147/79 90 L Intake and Output 02/03/25 02/04/25 02/04/25 22:59 06:59 14:59 Intake Total 240 370 250 Balance 240 370 250 Intake: Intake, IV Titration 250 Amount Sodium Chloride 0.9% 1, 200 000 ml @ 20 mls/hr IV . Q24H [facility] Rx#:[id number] ceFAZolin 2 gm In 50 Dextrose 5% in Water 50 ml @ 100 mls/hr IVPB Q8H [facility] Rx#:[id number] Oral 240 120 250 Other: Voiding Method Toilet # Voids 2 1 # Bowel Movements 1 Weight 73.482 kg GENERAL DESCRIPTION: Elderly female lying in bed, no distress. No tachypnea or accessory muscle of respiration use. HEENT: Shows Pallor , no scleral icterus. Oral mucous membrane is dry. NECK: Trachea central, no thyromegaly. LUNGS: Unlabored breathing. Clear to auscultation anteriorly. No wheeze or crackle. HEART: S1, S2, regular rate and rhythm. No loud murmur ABDOMEN: Soft, no tenderness , guarding or rigidity, no organomegaly EXTREMITIES: Right lower extremity with area of skin necrosis surrounding swelling redness minimal drainage that was cultured SKIN: No rash, no masses palpable. NEUROLOGICAL: The patient is awake, alert, oriented x3, mood and affect normal. Results CBC & Chem 7: 02/04/25 06:20 02/04/25 06:20 Labs: Abnormal Lab Results - Last 24 Hours (Table) 02/03/25 02/03/25 02/04/25 Range/Units 15:22 15:22 06:20 WBC 4.41 L 3.85 L (4.50-10.00) 10*3/uL MCV 97.2 H (80.0-97.0) fL MCH 33.1 H 33.3 H (27.0-32.0) pg MPV 9.4 L (9.5-12.2) fL Lymphocytes # 0.53 L 0.56 L (0.90-5.00) 10*3/uL Sodium 136 L (137-145) mmol/L Glucose 118 H (74-99) mg/dL AST 46 H (14-36) U/L C-Reactive Protein 2.5 H (<1.0) mg/dL Albumin 3.4 L (3.5-5.0) g/dL 02/04/25 Range/Units 06:20 WBC (4.50-10.00) 10*3/uL MCV (80.0-97.0) fL MCH (27.0-32.0) pg MPV (9.5-12.2) fL Lymphocytes # (0.90-5.00) 10*3/uL Sodium (137-145) mmol/L Glucose 108 H (74-99) mg/dL AST 45 H (14-36) U/L C-Reactive Protein (<1.0) mg/dL Albumin 2.9 L (3.5-5.0) g/dL Assessment and Plan (1) Cellulitis of right lower extremity Current Visit: Yes Status: Acute Code(s): L03.115 - CELLULITIS OF RIGHT LOWER LIMB SNOMED Code(s): 46568279514320909 (2) Failure of outpatient treatment Current Visit: Yes Status: Acute Code(s): Z78.9 - OTHER SPECIFIED HEALTH STATUS SNOMED Code(s): 394207394 (3) Diabetic ulcer of lower leg Current Visit: Yes Status: Acute Code(s): E11.622 - TYPE 2 DIABETES MELLITUS WITH OTHER SKIN ULCER; L97.909 - NON-PRS CHRONIC ULC UNSP PRT OF UNSP LOW LEG W UNSP SEVERITY SNOMED Code(s): 655550957 Plan: 1patient presented hospital with the wound to the right lower extremity sustained about a week ago from hitting the bed frame failing outpatient antibiotic therapy patient did have some skin necrosis and cellulitis millijoule drainage that has been cultured 2-we will advise local care with a dry dressing followed by Cj wrap to keep the swelling down 3-for now we will continue with the cefazolin 2 g every 8 hours while waiting for the culture to finalize We will follow on clinical condition and cultures to further adjust medication if needed Thank you for this consultation we will follow the patient along with you Dictation was produced using [employer] software. please excuse any grammatical, word or spelling errors. Time with Patient: Greater than 30
[2025-02-04] MEDS: VIT A,C & E-LUTEIN-MINERALS 1 EACH TAB PO SCH (21:43)
[2025-02-05 06:06] LABS: Glucose,Whole Blood 104 mg/dL (70-110)
[2025-02-05 11:13] VITALS: BMI 26.1
[2025-02-05 11:45] LABS: Glucose,Whole Blood 85 mg/dL (70-110)
--- NOTE | 2025-02-05 12:57 | P.PN ---
Subjective Progress Note Date: 02/05/25 Principal diagnosis: Reason for follow-up is right leg wound and cellulitis Patient is 84-year-old female with a past medical history significant for diabetes mellitus hypertension hyperlipidemia osteoarthritis history of breast cancer, presenting to the hospital for evaluation of right lower extremity wound swelling and redness failing outpatient treatment. On today's evaluation that is 02/05/2025, Patient is afebrile patient is currently on room air and denies having any shortness of breath, the patient denies any chest pain or cough, the patient denies any nausea vomiting did not have any abdominal pain and no diarrhea, mention pain and swelling to the neck is slightly decreased. No new lab has been obtained today cultures are currently pending Objective - Vital Signs Vital signs: Vital Signs Temp 98.6 F 02/05/25 07:00 Pulse 46 L 02/05/25 07:00 Resp 16 02/05/25 07:00 BP 139/76 02/05/25 07:00 Pulse Ox 96 02/05/25 07:00 FiO2 Intake & Output 02/04/25 02/05/25 02/05/25 18:59 06:59 18:59 Intake Total 730 250 250 Balance 730 250 250 Intake: Intake, IV Titration 10 Amount Sodium Chloride 0.9% 1, 10 000 ml @ 20 mls/hr IV . Q24H [facility] [place] Rx#:[id number] Oral 730 240 250 Other: Voiding Method Toilet Toilet # Voids 1 - Exam GENERAL DESCRIPTION: An elderly up in bed in no distress RESPIRATORY SYSTEM: Unlabored breathing , decreased breath sounds at bases HEART: S1 S2 regular rate and rhythm , ABDOMEN: Soft , no tenderness EXTREMITIES: Right wound is currently dressed - Labs CBC & Chem 7: 02/04/25 06:20 02/04/25 06:20 Labs: Abnormal Lab Results - Last 24 Hours (Table) 02/04/25 Range/Units 16:40 POC Glucose (mg/dL) 138 H (70-110) mg/dL Microbiology - Last 24 Hours (Table) 02/04/25 12:38 Gram Stain - Preliminary Leg - Right Wound Culture - Preliminary 02/03/25 18:20 Blood Culture - Preliminary Blood Assessment and Plan (1) Cellulitis of right lower extremity Current Visit: Yes Status: Acute Code(s): L03.115 - CELLULITIS OF RIGHT LOWER LIMB SNOMED Code(s): 47374120032545970 (2) Failure of outpatient treatment Current Visit: Yes Status: Acute Code(s): Z78.9 - OTHER SPECIFIED HEALTH STATUS SNOMED Code(s): 283984363 (3) Diabetic ulcer of lower leg Current Visit: Yes Status: Acute Code(s): E11.622 - TYPE 2 DIABETES MELLITUS WITH OTHER SKIN ULCER; L97.909 - NON-PRS CHRONIC ULC UNSP PRT OF UNSP LOW LEG W UNSP SEVERITY SNOMED Code(s): 927367578 Plan: 1patient presented hospital with the wound to the right lower extremity sustained about a week ago from hitting the bed frame failing outpatient antibiotic therapy patient did have some skin necrosis and cellulitis millijoule drainage that has been cultured 2-patient to continue local care with a dry dressing followed by Cj wrap to keep the swelling down 3-patient mentions some improvement cultures are currently pending we will treat cefazolin 2 g every 8 hours while waiting for the culture to finalize Dictation was produced using [employer] dictation software. please excuse any grammatical, word or spelling errors. Time with Patient: Less than 30
--- NOTE | 2025-02-05 16:11 | P.PN ---
Subjective Progress Note Date: 02/05/25 HISTORY OF PRESENT ILLNESS: this is an 84-year-old female with a previous medical history signi ficant for hypertension and hypertensive cardio vascular disease, hyperlipidemia, diabetes mellitus type 2, osteoarthritis, history of chronic tobacco use and dependence, PAD, has been under the care of Dr. 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 Brain aneurysm, history of right hemispheric subdural hematoma after a fall back in 03/26/2023 for which she was transferred to [facility] [place] she was seen and evaluated by neurosurgery underwent maribell hole evacuation, and the patient was discharged to subacute rehabilitation at [facility], subsequently she was recovered very well, and she was living home her normal life, patient apparently had fallen at home after she tripped and hit her lateral aspect of the right leg on the bed frame, she ended up going to the urgent care, she was prescribed some oral antibiotic the patient does not recall the name, and she went back today for recheck and she was told that she need to go to the ER because the infection got worse, patient was seen in the emergency department at [facility], and I was called to admit the patient because of failed outpatient management of right lower extremity cellulitis with laceration of the right lower extremity, patient did have an x-ray of the right lower extremity that did not show evidence of acute osteomyelitis, did show soft tissue edema due to the cellulitis, blood cultures were done, wound culture aerobic and anaerobic, patient will be started on IV antibiotic in the form of Ancef 1 g IV piggyback every 6 hours. Infectious disease consultation will be obtained from Dr. Gomez. 02/04: Patient is sitting up in bed in no apparent distress, she denies any fever or chills at this time, she denies any sore throat, she has no diarrhea, no abdominal pain nausea vomiting or diarrhea, she has no other issues, she has been getting Ancef 2 g IV piggyback every 8 hours, her right lower extremity continues to be swollen, minimal erythema, better than yesterday, an elongated wound to the lateral aspect of the right leg with an eschar/scab, no evidence of drainage at this point in time. Will continue current treatment plan, follow-up with the patient very closely. 02/05: Patient is laying down in bed in no apparent distress, she denies any chest pain, shortness of breath, she has no abdominal pain, she seems to be tolerating treatment very well, she continues to be on cefazolin 2 g IV piggyback every 8 hours, culture still pending, no fever or chills at this time, continue to have some swelling and erythema to the right lower extremity, I will follow-up with the patient in the next 24 hours, once the cultures are back we can switch the patient to oral antibiotic and she can be discharged home tomorrow morning. REVIEW OF SYSTEMS: Constitutional: No documented fever, no chills, no night sweats. No weight change. No weakness, fatigue or lethargy. No daytime sleepiness. HEENT: No headache. No blurred vision or double vision, no loss of vision. No loss of Hearing, no ringing in the ears, no dizziness. No nasal drainage or congestion. No epistaxis. No sore throat. Lungs: No shortness of breath, no cough, no sputum production. No wheezing. Reports dyspnea with activity. Cardiovascular: No chest pain, no lower extremity edema. No palpitations. No paroxysmal nocturnal dyspnea. No orthopnea. No lightheadedness or dizziness. No syncopal episodes. Abdominal: Reports no abdominal pain. No nausea, vomiting. No diarrhea. No constipation. No bloody or tarry stools reports loss of appetite. Genitourinary: No dysuria, increased frequency, urgency. No urinary retention. Musculoskeletal: No myalgias. No muscle weakness, positive for gait dysfunction, no frequent falls. No back pain. No neck pain. Integumentary: Positive for right lateral lower extremity with elongated wound with an eschar with cellulitis and erythema. No lesions. No rash or pruritus. No unusual bruising. No change in hair or nails. Neurologic: No aphasia. No facial droop. No change in mentation. No head injury. No headache. No paralysis. No paresthesia. Psychiatric: Positive for depression. Positive for anxiety. No mood swings. Endocrine: No abnormal blood sugars. No weight change. PHYSICAL EXAMINATION: General: 84-year-old female laying down in bed in no apparent distress. HEENT: Head is atraumatic, normocephalic, pupils were equal round reactive to light and recommendation, extraocular muscle movement were intact, sclera nonicteric, conjunctivae were pale, mucous membranes of the mouth are somewhat dry. Neck: Supple, no JVP, normal carotid upstroke bilaterally, no lymphadenopathy. Chest: Decreased breath sounds at the bases, few rhonchi, no expiratory wheezes, no chest wall tenderness, no intercostal retractions. Heart: First heart sound is normal, second heart sounds normal there is systolic ejection murmur 2/6 located in the left sternal border. Abdomen: Soft, nontender, nondistended, positive bowel sounds. Extremities: There is increased edema with erythema of the lateral aspect of the right lower extremity with elongated wound with an eschar and cellulitis dorsalis pedis +1 bilaterally. Neurologic examination: Patient is awake alert and oriented X 3, cranial nerves II-12 appear grossly intact, muscle power were 4 out of 5 in upper extremities and 4 out of 5 in bilateral lower extremities, deep tendon reflexes normal walt aterally. ASSESSMENT AND PLAN: 1. Right lower extremity cellulitis with elongated wound that has an eschar with SIRS due to recent injury that failed outpatient management. Continue cefazolin 2 g IV piggyback every 8 hours, continue local skin care, infectious's consultation appreciated, blood cultures pending, wound culture still pending. 2. Hypertension and hypertensive cardiovascular disease.continue patient on atenolol 25 mg orally once every day, monitor the patient blood pressure very closely 3. Hyperlipidemia. Continue patient on atorvastatin 40 mg at bedtime along with Zetia 10 mg once every day monitor the patient lipid panel, keep LDL 55- 70. 4. diabetes mellitus type 2. Continue Farxiga 10 mg orally once every day . Start the patient on sliding scale insulin blood glucose level before each meal at bedtime. 5. anxiety disorder. Continue citalopram 20 mg once every day along with Klonopin 1 mg orally twice every day. 6. Osteoarthritis. Continue Tylenol as needed. 7. Recurrent falls . Physical therapy evaluation. 8. History of subdural hematoma status post bur hole evacuation with seizure prophylaxis continue patient on Keppra 500 mg orally twice every day 9. DVT prophylaxis. Bilateral knee-high CANDIDO hose. Start the patient on heparin 5000 units subcutaneously every 12 hours. 10. Macular degeneration. Stable. 11. PT OT evaluation. 12. day worker consultation for discharge planning. 13. Likely home tomorrow morning. Objective - Vital Signs Vital signs: Vital Signs Temp 98.6 F 02/05/25 07:00 Pulse 46 L 02/05/25 07:00 Resp 16 02/05/25 07:00 BP 139/76 02/05/25 07:00 Pulse Ox 96 02/05/25 07:00 FiO2 Intake & Output 02/04/25 02/05/25 02/05/25 18:59 06:59 18:59 Intake Total 730 250 250 Balance 730 250 250 Intake: Intake, IV Titration 10 Amount Sodium Chloride 0.9% 1, 10 000 ml @ 20 mls/hr IV . Q24H [facility] Rx#:[id number] Oral 730 240 250 Other: Voiding Method Toilet Toilet # Voids 1 - Labs CBC & Chem 7: 02/04/25 06:20 02/04/25 06:20 Labs: Abnormal Lab Results - Last 24 Hours (Table) 02/04/25 Range/Units 16:40 POC Glucose (mg/dL) 138 H (70-110) mg/dL Microbiology - Last 24 Hours (Table) 02/04/25 12:38 Gram Stain - Preliminary Leg - Right Wound Culture - Preliminary 02/03/25 18:20 Blood Culture - Preliminary Blood
[2025-02-05 16:33] LABS: Glucose,Whole Blood 161 mg/dL (70-110)
[2025-02-05 20:38] LABS: Glucose,Whole Blood 104 mg/dL (70-110)
[2025-02-06 05:55] LABS: Glucose,Whole Blood 100 mg/dL (70-110)
[2025-02-06 09:27] VITALS: RESP 20
--- NOTE | 2025-02-06 09:45 | P.DS ---
Providers Date of admission: 02/03/25 16:38 Expected date of discharge: 02/06/25 Attending physician: Symone Pisano Consults: 02/03/25 17:27 Consult Physician Urgent Consulting Provider: Renzo Gomez Consult Reason/Comments: Right lower leg diabetic ulceration, failed outpatient treatment Do you want consulting provider notified?: Yes Primary care physician: Symone Pisano Hospital Course: HISTORY OF PRESENT ILLNESS: this is an 84-year-old female with a previous medical history significant for hypertension and hypertensive cardio vascular disease, hyperlipidemia, diabetes mellitus type 2, osteoarthritis, history of chronic tobacco use and dependence, PAD, has been under the care of Dr. 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 Brain aneurysm, history of right hemispheric subdural hematoma after a fall back in 03/26/2023 for which she was transferred to [facility] [place] she was seen and evaluated by neurosurgery underwent maribell hole evacuation, and the patient was discharged to subacute rehabilitation at [facility], subsequently she was recovered very well, and she was living home her normal life, patient apparently had fallen at home after she tripped and hit her lateral aspect of the right leg on the bed frame, she ended up going to the urgent care, she was prescribed some oral antibiotic the patient does not recall the name, and she went back today for recheck and she was told that she need to go to the ER because the infection got worse, patient was seen in the emergency department at [facility], and I was called to admit the patient because of failed outpatient management of right lower extremity cellulitis with laceration of the right lower extremity, patient did have an x-ray of the right lower extremity that did not show evidence of acute osteomyelitis, did show soft tissue edema due to the cellulitis, blood cultures were done, wound culture aerobic and anaerobic, patient will be started on IV antibiotic in the form of Ancef 1 g IV piggyback every 6 hours. Infectious disease consultation will be obtained from Dr. Gomez. 02/04: Patient is sitting up in bed in no apparent distress, she denies any fever or chills at this time, she denies any sore throat, she has no diarrhea, no abdominal pain nausea vomiting or diarrhea, she has no other issues, she has been getting Ancef 2 g IV piggyback every 8 hours, her right lower extremity continues to be swollen, minimal erythema, better than yesterday, an elongated wound to the lateral aspect of the right leg with an eschar/scab, no evidence of drainage at this point in time. Will continue current treatment plan, follow-up with the patient very closely. 02/05: Patient is laying down in bed in no apparent distress, she denies any chest pain, shortness of breath, she has no abdominal pain, she seems to be tolerating treatment very well, she continues to be on cefazolin 2 g IV piggyback every 8 hours, culture still pending, no fever or chills at this time, continue to have some swelling and erythema to the right lower extremity, I will follow-up with the patient in the next 24 hours, once the cultures are back we can switch the patient to oral antibiotic and she can be discharged home tomorrow morning. 02/06: Patient is sitting up in bed in no apparent distress, she has no fever or chills at this time, she has no chest pain or shortness of breath, her culture did not grow anything, will discontinue Ancef at this time, start the patient on cephalexin 500 mg orally 3 times every day for 7 days and patient can be discharged home if okay with infectious disease. Discharge diagnoses: 1. Right lower extremity cellulitis with elongated wound that has an eschar with SIRS 2. Hypertension and hypertensive cardiovascular disease 3. Hyperlipidemia. 4. diabetes mellitus type 2. 5. anxiety disorder. 6. Osteoarthritis. 7. Recurrent falls . 8. History of subdural hematoma status post bur hole evacuation with seizure prophylaxis continue patient on Keppra 500 mg orally twice every day Patient Condition at Discharge: Stable Plan - Discharge Summary Discharge Rx Participant: No New Discharge Prescriptions: No Action Calcium Carbonate/Vitamin D3 [Caltrate 600 Plus D3 20 Mcg (800 Iu)] 1 tab PO BID Ezetimibe [Zetia] 10 mg PO DAILY Multivitamins, Thera [Multivitamin (formulary)] 1 tab PO DAILY Dapagliflozin Propanediol [Farxiga] 10 mg PO DAILY Furosemide [Lasix] 20 mg PO DAILY Cholecalciferol (Vitamin D3) [Vitamin D3 (50 Mcg = 2000 Iu)] 50 mcg PO DAILY clonazePAM [KlonoPIN] 1 mg PO BID Vit C/E/Zn/Coppr/Lutein/Zeaxan [Preservision Areds 2 Softgel] 1 cap PO BID HYDROcodone/APAP 5-325MG [[place] 5-325] 1 tab PO BID PRN PRN Reason: Pain Docusate [Colace] 100 mg PO DAILY PRN PRN Reason: Constipation atenoloL [Tenormin] 25 mg PO DAILY #30 tab levETIRAcetam [Keppra] 500 mg PO BID Clobetasol Propionate [Temovate 0.05% Cream] 1 applic TOPICAL BID Citalopram Hydrobromide [CeleXA] 20 mg PO DAILY Atorvastatin [Lipitor] 40 mg PO HS Cephalexin [Keflex] 500 mg PO Q8HR Discharge Medication List Vit C/E/Zn/Coppr/Lutein/Zeaxan [Preservision Areds 2 Softgel] 1 cap PO BID 03/24/22 [History] clonazePAM [KlonoPIN] 1 mg PO BID 03/24/22 [History] Docusate [Colace] 100 mg PO DAILY PRN 04/23/23 [History] HYDROcodone/APAP 5-325MG [[place] 5-325] 1 tab PO BID PRN 04/23/23 [History] atenoloL [Tenormin] 25 mg PO DAILY #30 tab 04/26/23 [Rx] Calcium Carbonate/Vitamin D3 [Caltrate 600 Plus D3 20 Mcg (800 Iu)] 1 tab PO BID 10/19/23 [History] Ezetimibe [Zetia] 10 mg PO DAILY 10/19/23 [History] Multivitamins, Thera [Multivitamin (formulary)] 1 tab PO DAILY 10/19/23 [History] Atorvastatin [Lipitor] 40 mg PO HS 02/03/25 [History] Cephalexin [Keflex] 500 mg PO Q8HR 02/03/25 [History] Cholecalciferol (Vitamin D3) [Vitamin D3 (50 Mcg = 2000 Iu)] 50 mcg PO DAILY 0 02/03/25 [History] Citalopram Hydrobromide [CeleXA] 20 mg PO DAILY 02/03/25 [History] Clobetasol Propionate [Temovate 0.05% Cream] 1 applic TOPICAL BID 02/03/25 [History] Dapagliflozin Propanediol [Farxiga] 10 mg PO DAILY 02/03/25 [History] Furosemide [Lasix] 20 mg PO DAILY 02/03/25 [History] levETIRAcetam [Keppra] 500 mg PO BID 02/03/25 [History] Follow up Appointment(s)/Referral(s): Symone Pisano MD [Primary Care Provider] - 1-2 days
[2025-02-06 11:43] LABS: Glucose,Whole Blood 96 mg/dL (70-110)
[2025-02-06 14:16] VITALS: BP 138/85; PULSE 99; TEMP 99.2
--- NOTE | 2025-02-06 14:50 | P.PN ---
Subjective Progress Note Date: 02/06/25 Principal diagnosis: Reason for follow-up is right leg wound and cellulitis Patient is 84-year-old female with a past medical history significant for diabetes mellitus hypertension hyperlipidemia osteoarthritis history of breast cancer, presenting to the hospital for evaluation of right lower extremity wound swelling and redness failing outpatient treatment. On today's evaluation that is 02/06/2025, patient has been afebrile, patient is breathing comfortably and is currently on room air, patient denies having any chest pain and cough, patient denies nausea vomiting or diarrhea and no abdominal pain, pain in the right lower extremity has decreased in intensity. No new lab has been obtained today culture has been negative Objective - Vital Signs Vital signs: Vital Signs Temp 98.7 F 02/06/25 09:23 Pulse 58 L 02/06/25 09:23 Resp 20 02/06/25 09:23 BP 137/75 02/06/25 09:23 Pulse Ox 94 L 02/06/25 09:23 FiO2 Intake & Output 02/05/25 02/06/25 02/06/25 18:59 06:59 18:59 Intake Total 490 120 Balance 490 120 Weight 73.482 kg Intake: Oral 490 120 Other: Voiding Method Toilet Toilet Toilet # Voids 1 1 0 - Exam GENERAL DESCRIPTION: An elderly up in bed in no distress RESPIRATORY SYSTEM: Unlabored breathing , decreased breath sounds at bases HEART: S1 S2 regular rate and rhythm , ABDOMEN: Soft , no tenderness EXTREMITIES: Right wound is currently dressed RN who change dressing mention overall improvement - Labs CBC & Chem 7: 02/04/25 06:20 02/04/25 06:20 Labs: Abnormal Lab Results - Last 24 Hours (Table) 02/05/25 Range/Units 16:32 POC Glucose (mg/dL) 161 H (70-110) mg/dL Microbiology - Last 24 Hours (Table) 02/04/25 12:38 Gram Stain - Final Leg - Right Wound Culture - Final 02/03/25 18:20 Blood Culture - Preliminary Blood Assessment and Plan (1) Cellulitis of right lower extremity Current Visit: Yes Status: Acute Code(s): L03.115 - CELLULITIS OF RIGHT LOWER LIMB SNOMED Code(s): 83976932698878109 (2) Failure of outpatient treatment Current Visit: Yes Status: Acute Code(s): Z78.9 - OTHER SPECIFIED HEALTH STATUS SNOMED Code(s): 673331738 (3) Diabetic ulcer of lower leg Current Visit: Yes Status: Acute Code(s): E11.622 - TYPE 2 DIABETES MELLITUS WITH OTHER SKIN ULCER; L97.909 - NON-PRS CHRONIC ULC UNSP PRT OF UNSP LOW LEG W UNSP SEVERITY SNOMED Code(s): 972977040 Plan: 1patient presented hospital with the wound to the right lower extremity sustained about a week ago from hitting the bed frame failing outpatient antibiotic therapy patient did have some skin necrosis and cellulitis millijoule drainage that has been cultured 2-patient to continue local care with a dry dressing followed by Cj wrap to keep the swelling down and short course of oral Keflex on discharge as the culture have been negative for any resistant pathogen Dictation was produced using [employer] software. please excuse any grammatical, word or spelling errors.
--- NOTE | 2025-02-10 21:23 | CDI ---
Documentation Clarification Form Date: 02-10-25 From: MARIE Noel Admit Date: 02/03/2025 04:38:00 PM Patient Name: Christy Dhaliwal Visit Number: [id number] Discharge Date: 02/06/2025 05:04:00 PM ATTENTION: The Clinical Documentation Specialists (CDI) and [facility] Coding Staff appreciate your assistance in clarifying documentation. Please respond to the clarification below the line at the bottom and electronically sign. The CDI & [facility] Coding staff will review the response and follow-up if needed. Please note: Queries are made part of the Legal Health Record. If you have any questions, please contact the author of this message via ITS. Doctor/Provider: Symone Pisano Cellulitis is documented in the H&P, Progress Notes 02/04-02/06 and the Discharge Summary. Additional clarification regarding the type of cellulitis is requested. History/risk factors: Patient presented hospital with the wound to the right lower extremity sustained about a week ago from hitting the bed frame failing outpatient antibiotic therapy patient did have some skin necrosis and cellulitis. Clinical Indicators: She has right lower extremity with elongated wound with an eschar with cellulitis and erythema. Treatment: Failed outpatient antibiotic treatment pre admission. Started on IV Ancef on this admission. Please clarify the etiology of the cellulitis, if known: [ ] Cellulitis is a diabetic skin complication [ x ] Cellulitis is not a diabetic skin complication [ ] Other, please specify: [ ] Unable to determine (Template Last Revised: September 2022) MTDD
== END 2025-02-06 17:04 | disposition home health service (06) | DRG 638 ==
LOC: EC 12:57 → 5NMEDONC 16:37 → OBSVTOIN 16:38 → 1SOBS 18:45
PROVIDERS: ADMIT Internal Medicine; ATTEND Internal Medicine
DX: E11.622 Type 2 diabetes mellitus with other skin ulcer (principal); E11.52 Type 2 diabetes mellitus with diabetic peripheral angiopathy with gangrene; L03.115 Cellulitis of right lower limb; I70.238 Atherosclerosis of native arteries of right leg with ulceration of other part of lower leg; R65.10 Systemic inflammatory response syndrome (SIRS) of non-infectious origin without acute organ dysfunction; S81.811A Laceration without foreign body, right lower leg, initial encounter; I11.9 Hypertensive heart disease without heart failure; E78.5 Hyperlipidemia, unspecified; F17.210 Nicotine dependence, cigarettes, uncomplicated; M19.90 Unspecified osteoarthritis, unspecified site; R29.6 Repeated falls; H35.30 Unspecified macular degeneration; F41.9 Anxiety disorder, unspecified; Z79.84 Long term (current) use of oral hypoglycemic drugs; Z79.899 Other long term (current) drug therapy; Z85.3 Personal history of malignant neoplasm of breast
CPT/HCPCS: 36415; 80053; 83605; 85025; 86140; 87040; 87070; 87075; 87205; 96365; 96375; 99285

== ENCOUNTER → 2025-03-31 | Outpatient (CLI) | payer MEDICARE ==
--- NOTE | 2025-03-31 10:42 | US ---
EXAMINATION TYPE: US liver DATE OF EXAM: 03/31/2025 COMPARISON: US 04/18/2024 CLINICAL INDICATION: Female, 84 years old with history of R74.8 ELEVATED LIVER ENZYMES; Elevated live r enzymes TECHNIQUE: Grayscale and color Doppler imaging of the right upper quadrant. FINDINGS: EXAM MEASUREMENTS: Liver Length: 13.2 cm Gallbladder Wall: 0.25 cm CBD: 0.80 cm, color Doppler imaging was utilized to isolate the common bile duct for measurement. Right Kidney: 10.2 x 4.9 x 4.2 cm BASKET PATCHER NOTES: *Exam is very limited due to gas Pancreas: Hyperechoic. Tail was obscured by gas. Duct measures 3 mm. Liver: *Appears coarse/heterogeneous Gallbladder: *Hyperechoic material seen within: 2.2 x 1.8 x 0.8 cm. Evidence for sonographic Shah's sign: No CBD: Dilated Right Kidney: No hydronephrosis or masses seen IMPRESSION: 1. No evidence for acute process. 2. Biliary sludge/cholelithiasis. [facility], , 03/31/2025 10:39 AM
== END | disposition home or self-care (01) ==
LOC: RADUSWWP 09:51
PROVIDERS: ATTEND Internal Medicine
DX: K80.20 Calculus of gallbladder without cholecystitis without obstruction (principal); R74.8 Abnormal levels of other serum enzymes
CPT/HCPCS: 76705